=== PATIENT | male | born 1970 | race Caucasian/White ===

== ENCOUNTER 2020-09-13 11:01 | Outpatient (REF) | payer OTHER, SELFPAY ==
--- NOTE | 2020-09-13 11:10 | XR_ITS ---
EXAMINATION: XR CHEST CLINICAL INFORMATION: Cough COMPARISON: Previous chest and right rib x-ray December 2017 TECHNIQUE: 2 views of the chest were obtained. FINDINGS: The cardiac and mediastinal contours are stable. The lungs are clear. There is no pleural effusion or pneumothorax. There is an old right anterior seventh rib fracture. There are degenerative changes of the spine. XR/XR chest 2V IMPRESSION: No evidence for acute disease in the chest.
== END 2020-09-13 11:02 | disposition home or self-care (01) ==
LOC: HO.XRAY 11:01
PROVIDERS: PCP Internal Medicine Medical Oncology; Visit Provider Internal Medicine Medical Oncology
DX: R05 Cough (principal)
CPT/HCPCS: 71046

== ENCOUNTER 2021-08-25 09:23 | Day surgery (SDC) | payer OTHER, SELFPAY ==
[2021-08-19 12:15] VITALS: BMI 39.6
--- NOTE | 2021-08-22 09:27 | P.CONAN_ITS ---
Documented by User: Citlalli Stevens NP 08/22/21 09:28 HPI - Anesthesia Eval Consult details Narrative: 50yo M for Colonoscopy [facility] Past Medical History Medical History (Updated 08/25/21 @ 09:32 by Cheli Ledesma) ADHD (attention deficit hyperactivity disorder) History of meniscal tear Hypertension HAROLDO on CPAP Personal history of COVID-19 Surgical History Surgical History (Updated 08/19/21 @ 12:10 by Dolly Huddleston RN) Hx of umbilical hernia repair Social History Social History Patient Tobacco Use Status: Never used Tobacco Use of substances other than those prescribed or required for medical reasons: No Are you DNR?: No Advance Directives: No Advance Directives Information Provided: Yes Meds Allergies Allergy/AdvReac Type Severity Reaction Status Date / Time pollen Allergy Unknown hives, Uncoded 08/25/21 09:50 sneezing Home Medications Medication Instructions Recorded Confirmed Last Taken Type clonazepam 0.5 mg tablet 1 tab PO BEDTIME 08/19/21 08/19/21 Unknown History lisdexamfetamine 50 mg capsule 1 cap PO QAM 08/19/21 08/19/21 Unknown History (Vyvanse) metoprolol succinate 50 mg 1 tab PO DAILY 08/19/21 08/25/21 08/25/21 08:45 History tablet,extended release 24 hr naproxen 500 mg tablet 1 tab PO Q12H PRN 08/19/21 08/25/21 08/20/21 History sildenafil 100 mg tablet 1 tab PO DAILY PRN 08/19/21 08/19/21 Unknown History sodium hyaluronate (viscosup) mg INTRA-ARTICULAR 08/19/21 Unknown History (Euflexxa) Exam Exam Date and Time: August 22, 2021 0927 Height,Weight and Vital Signs: Height 5 ft 11 in Weight 128.82 kg Assessment and Plan Assessment Anesthesia Assessment: Chart Reviewed Documented by User: Pretty Benson MD 08/25/21 10:14 [facility] Past Medical History Medical History (Updated 08/25/21 @ 09:32 by Cheli Ledesma) ADHD (attention deficit hyperactivity disorder) History of meniscal tear Hypertension HAROLDO on CPAP Personal history of COVID-19 Functional capacity: independent ambulation Family History Family history of problems with anesthesia: No Surgical History Surgical History (Updated 08/19/21 @ 12:10 by Dolly Huddleston RN) Hx of umbilical hernia repair History of Problems with Anesthesia: No Social History Social History Patient Tobacco Use Status: Never used Tobacco Use of substances other than those prescribed or required for medical reasons: No Are you DNR?: No Advance Directives: No Advance Directives Information Provided: Yes Meds Allergies Allergy/AdvReac Type Severity Reaction Status Date / Time pollen Allergy Unknown hives, Uncoded 08/25/21 09:50 sneezing Home Medications Medication Instructions Recorded Confirmed Last Taken Type clonazepam 0.5 mg tablet 1 tab PO BEDTIME 08/19/21 08/19/21 Unknown History lisdexamfetamine 50 mg capsule 1 cap PO QAM 08/19/21 08/19/21 Unknown History (Vyvanse) metoprolol succinate 50 mg 1 tab PO DAILY 08/19/21 08/25/21 08/25/21 08:45 History tablet,extended release 24 hr naproxen 500 mg tablet 1 tab PO Q12H PRN 08/19/21 08/25/21 08/20/21 History sildenafil 100 mg tablet 1 tab PO DAILY PRN 08/19/21 08/19/21 Unknown History sodium hyaluronate (viscosup) mg INTRA-ARTICULAR 08/19/21 Unknown History (Euflexxa) Exam Airway Mallampati Class: IV TM Dist: >3cm Neck ROM: Full Heart: RRR Lungs: CTA Assessment and Plan Final Anesthetic Review Family History of Problems with Anesthesia: No History of Problems with Anesthesia: No Final Preanesthetic Review: No Changes in Pt Med Stat Patient Risk: Intermediate Procedure Risk: Low Anesthetic Plan Anesthetic Plan: MAC: Disposition: Standard PACU
[2021-08-25 09:58] VITALS: BMI 38.3
[2021-08-25 10:00] VITALS: BP 178/81; PULSE 59; RESP 16; TEMP 37.2; O2SAT 96
[2021-08-25] MEDS: Lactated Ringers 1,000 ML 100 ML IVCONT (10:20)
[2021-08-25 11:32] VITALS: BP 128/75; PULSE 62; RESP 16; TEMP 37.2; O2SAT 97
--- NOTE | 2021-08-25 11:34 | PM.OP ---
Brief Operative Note Date of Service: 08/25/21 Pre-op diagnosis: Screening Post-op diagnosis: other (Diverticulosis) Procedure: Colonoscopy to the cecum and TI Surgeon: Michele Brandon Anesthesia: MAC Was an Plasma Processing Centrifuge Operator used for this Procedure?: No Estimated blood loss (mL): 0 Pathology: none sent Condition: stable Disposition: PACU
[2021-08-25 11:47] VITALS: BP 130/79; PULSE 56; RESP 16; TEMP 37.2; O2SAT 97
--- NOTE | 2021-08-25 13:15 | HO.POSTANES ---
Post Anesthesia Evaluation Post Anesthesia Evaluation Vital Signs: Vital Signs Temp Pulse Resp BP Pulse Ox 08/25/21 11:47 99.0 F 56 16 130/79 97 08/25/21 11:32 99.0 F 62 16 128/75 97 08/25/21 10:00 98.9 F 59 16 178/81 H 96 Anesthesia: Monitored Mental Status: Awake Pain Control: Satisfactory Hydration: Adequate Anesthesia-Related Issues: No Anes. Related Issues
--- NOTE | 2021-08-25 13:20 | HO.POSTANES ---
Post Anesthesia Evaluation Post Anesthesia Evaluation Vital Signs: Vital Signs Temp Pulse Resp BP Pulse Ox 08/25/21 11:47 99.0 F 56 16 130/79 97 08/25/21 11:32 99.0 F 62 16 128/75 97 08/25/21 10:00 98.9 F 59 16 178/81 H 96 Anesthesia: Monitored Mental Status: Awake Pain Control: Satisfactory Nausea/Vomiting: None Hydration: Adequate
--- NOTE | 2021-08-25 14:49 | OP_ITS ---
SURGEON: Michele Brandon MD INDICATIONS: The patient presents for evaluation of colorectal cancer screening. Full consent has been obtained from him for this, including risks of bleeding and perforation. PREOPERATIVE DIAGNOSIS: Colorectal cancer screening. POSTOPERATIVE DIAGNOSIS: PROCEDURE PERFORMED: Colonoscopy to cecum and terminal ileum. ESTIMATED BLOOD LOSS: COMPLICATIONS: ANESTHESIA: Monitored anesthesia care. ASSISTANTS: SPECIMENS: POSTOPERATIVE DIAGNOSES: Colorectal cancer screening, sigmoid diverticulosis, and internal hemorrhoids. DESCRIPTION OF PROCEDURE: The patient was placed in the left lateral decubitus position. The digital rectal exam revealed no abnormalities. The Olympus video pediatric colonoscope was entered into the rectum and advanced easily to the cecum. Once in the cecum, I did identify normal-appearing cecal pouch with appendiceal orifice and a normal-appearing ileocecal valve. The terminal ileum was cannulated and appeared normal. The scope was withdrawn back in the colon. The entire cecum and ileocecal valve appeared normal. The scope was slowly withdrawn assessing all mucosal surfaces carefully. Preparation was excellent. I did not visualize any sign of polyps, colitis, nor angiodysplasia. There was a moderate amount of sigmoid diverticulosis. In the rectum, scope was retroflexed visualizing minimal internal hemorrhoids, but no other pathology. The rectal mucosa appeared normal. The scope was straightened out and withdrawn from the patient. He tolerated the procedure well and was returned to the recovery area in stable condition. IMPRESSION: 1. Diverticulosis. 2. Internal hemorrhoids. PLAN: Given today's negative colonoscopy and negative family history, I would recommend a followup colonoscopy in 10 years. He will otherwise see me on a p.r.n. basis. MD CANDELARIO Singh/SARIKA / [phone]
== END 2021-08-25 12:20 | disposition home or self-care (01) ==
PROVIDERS: PCP Internal Medicine Medical Oncology; Visit Provider Internal Medicine
PROC: 0DJD8ZZ Inspection of Lower Intestinal Tract, Via Natural or Artificial Opening Endoscopic (ICD-10-PCS; CPT 45378; principal; 2021-08-25 10:20)
DX: Z12.11 Encounter for screening for malignant neoplasm of colon (principal); K57.30 Diverticulosis of large intestine without perforation or abscess without bleeding; K64.8 Other hemorrhoids; G47.33 Obstructive sleep apnea (adult) (pediatric); I10 Essential (primary) hypertension; Z99.89 Dependence on other enabling machines and devices; Z79.899 Other long term (current) drug therapy; Z86.16 Personal history of COVID-19
CPT/HCPCS: 45378

== ENCOUNTER 2021-12-04 19:30 | Emergency (ER) | payer OTHER, SELFPAY ==
--- NOTE | ~2021-12-04 | XR_ITS ---
EXAMINATION: XR FOOT, LEFT CLINICAL INFORMATION: Puncture male COMPARISON: None TECHNIQUE: AP, lateral, and oblique views of the left foot. FINDINGS: No fracture or dislocation. No evidence for radiopaque foreign body. XR/XR foot LT 2V IMPRESSION: No fracture or dislocation is seen. No radiopaque foreign body is seen.
[2021-12-04 20:36] VITALS: BP 161/95; PULSE 60; RESP 18; TEMP 36.2; O2SAT 97; BMI 37.6
[2021-12-04] MEDS: Diphth,Pertus(ACell),Tet Adult 0.5 ML SYRINGE IM (22:54)
--- NOTE | 2021-12-04 23:17 | ED_ITS ---
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 Patient denies no other trauma. Patient unknown last tetanus shot. Patient denies any active bleeding. Patient states small puncture wound. Related Data Home Medications Medication Instructions Recorded Confirmed clonazepam 0.5 mg tablet 1 tab PO BEDTIME 08/19/21 08/19/21 lisdexamfetamine 50 mg capsule 1 cap PO QAM 08/19/21 08/19/21 (Vyvanse) metoprolol succinate 50 mg 1 tab PO DAILY 08/19/21 08/25/21 tablet,extended release 24 hr naproxen 500 mg tablet 1 tab PO Q12H PRN 08/19/21 08/25/21 sildenafil 100 mg tablet 1 tab PO DAILY PRN 08/19/21 08/19/21 sodium hyaluronate (viscosup) mg INTRA-ARTICULAR 08/19/21 (Euflexxa) Previous Rx's Medication Instructions Recorded ciprofloxacin HCl 500 mg tablet 500 mg PO Q12H 7 Days #14 tab 12/04/21 naproxen 500 mg tablet 500 mg PO BID PRN 10 Days #20 tab 12/04/21 Allergies Allergy/AdvReac Type Severity Reaction Status Date / Time pollen Allergy Unknown hives, Uncoded 08/25/21 09:50 sneezing Review of Systems Review of Systems: NEEDLE FOOT Yes all other systems are reviewed and are negative [facility] Past Medical History Medical History (Updated 12/05/21 @ 00:02 by Skyla Paniagua) ADHD (attention deficit hyperactivity disorder) History of meniscal tear Hypertension HAROLDO on CPAP Personal history of COVID-19 Surgical History Hx of umbilical hernia repair Social History Social History Patient Tobacco Use Status: Never used Tobacco Advance Directives: No Advance Directives Information Provided: Yes Physical Exam Vital Signs: Vital Signs: Last Vital Signs Temp 97.2 F 12/04/21 20:36 Pulse 60 12/04/21 20:36 Resp 18 12/04/21 20:36 BP 161/95 H 12/04/21 20:36 Pulse Ox 97 12/04/21 20:36 BMI result Body Mass Index 37.6 Const: General: cooperative, healthy appearing, comfortable, no acute distress, well developed, alert, awake and Physically active Orien tation/consciousness: patient oriented x3 HENMT: Head: Yes normal to inspection, Yes No palpable skull fracture present, Yes normocephalic, Yes atraumatic and No abrasion Eyes: General: appearance normal, both eyes and all related structures Neck: Neck: Yes normal visual inspection, Yes full ROM, Yes no lymphadenopathy, Yes no meningeal signs, Yes trachea midline, Yes supple, No anterior neck swelling and No tender Chest: Chest palpation & inspection: normal inspection of the chest and normal palpation of entire chest wall Resp: Effort & Inspection: normal respiratory effort and able to speak in complete sentences Auscultation: clear to auscultation bilaterally Cardio: Jugular venous distension: no JVD Heart sounds: S1 normal heart sound present and S2 normal heart sound present GI: Inspection: Yes normal to inspection and No abdominal wall ecchymosis Palpation (GI): Soft to palpation, not firm, nontender, no guarding and not rigid : General: No CVA tenderness and Yes no CVA tenderness Back/Spine/Pelvis: Back: no CVA tenderness, No CVA tenderness and No back tenderness Skin: General skin exam: no rashes or lesions noted and elasticity normal Neuro: General: patient oriented x3, gait normal, no meningeal signs and CN's II-XI intact bilaterally Cranial nerves: Yes CN's II-XII intact bilaterally Extrem: General: Yes normal to inspection and Yes full ROM Ankle/foot/toe images: 1. VERY SMALL SUPERFICIAL PUNCTURE WOUND. NO ACTIVE BLEEDING. NO OBVIOUS FOREIGN BODY. NEURO/MOTOR/VASCULAR EXAM INTACT Psych: Appearance: grossly normal, well kempt and not disheveled Course Course Course Narrative: FOOT X-RAY ORDERED. Reevaluation(s) Reevaluation #1: X-RAY OF FOOT NEGATIVE FOR ANY FOREIGN BODY. TDAP ORDERED. PATIENT WILL BE DISCHARGED WITH CIPRO DUE TO NEEDLE GOING THROUGH BOOT GOING TO FOOT. Time: 23:21 MDM - Extremity Injury (Lower) MDM Narrative Medical decision making narrative: NAIL THROUGH FOOT Discharge Plan Discharge Clinical Impression: Puncture wound of foot Patient Disposition: Home, Self-Care Instructions: Puncture Wound (DC), Puncture Wound in the Foot (ED) Additional Instructions: YOU WILL BE DISCHARGED WITH ANTIBIOTICS TO PREVENT INFECTION. RETURN TO THE ED IMMEDIATELY FOR ANY SWELLING, REDNESS, PUS DISCHARGE, FOUL ODOR, FEVER, CHILLS, OR ANY OTHER CONCERNING SYMPTOMS. Prescriptions: New ciprofloxacin HCl 500 mg tablet 500 mg PO Q12H 7 Days Qty: 14 0RF naproxen 500 mg tablet 500 mg PO BID PRN (Reason: pain) 10 Days Qty: 20 0RF No Action metoprolol succinate 50 mg tablet extended release 24 hr 1 tab PO DAILY 0RF clonazepam 0.5 mg tablet 1 tab PO BEDTIME 0RF sildenafil 100 mg tablet 1 tab PO DAILY PRN (Reason: Erectile Dysfunction) 0RF naproxen 500 mg tablet 1 tab PO Q12H PRN (Reason: Pain) 0RF Vyvanse 50 mg capsule 1 cap PO QAM 0RF Euflexxa 10 mg/mL(mw 2.4 -3.6 million) syringe INTRA-ARTICULAR 0RF Referrals: [facility] [Outside] - 2 days (NAIL IN FOOT AT WORK) Stand Alone Forms: Work/School Release Interventions: ED Discharge Assessment Last Done: 12/04/21 23:29 Discharge Date/Time: 12/04/21 23:29 Print Language: Sami
== END 2021-12-04 23:29 | disposition home or self-care (01) ==
PROVIDERS: Emergency Provider Emergency Medicine Emergency Medical Services; PCP Internal Medicine Medical Oncology
DX: S91.332A Puncture wound without foreign body, left foot, initial encounter (principal); W45.0XXA Nail entering through skin, initial encounter; Y93.89 Activity, other specified; Y92.89 Other specified places as the place of occurrence of the external cause; Y99.0 Civilian activity done for income or pay
CPT/HCPCS: 73620; 90471; 90715; 99283; 99284

== ENCOUNTER → 2021-12-05 09:37 | Outpatient (BNVA) | payer OTHER, SELFPAY | PROVIDERS: PCP Internal Medicine Medical Oncology; Visit Provider Internal Medicine | DX: S91.132A Puncture wound without foreign body of left great toe without damage to nail, initial encounter (principal); W45.0XXA Nail entering through skin, initial encounter | CPT/HCPCS: 99203 ==

== ENCOUNTER 2022-07-29 14:00 | Outpatient (RCR) | payer OTHER, SELFPAY | END 2022-07-29 16:29 | disposition home or self-care (01) | LOC: HO.PTCHIC 14:00 | PROVIDERS: PCP Internal Medicine Medical Oncology; Visit Provider Orthopaedic Surgery | DX: Z96.651 Presence of right artificial knee joint (principal) | CPT/HCPCS: 97014; 97110; 97140; 97161; 97530 ==

== ENCOUNTER 2022-10-02 14:00 | Outpatient (RCR) | payer OTHER, SELFPAY | END 2022-10-02 15:19 | disposition home or self-care (01) | LOC: HO.PTCHIC 14:00 | PROVIDERS: PCP Internal Medicine Medical Oncology; Visit Provider Orthopaedic Surgery | DX: M17.9 Osteoarthritis of knee, unspecified (principal) | CPT/HCPCS: 97110; 97140; 97161; 97530 ==

== ENCOUNTER 2023-05-01 07:45 | Outpatient (REF) | payer OTHER, SELFPAY ==
[2023-05-01 08:25] LABS: MANUAL DIFF FLAG NO
[2023-05-01 08:51] LABS: Basophils Percent Auto 0.1 % (0-2); Eosinophils Absolute Auto 0.2 X10*3/uL (0.0-0.4); Eosinophils Percent Auto 3.4 % (0-4); Hematocrit 44.9 % (42.0-52.0); Hemoglobin 15.2 g/dl (14.0-18.0); Imm Gran Abs Auto 0.02 X10*3/uL (0.00-0.03); Imm Gran Pct Auto 0.3 % (0.0-0.4); Lymphocytes Absolute Auto 1.9 X10*3/uL (1.2-4.9); Lymphocytes Percent Auto 27.1 % (20-40); Mean Corpuscular HGB Conc 33.9 g/dl (31.0-36.0); Mean Corpuscular Volume 85.5 fL (80.0-98.0); Mean Platelet Volume 9.7 fL (9.4-12.4); Monocytes Absolute Auto 0.6 X10*3/uL (0.1-1.2); Monocytes Percent Auto 8.7 % (2-11); Neutrophils Absolute Auto 4.1 x10*3/uL (2.0-8.3); Neutrophils Percent Auto 60.4 % (45-73); Platelet Count 201 X10*3/uL (160-400); Red Blood Count 5.25 X10*6/uL (4.60-5.80); White Blood Count 6.8 X10*3/uL (4.8-10.8)
[2023-05-01 09:19] LABS: Alanine Aminotransferase 26 U/L (0-40); Albumin Level 3.8 g/dL (3.5-5.0); Alkaline Phosphatase 61 U/L (39-117); Anion Gap 14 (12-20); Aspartate Amino Transferase 20 U/L (5-37); Bilirubin Total 1.6 mg/dL (0.0-1.0); Blood Urea Nitrogen 16 mg/dL (9-16); Calcium 8.7 mg/dL (8.4-10.2); Carbon Dioxide 21 mmol/L (22-29); Chloride 109 mmol/L (96-108); Cholesterol 163 mg/dL; Estimated Glomerular Filt Rate > 60; Glucose Random 107 mg/dL (60-115); HDL Cholesterol 43 mg/dL; LDL Cholesterol Calculated 101 mg/dl; Potassium 3.8 mmol/L (3.3-5.1); Sodium 140 mmol/L (135-145); Total Protein 6.7 g/dL (6.5-8.0); Triglycerides 99 mg/dL
[2023-05-01 09:45] LABS: Prostate Specific Antigen 1.29 ng/mL (<0.05-4.0)
== END 2023-05-01 07:46 | disposition home or self-care (01) ==
LOC: HO.LAB 07:45
PROVIDERS: PCP Internal Medicine Medical Oncology; Visit Provider Internal Medicine Medical Oncology
DX: Z12.5 Encounter for screening for malignant neoplasm of prostate (principal); I10 Essential (primary) hypertension; E66.01 Morbid (severe) obesity due to excess calories
CPT/HCPCS: 36415; 80053; 80061; 84153; 85025

== ENCOUNTER 2024-12-14 06:39 | Outpatient (REF) | payer BC, SELFPAY ==
--- OUTSIDE RECORDS SUMMARY | 2024-12-14 06:42 | XMS_ITS ---
Author Organization Michele Alexander III, MD Address [address] [place] [address] Care Team Providers Care Glass Designer Name Role Phone Michele Alexander Primary Care Provider Allergies Allergen (clinical drug ingredient) Drug/Non Drug Allergy documented on EMR Reaction Allergy Type Onset Date Status Pollen Pollen Unknown Allergy Active REASON FOR VISIT Morbid obesity, Pruritic dermatitis chest wall, Benign prostatic plasia, Sleep apnea, Hearing loss,Hypertension Medications Medication SIG (Take, Route, Frequency, Duration) Notes Start Date End Date Status Triamcinolone Acetonide 0.1 % 1 application Externally twice a day for 30 days 09/18/2024 Active Zepbound 7.5 MG/0.5ML 0.5 mL Subcutaneou s weekly dispense 4 pens 07/03/2024 Active Viagra 100 MG 1 tablet as needed Orally Once a day 01/31/2019 Active Lisinopril 40 MG 1 tablet Orally Once a day 09/13/2023 Active Vyvanse 50 MG 1 capsule in the morning Orally Once a day Active Metoprolol Succinate ER 100 MG TAKE 1 TABLET BY MOUTH EVERY DAY Active Naproxen 500 MG TAKE 1 TABLET BY MOUTH EVERY 12 HOURS WITH FOOD OR MILK NEEDED Active Social History Tobacco Use: Social History Observation Description Date Details (start date - stop date) Never Smoker NA - NA Sex Assigned At : Social History Observation Description Sex Assigned At Male Tobacco Use/Smoking Question Answer Notes Patient is a nonsmoker Additional Findings: Tobacco Non-User Aggressive non-smoker Alcohol Screen Question Answer Notes Did you have a drink contain ing alcohol in the past year? Yes How often did you have a dri nk containing alcohol in the past year? 2 to 4 times a month (2 points) How many drinks did you have on a typical day when you were drinking in the past year? 1 or 2 drinks (0 point) How often did you have 6 or more drinks on one occasion in the past year? Never (0 point) Points 2 Interpretation Negative Problems Problem Type SNOMED Code ICD Code Onset Dates Problem Status W/U Status Risk Notes Problem [id number] Other obesity due to excess calories (E66.09) Active confirmed He has lost 12 pounds since his last visit. He was continued on current medication without change. Follow-up was arranged. Vital Signs Temperature 97.9 degrees Fahrenheit 09/18/20 24 Blood pressure systolic 140 mm Hg 09/18/20 24 Blood pressure diastolic 82 mm Hg 024 Heart Rate 60 /min 09/18/2024 Height 70 in 09/18/2024 Weight 269 lbs 09/18/2024 BMI 38.59 kg/m2 09/18/2024 Encounters Encounter Location Date Provider Diagnosis Michele Alexander III, MD [address] [place] [address] [place] [address] 09/18/2024 Michele Alexander Sleep apnea G47.30 ; Other obesity due to excess calories E66.09 ; ADHD (attention deficit hyperactivity disorder) F90.9 ; Sensorineural hearing loss (SNHL) of right ear with unrestricted hearing of left ear H90.41 ; BPH (benign prostatic hyperplasia) N40.0 ; Right knee pain M25.561 ; Essential hypertension I10 and Dermatitis, unspecified L30.9 Assessments Encounter Date Diagnosis (ICD Code) Assessment Notes Treat ment Notes Treatment Clinical Notes 09/18/2024 Sleep apnea (ICD-10 - G47.30) He says he is using his CPAP machine and likes it very much. He has one for home and one for travel. 09/18/2024 Other obesity due to excess calories (ICD-10 - E66.09) He has lost 15 pounds since his last visit in June 2024. He was continued on current medication without change. Follow-up was arranged. 09/18/2024 ADHD (attention deficit hyperactivity disorder) (ICD-10 - F90.9) His deficit is stable and requires no treatment at this time. 09/18/2024 Sensorineural hearing loss (SNHL) of right ear with unrestricted hearing of left ear (ICD-10 - H90.41) There is nothing in his history other than his employment in the [employer] that would cause hearing loss. 09/18/2024 BPH (benign prostatic hyperplasia) (ICD-10 - N40.0) We have discussed lifestyle modifications which are reduced nocturnal urinating. He rises on the average of once a night. No change in his regimen was needed. 09/18/2024 Right knee pain (ICD-10 - M25.561) His knee pain is mild to moderate and does not interfere with work. He uses ibuprofen and Tylenol and rest. 09/18/2024 Essential hypertension (ICD-10 - I10) His blood pressure is coming under control. He is continuing his efforts is sodium restriction weight loss and physical activity. He finds the arthritis in his right knee eliminating his activity. We discussed her weight reduction diet at length. 09/18/2024 Dermatitis, unspecified (ICD-10 - L30.9) He was givenn a supply of triamcinolone to use. Plan Of Treatment Medication Medication Name Sig Start Date Stop Date Notes Triamcinolone Acetonide 0.1 % 1 application Externally twice a day for 30 days 09/18/2024 Zepbound 7.5 MG/0.5ML 0.5 mL Subcutaneou s weekly 07/03/2024 dispense 4 pens Viagra 100 MG 1 tablet as needed Orally Once a day 01/31/2019 Lisinopril 40 MG 1 tablet Orally Once a day 09/13/2023 Vyvanse 50 MG 1 capsule in the morning Orally Once a day Metoprolol Succinate ER 100 MG TAKE 1 TABLET BY MOUTH EVERY DAY Naproxen 500 MG TAKE 1 TABLET BY AVEL TH EVERY 12 HOURS WITH FOOD OR MILK NEEDED Pending Test Test Name Order Date PROFILE, FASTING (COMPREHENSIVE METABOLI C) 09/18/2024 MAGNESIUM 09/18/2024 CBC w DIFF 09/18/2024 Uric Acid 09/18/2024 Lipid Panel 09/18/2024 Next Appt Details Follow Up: 8 weeks, In eight weeks, Reason: ov review labs, Routine follow-up and review of blood work results Provider Name:Michele Alexander, 12/15/2024 03:15:00 PM, [address] [facility] [address], [place], [id number], Provider Name:Michele Alexander, 05/15/2025 04:00:00 PM, [address] [facility] [address], [place], [address], Progress Notes * ALIYAHEdgar RUCKER RDOB:1970 (53 yo M)Acc No.[id number]:09/18/2024 Progress Notes Patient:?Edgar HANKINS Provider:?Michele Alexander MD :1970???Age:53 Y???Sex:Male Michael e:09/18/2024 Address:[address] [place], [place] [id number] Subjective: * Chief Complaints: * ???Morbid obesityPruritic de rmatitis chest wallBenign prostatic plasiaSleep apneaHearing lossHypertension * HPI: ???COVID-19 Screening:?Questions?Have you had any new onset fever, chills, cough, congestion, sore throat, shortness of breath, muscle aches??No ???:?The patient, a 53-year-old male, presented with a complaint of itchiness on his chest. The symptom has been persistent, with no specific triggers or relieving factors identified. The patient also reported a significant weight loss of 15 lbs from June to September, which was intentional and associated with medication. The patient also reported a cough and high blood pressure readings at home. The patient's blood pressure was measured in the clinic and found to be 140/84. The patient is currently on zepbound the dose of which is 7.5, and has not reported any side effects. * ROS:?General/Constitutional:?pain?Right knee with weightbearing.?Chills?denies.?Fatigue?admits.?Fever?denies.?Admits?Weight loss.?Allergy/Immunology:?Admits?Cough.?ENT:?Decreased hearing?denies.?Respiratory:?Cough?denies.?Cardiovascular:?Chest pain with exertion?denies.?Dyspnea on exertion?denies.?Shortness of breath?denies.?Gastrointestinal:?Constipation?occasional.?Decreased appetite?denies.?Diarrhea?denies.?Heartburn?denies.?Nausea?denies.?Rectal bleeding?denies.?Vomiting?denies.?Hematology:?bruising?denies.?petechiae?denies.?Swollen glands?none have been noted.?Genitourinary:?Frequent urination?once a night.?Musculoskeletal:?Muscle aches?denies.?Painful joints?Knees.?Sciatica?denies.?Weakness?denies.?Skin:?Itching?Area unsterile folliculitis over her sternum.?Rash?denies.?Skin lesion(s)?denies.?Neurologic:?Difficulty speaking?denies.?Dizziness?denies.?Headache?denies.?Low back pain?denies.?Psychiatric:?Depressed mood?denies.? * Medical History:? * Surgical History:?colonoscop y 1right knee replacement surgery, [facility] 05/2022left knee replacement surgery, [facility] 07/2022No history * Hospitalization/Major Diagno stic Procedure:?No history * Family History:?Father: ladan e 64 yrs, tachycardic,smoker.?Mother: alive 64 yrs, type II diabetes, obesity, hyperthyroidism, hypertension, breast cancer.?Spouse: alive 38 yrs.?1 brother(s) , 1 sister(s) - healthy. 2 son(s) - healthy. .? He has a history of maternal breast cancer. There is no history of ovarian, uterine, pancreatic or prostate cancer. He is not aware of any family history of mental illness or substance use disorder. * Social History:?Tobacco Use:?Tobacco Use/Smoking?Patient is a?nonsmoker ?Additional Findings: Tobacco Non-User?Aggressive non-smoker ???Drugs/Alcohol:?Drugs?Have you used drugs other than those for medical reasons in the past 12 months??No ?Alcohol Screen?Did you have a drink containing alcohol in the past year??Yes ?How often did you have a drink containing alcohol in the past year??2 to 4 times a month (2 points) ?How many drinks did you have on a typical day when you were drinking in the past year??1 or 2 drinks (0 point) ?How often did you have 6 or more drinks on one occasion in the past year??Never (0 point) ?Points?2 ?Interpretation?Negative ???He was born in [place], [place]. 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 He is with children. He has no temple objection to blood transfusion. 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 * Medications:?TakingVyvanse 5 0 MG Capsule 1 capsule in the morning Orally Once a day Naproxen 500 MG Tablet TAKE 1 TABLET BY MOUTH EVERY 12 HOURS WITH FOOD OR MILK NEEDED Viagra 100 MG Tablet 1 tablet as needed Orally Once a day Lisinopril 40 MG Tablet 1 tablet Orally Once a day Zepbound 7.5 MG/0.5ML Solution Auto-injector 0.5 mL Subcutaneous weekly , stop date 06/28/2025, Notes to Pharmacist: dispense 4 pensMetoprolol Succinate ER 100 MG Tablet Extended Release 24 Hour TAKE 1 TABLET BY MOUTH EVERY DAY Taking Vyvanse 50 MG Capsule 1 capsule in the morning Orally Once a day Taking Naproxen 500 MG Tablet TAKE 1 TABLET BY MOUTH EVERY 12 HOURS WITH FOOD OR MILK NEEDED Taking Viagra 100 MG Tablet 1 tablet as needed Orally Once a day Taking Lisinopril 40 MG Tablet 1 tablet Orally Once a day Taking Zepbound 7.5 MG/0.5ML Solution Auto-injector 0.5 mL Subcutaneous weekly , stop date 06/28/2025, Notes to Pharmacist: dispense 4 pensTaking Metoprolol Succinate ER 100 MG Tablet Extended Release 24 Hour TAKE 1 TABLET BY MOUTH EVERY DAY DiscontinuedZepbound 5 MG/0.5ML Solution Auto-injector 0.5 mL Subcutaneous weekly Medication List reviewed and reconciled with the patientDiscontinued Zepbound 5 MG/0.5ML Solution Auto-injector 0.5 mL Subcutaneous weekly Medication List reviewed and reconciled with the patient * Allergies:?Pollenno[Allergie s Verified] Objective: * Vitals:?Ht: 70, Wt: 269, BMI :38.59, BP: 140/82, HR: 60, Temp: 97.9, Ht-cm: 177.8, Wt-k.02. * Examination: ???General Examination: ?GENERAL APPEARANCE:?pleasant, well nourished, well developed, in no acute distress, calm and relaxed, obese, man.?HEAD:?atraumatic, normocephalic.?EYES:?eomi, perrla, anicteric, conjugate.?EARS:?normal.?NOSE:?septum intact.?ORAL CAVITY:?normal, unremarkable.?NECK/THYROID:?no jugular venous distention, no carotid bruit, thyroid normal.?LYMPH NODES:?no enlarged lymph nodes,spleen normal.?SKIN:?no suspicious lesions, anicteric, Area of folliculitis over his sternum about 5 cm in diameter.?HEART:?no clicks, gallops, murmurs, or rubs, regular rhythm, S1, S2 normal, no s3, or vascular bruits.?LUNGS:?clear to auscultation .?BREASTS:??no masses palpable bilaterally.?ABDOMEN:?bowel sounds normal, no ascites, no organomegaly, no mass, centripital obesity.?RECTAL EXAM:?not examined.?MUSCULOSKELETAL:?extremities unremarkable, no clubbing, cyanosis or edema.?PERIPHERAL PULSES:?normal.?NEUROLOGIC:?alert and oriented, cranial nerves 2-12 grossly intact, deep tendon reflexes 2+ symmetrical, motor strength normal upper and lower extremities, sensory exam intact.?PSYCH:?alert, oriented.? : ???{'Chest Examination':'Itchiness observed, no signs of infection', 'Blood Pressure Measurement': '140/84'}. ??? Assessment: * Assessment: 1.?Other obesity due to exce ss calories - E66.09 (Primary)???Notes :He has lost 15 pounds since his last visit in June 2024.? He was continued on current medication without change.? Follow-up was arranged.???2.?Sleep apnea - G47.30???Notes :He says he is using his CPAP machine and likes it very much. He has one for home and one for travel.???3.?ADHD (attention deficit hyperactivity disorder) - F90.9???Notes :His deficit is stable and requires no treatment at this time.???4.?Sensorineural hearing loss (SNHL) of right ear with unrestricted hearing of left ear - H90.41???Notes :There is nothing in his history other than his employment in the [employer] that would cause hearing loss.???5.?BPH (benign prostatic hyperplasia) - N40.0???Notes :We have discussed lifestyle modifications which are reduced nocturnal urinating. He rises on the average of once a night. No change in his regimen was needed.???6.?Right knee pain - M25.561???Notes :His knee pain is mild to moderate and does not interfere with work. He uses ibuprofen and Tylenol and rest.???7.?Essential hypertension - I10???Notes :His blood pressure is coming under control. He is continuing his efforts is sodium restriction weight loss and physical activity. He finds the arthritis in his right knee eliminating his activity. We discussed her weight reduction diet at length.???8.?Dermatitis, unspecified - L30.9???Notes :He was givenn a supply of triamcinolone to use.??? Plan: * Treatment: 2.?Right knee pain?LAB: PROFILE, FASTING (COMPREHENSIVE METABOLIC) ?LAB: MAGNESIUM ?LAB: CBC w DIFF ?LAB: Uric Acid ?LAB: Lipid Panel 3.?Essential hypertension?LAB: PROFILE, FASTING (COMPREHENSIVE METABOLIC) ?LAB: MAGNESIUM ?LAB: CBC w DIFF ?LAB: Uric Acid ?LAB: Lipid Panel 4.?Others? Continue Naproxen Tablet, 500 MG, TAKE 1 TABLET BY MOUTH EVERY 12 HOURS WITH FOOD OR MILK NEEDED.?? * Procedure Codes:? * Preventive Medicine:? ??Counseling:?Care goal follow-up plan:?Counseling for abnormal BMI given?Yes ?Above Normal BMI Follow-up?Dietary management education, guidance, and counseling, Dietary needs education, Exercise promotion: strength training, Exercise promotion: stretching, Feeding regime, Giving encouragement to exercise, Lifestyle education regarding diet, Nutrition / feeding management, Nutrition therapy, Prescribed activity/exercise education, Prescribed diet education, Prescribed dietary intake, Special diet education, Weight monitoring , Intervention, Order not done: Medical or Other reason not done * Follow Up:?8 weeks, In eight weeks (Reason: ov review labs, Routine follow-up and review of blood work results) * Images: * Sign off status: Completed true * Provider:?Michele Alexander MD Date:?09/03 Generated for Ramya montez/El/Trinoitting on:?12/14/2024 06:42 AM EDT History and Physical Notes * HPI (History of Present Illness) Category Sub-Category Detail Notes COVID-19 Screening Questions Have you had any new onset fever, chills, cough, congestion, sore throat, shortness of breath, muscle aches?: No Examination Category Sub-Category Detail Notes General Examination GENERAL APPEARANCE: pleasant , well nourished, well developed, in no acute distress, calm and relaxed, obese, man HEAD: atraumatic, normocep halic EYES: eomi, perrla, anicte hailey, conjugate EARS: normal NOSE: septum intact NECK/THYROID: no jugular venous di stention, no carotid bruit, thyroid normal HEART: no clicks, gallops, murmurs, or rubs, regular rhythm, S1, S2 normal, no s3, or vascular bruits LUNGS: clear to auscultatio n ABDOMEN: bowel sounds normal, no ascites, no organomegaly, no mass, centripital obesity NEUROLOGIC: alert and oriented, cranial nerves 2-12 grossly intact, deep tendon reflexes 2+ symmetrical, motor strength normal upper and lower extremities, sensory exam intact SKIN: no suspicious lesion s, anicteric, Area of folliculitis over his sternum about 5 cm in diameter PERIPHERAL PULSES: normal BREASTS: no masses palpable b ilaterally MUSCULOSKELETAL: extremities unremark able, no clubbing, cyanosis or edema LYMPH NODES: no enlarged lymph no tess,spleen normal RECTAL EXAM: not examined PSYCH: alert, oriented ORAL CAVITY: normal, unremarkable
--- OUTSIDE RECORDS SUMMARY | 2024-12-14 06:42 | XMS_ITS ---
Author Organization Michele Alexander III, MD Address [address] [place] [address] [place] [id number] Care Team Providers Care Script Artist Name Role Phone Michele Alexander Primary Care Provider [phone] Allergies Allergen (clinical drug ingredient) Drug/Non Drug Allergy documented on EMR Reaction Allergy Type Onset Date Status Pollen Pollen Unknown Allergy Active REASON FOR VISIT follow up Medications Medication SIG (Take, Route, Frequency, Duration) Notes Start Date End Date Status Metoprolol Succinate ER 100 MG TAKE 1 TABLET BY MOUTH EVERY DAY Active Naproxen 500 MG TAKE 1 TABLET BY MOUTH EVERY 12 HOURS Orally every 12 hrs Active Viagra 100 MG 1 tablet as needed Orally Once a day 01/31/2019 Active Vyvanse 50 MG 1 capsule in the morning Orally Once a day Active Lisinopril 40 MG 1 tablet Orally Once a day 09/13/2023 Active Triamcinolone Acetonide 0.1 % 1 application Externally twice a day 09/18/2024 Active Zepbound 7.5 MG/0.5ML 0.5 mL Subcutaneou s weekly dispense 4 pens 07/03/2024 Active Social History Tobacco Use: Social History Observation Description Date Details (start date - stop date) Never Smoker NA - NA Sex Assigned At : Social History Observation Description Sex Assigned At Male Tobacco Use/Smoking Question Answer Notes Patient is a nonsmoker Additional Findings: Tobacco Non-User Aggressive non-smoker Encounters Encounter Location Date Provider Diagnosis Michele Alexander III, MD [address] [place] [address] [place] [id number] 12/11/2024 Michele Alexander BPH (benign prostatic hyperplasia) N40.0 Assessments Encounter Date Diagnosis (ICD Code) Assessment Notes Treatment Notes Treatment Clinical Notes 12/11/2024 BPH (benign prostatic hyperplasia) (ICD-10 - N40.0) We have discussed lifestyle modifications which are reduced nocturnal urinating. He rises on the average of once a night. No change in his regimen was needed. Plan Of Treatment Medication Medication Name Sig Start Date Stop Date Notes Metoprolol Succinate ER 100 MG TAKE 1 TABLET BY MOUTH EVERY DAY Naproxen 500 MG TAKE 1 TABLET BY AVEL TH EVERY 12 HOURS Orally every 12 hrs Viagra 100 MG 1 tablet as needed Orally Once a day 01/31/2019 Vyvanse 50 MG 1 capsule in the morning Orally Once a day Lisinopril 40 MG 1 tablet Orally Once a day 09/13/2023 Triamcinolone Acetonide 0.1 % 1 application Externally twice a day 09/18/2024 Zepbound 7.5 MG/0.5ML 0.5 mL Subcutaneou s weekly 07/03/2024 dispense 4 pens Next Appt Details Provider Name:Michele Alexander, 12/15/2024 03:15:00 PM, [address] [place] [address] [address], [place], [id number], Provider Name:Michele Alexander, 05/15/2025 04:00:00 PM, [address] [place] [address] [address], [place], [id number], Progress Notes * Edgar HANKINS RDOB:1970 (54 yo M)Acc No.[id number]:12/11/2024 Progress Notes Patient:?ALIYAHEdgar RUCKER Provider:?Michele Alexander MD :1970???Age:54 Y???Sex:Male Michael e:12/11/2024 Address:[address] [place], [place] [id number] Subjective: * Chief Complaints: * ???1. Follow up. * HPI: ???COVID-19 Screening:?Questions?Have you had any new onset fever, chills, cough, congestion, sore throat, shortness of breath, muscle aches??No * ROS:?General/Constitutional:?pain?only normal aches and pains.?Chills?denies.?Fatigue?admits.?Fever?denies.?ENT:?Decreased hearing?denies.?Respiratory:?Cough?denies.?Cardiovascular:?Chest pain with exertion?denies.?Dyspnea on exertion?denies.?Shortness of breath?denies.?Gastrointestinal:?Constipation?denies.?Decreased appetite?denies.?Diarrhea?denies.?Heartburn?denies.?Nausea?denies.?Rectal bleeding?denies.?Vomiting?denies.?Hematology:?bruising?denies.?petechiae?denies.?Swollen glands?none have been noted.?Genitourinary:?Frequent urination?denies.?Musculoskeletal:?Muscle aches?denies.?Painful joints?denies.?Sciatica?denies.?Weakness?denies.?Skin:?Itching?denies.?Rash?denies.?Skin lesion(s)?denies.?Neurologic:?Difficulty speaking?denies.?Dizziness?denies.?Headache?denies.?Low back pain?denies.?Psychiatric:?Depressed mood?denies.? * Medical History:?Sleep apnea , Severe osteoarthritis, right knee, Attention deficit disorder, February 2015 fracture mandible in hockey, Umbilical hernia, Essential hypertension, Morbid obesity, {'High Blood Pressure': 'Patient reported high readings at home'}. * Surgical History:?colonoscop y 08/2021, right knee replacement surgery, [facility] 05/2022, left knee replacement surgery, [facility] 07/2022, No history . * Hospitalization/Major Diagno stic Procedure:?No history . * Family History:?Father: ladan sanders 64 yrs, tachycardic,smoker.?Mother: alive 64 yrs, type [...] is a?nonsmoker ?Additional Findings: Tobacco Non-User?Aggressive non-smoker ???He was born in [place], [place]. 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 He is with children. He has no jewish objection to blood transfusion. 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 * Medications:?Taking Naproxen 500 MG Tablet TAKE 1 TABLET BY MOUTH EVERY 12 HOURS Orally every 12 hrs , Taking Metoprolol Succinate ER 100 MG Tablet Extended Release 24 Hour TAKE 1 TABLET BY MOUTH EVERY DAY , Taking Vyvanse 50 MG Capsule 1 capsule in the morning Orally Once a day , Taking Viagra 100 MG Tablet 1 tablet as needed Orally Once a day , Taking Lisinopril 40 MG Tablet 1 tablet Orally Once a day , Taking Zepbound 7.5 MG/0.5ML Solution Auto-injector 0.5 mL Subcutaneous weekly , Notes to Pharmacist: dispense 4 pens, Taking Triamcinolone Acetonide 0.1 % Cream 1 application Externally twice a day , Medication List reviewed and reconciled with the patient * Allergies:?Pollen. Objective: * Vitals:? * Examination: ???General Examination: ?GENERAL APPEARANCE:?pleasant, well nourished, well developed, in no acute distress, calm and relaxed.?HEAD:?atraumatic, normocephalic.?EYES:?eomi, perrla, anicteric, conjugate.?EARS:?normal.?NOSE:?septum intact.?ORAL CAVITY:?normal, unremarkable.?NECK/THYROID:?no jugular venous distention, no carotid bruit, thyroid normal.?LYMPH NODES:?no enlarged lymph nodes,spleen normal.?SKIN:?no suspicious lesions, anicteric.?HEART:?no clicks, gallops, murmurs, or rubs, regular rhythm, S1, S2 normal, no s3, or vascular bruits.?LUNGS:?clear to auscultation .?BREASTS:??no masses palpable bilaterally.?ABDOMEN:?bowel sounds normal, no ascites, no organomegaly, no mass.?RECTAL EXAM:?not examined.?MUSCULOSKELETAL:?extremities unremarkable, no clubbing, cyanosis or edema.?PERIPHERAL PULSES:?normal.?NEUROLOGIC:?alert and oriented, cranial nerves 2-12 grossly intact, deep tendon reflexes 2+ symmetrical, motor strength normal upper and lower extremities, sensory exam intact.?PSYCH:?alert, oriented.? Assessment: * Assessment: 1.?BPH (benign prostatic hyp erplasia) - N40.0???Notes :We have discussed lifestyle modifications which are reduced nocturnal urinating. He rises on the average of once a night. No change in his regimen was needed.??? Plan: * Treatment: 2.?Others? Continue Naproxen Tablet, 500 MG, TAKE 1 TABLET BY MOUTH EVERY 12 HOURS, Orally, every 12 hrs.?? * Images: * The named appointment provid er may or may not be the originator of this progress note, and it is not deemed complete until electronically signed by the appointment provider. Sign off status: Pending * Provider:?Michele Alexander MD Date:?12/02 Generated for Ramya montez/El/Trinoitting on:?12/14/2024 06:42 AM [...] developed, in no acute distress, calm and relaxed HEAD: atraumatic, normocep halic EYES: eomi, perrla, anicte hailey, conjugate EARS: normal NOSE: septum intact NECK/THYROID: no jugular venous di stention, no carotid bruit, thyroid normal HEART: no clicks, gallops, murmurs, or rubs, regular rhythm, S1, S2 normal, no s3, or vascular bruits LUNGS: clear to auscultatio n ABDOMEN: bowel sounds normal, no ascites, no organomegaly, no mass NEUROLOGIC: alert and oriented, cranial nerves 2-12 grossly intact, deep tendon reflexes 2+ symmetrical, motor strength normal upper and lower extremities, sensory exam intact SKIN: no suspicious lesion s, anicteric PERIPHERAL PULSES: normal BREASTS: no masses palpable b ilaterally MUSCULOSKELETAL: extremities unremark able, no clubbing, cyanosis or edema LYMPH NODES: no enlarged lymph no tess,spleen normal RECTAL EXAM: not examined PSYCH: alert, oriented ORAL CAVITY: normal, unremarkable
--- OUTSIDE RECORDS SUMMARY | 2024-12-14 06:42 | XMS_ITS | Encounter Summary ---
Author Name [facility] [place] Organization [facility] [place] Address [address] [place] [address] Care Team Providers Care Bark Scaler Name Role Phone IMELDA LAWRENCE Primary Care Provider Unavailabl e Insurance Providers: All historical and current Section Date Range: From patient's date of to the date document was created. This section includes the names of all active insurance providers for the patient. Insurance Provider Type of Coverage Plan Name Start of Policy Coverage End of Policy Coverage Group Number Member ID Insurance Provider's Telephone Number Policy Archibald's Name Patient's Relationship to Policy Archibald BCBS FORMERLY [facility]GAN[facility] FIRE DEPT Apr 03, 2024 [id number] Nathalie LY PATIENT [employer] ([id number]) PRESCRIPT [facility] Apr 03, 2018 [id number] Elza LY SPOUSE Selected Encounter This section includes the information on record at [place] for the Encounter. Date/Time Encounter Type Encounter Description Reason Provider Source Dec 24, 2023 01:00 PM PSYTX W PT 60 MINUTES [facility] - [facility] ICD-10-CM F43.10 Post-traumatic stress disorder, unspecified JUDY HUNTER Encounter Template Text not used by [facility] Assessments - Encounter Diagnoses This section includes the primary and secondary diagnoses documented for the Encounter. Date/Time Primary/Secondary Diagnosis Diagnosis Name Provider Source Dec 24, 2023 03:30 PM PRIMARY Post-traumatic stress disorder, unspecified JUDY HUNTER [facility] Plan of Treatment: Future Appointments (+ 6 months) and Future Tests (+/- 45 days) The Plan of Treatment section includes future care [facility] the [facility] This section includes future appointments and future orders which are active, pending or scheduled. Future Appointments This section includes appointments that were scheduled to occur 6 months from the date of the Encounter, up to a maximum of 20 appointments. The data comes from all [place] treatment facilities. Appointment Date/Time Appointment Type Appointme nt Facility Name Jan 28, 2024 09:30 AM AMBULATORY - PSYCHIATRY [facility] Jun 13, 2024 02:30 PM [facility] Jun 19, 2024 02:00 PM [facility] Active, Pending, and Scheduled Orders This section includes a listing of several types of active, pending, and scheduled orders, including clinic medications orders, diagnostic test orders, procedure orders and consult orders; where the start date of the order is 45 days before the date of the Encounter or 45 days after the date of theEncounter. The data comes from all [facility]. Test Date/Time Test Type Test Details Facility Name Dec 08, 2023 12:00 AM Laboratory - Chemi stry Order ALCOHOL, ETHYL URINE PANEL URINE (DRUG) [facility] Dec 08, 2023 12:00 AM Laboratory - Chemi stry Order AMPHETAMINES SCREEN PANEL URINE (DRUG) [facility] Dec 08, 2023 12:00 AM Laboratory - Chemi stry Order FENTANYL SCREEN PANEL URINE (DRUG) [facility] Dec 08, 2023 12:00 AM Laboratory - Chemi stry Order BENZODIAZEPINES SCREEN PANEL URINE (DRUG) [facility] Dec 08, 2023 12:00 AM Laboratory - Chemi stry Order BUPRENORPHINE SCREEN PANEL URINE (DRUG) [facility] Dec 08, 2023 12:00 AM Laboratory - Chemi stry Order CANNABINOIDS SCREEN PANEL URINE (DRUG) [facility] Dec 08, 2023 12:00 AM Laboratory - Chemi stry Order COCAINE SCREEN PANEL URINE (DRUG) [facility] Dec 08, 2023 12:00 AM Laboratory - Chemi stry Order ETG SCREEN (wx) URINE (DRUG) [facility] Dec 08, 2023 12:00 AM Laboratory - Chemi stry Order METHADONE SCREEN URINE [facility] Dec 08, 2023 12:00 AM Laboratory - Chemi stry Order OXYCODONE SCREEN PANEL URINE (DRUG) [facility] Dec 08, 2023 12:00 AM Laboratory - Chemi stry Order OPIATES SCREEN PANEL URINE (DRUG) [facility] Dec 08, 2023 12:00 AM Laboratory - Chemi stry Order BARBITURATES SCREEN PANEL URINE (DRUG) [facility] Social History: Smoking Status (Most current) and Tobacco Use (All prior to encounter date) This section includes the most current, and the historical, smoking and tobacco- related health factors from the [place] facility where the Encounter took place. Current Smoking Status This section includes the most current smoking, or tobacco-related health factor, from the [place] facility where the Encounter took place. Date/Time Current Smoking Status Comment Facil ity Mar 30, 2023 08:30 AM [place]-TOBACCO NEVER USED [facility] Tobacco Use History This section includes a history of the smoking, or tobacco-related health factors, that were collected on or before the date of the Encounter. The data comes from the [facility] where the Encounter took place. Date/Time Smoking Status/Tobacco Use Comment F acility Apr 14, 2022 08:30 AM [facility]-TOBACCO NEVER USED [facility] Encounter Notes: All associated encounter notes This section contains the clinical notes associated to the Encounter. Date/Time Encounter Note(s) Provider Source Dec 24, 2023 12:53 PM SOCIAL WORK NOTE: LOCAL TITLE: SOCIAL WORK NOTE STANDARD TITLE: SOCIAL WORK NOTE DATE OF NOTE: DEC 24, 2023@12:53 ENTRY DATE: DEC 24, 2023@12:53:56 AUTHOR: JUDY HUNTER EXP COSIGNER: MARTA BLAS URGENCY: STATUS: COMPLETED INFORMED CONSENT REVIEWED: At beginning of session reviewed rights and limits of confidentiality, mandatory reporting situations, duty to warn and protect, Wheat Warning, (if treatment team finds patient to be an acute danger to himself or others, that this information could be relayed to a court of law and presented to a venue attendant), and DOD access for active duty service members. Provided Suicide Prevention Hotline number, and other contact numbers as necessary. 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 I also have a lot of issues about my family, especially my mother, that I'd like to get some help on. SESSION FOCUS: Masood reported that his aging mother has been diagnosed with onset of dimentia and her need for care will be increasing. Masood has been disengaged from his mother for several months because of ongoing relationship struggles and the difficult childhood that Jefferson experienced. Masood stated that he intends to reengage with her so that he can support his sister who has been doing all of the caregiving up until now. Jefferson and Railroad Shop Inspector discussed this issue and his plans to renew contact with both mother and father. There is some concern that father will react with hostility. It is also possible that Masood's mother reacts toward him with similar hostility even if she doesn't understand what she's saying or who she's saying it to. Jefferson and Railroad Shop Inspector will work to prepare him for various reactions and outcomes when he reengages his parents. Jefferson asked if he could bring his sister along at the next session. Railroad Shop Inspector informed Masood that she would be welcomed. INTERVENTIONS: Psychotherapeutic Interventions: Active listening, validating, reflecting Psychoeducation reviewed: AWA ASSESSMENT: BRIEF ASSESSMENT OF MENTAL STATUS: 1. Appearance (grooming, attire, apparent age) within normal limits: Yes 2. Thought content was organized and goal directed: Yes 3. Speech was coherent and unimpaired: Yes 4. Affect was appropriate and unremarkable: Yes 5. Demeanor was calm, with no signs of agitation or restlessness: Yes 6. Sleep was largely unimpaired and restful: Yes 7. No evidence of psychosis (hallucinations or delusions): Yes 8. Mood was normal: Yes Other Observations: RISK ASSESSMENT: Denies current suicidal/homicidal ideation PLAN FOR FOLLOW-UP: Bi-weekly sessions This case is supervised by MAX Galicia. Diagnosis, treatment plan, and response to care are reviewed in standard 1-hour, or more, weekly individual supervision meeting. Suicide Screen: C-SSRS Screening Collin-Suicide Severity Rating Scale (C-SSRS Screener) 1. Over the past month, have you wished you were or wished you could go to sleep and not wake up? No 2. Over the past month, have you had any actual thoughts of killing yourself? No 3. Over the past month, have you been thinking about how you might do this? Response not required due to responses to other questions. 4. Over the past month, have you had these thoughts and had some intention of acting on them? Response not required due to responses to other questions. 5. Over the past month, have you started to work out or worked out the details of how to kill yourself? Response not required due to responses to other questions. 6. If yes, at any time in the past month did you intend to carry out this plan? Response not required due to responses to other questions. 7. In your lifetime, have you ever done anything, started to do anything, or prepared to do anything to end your life (for example, collected pills, obtained a gun, gave away valuables, went to the roof but didn't jump)? No 8. If YES, was this within the past 3 months? Response not required due to responses to other questions. Depression Screening: Perform PHQ-2 A PHQ-2 screen was performed. The score was 0 which is a negative screen for depression. Over the past two weeks, how often have you been bothered by the following problems? 1. Little interest or pleasure in doing things Not at all 2. Feeling down, depressed, or hopeless Not at all /carolynn/ JUDY HUNTER TICKET CLERK Signed: 12/24/2023 15:30 /carolynn/ MAX GALICIA Permit Review Assistant Mental Health Cosigned: 12/24/2023 15:48 JUDY HUNTER
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
--- OUTSIDE RECORDS SUMMARY | 2024-12-14 06:42 | XMS_ITS | Encounter Summary ---
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 ORGANIZAT ION [facility] FIRE DEPT Apr 03, 2024 [id number] Nathalie LY PATIENT [employer] ([id number]) PRESCRIPT ION [facility] Apr 03, 2018 [id number] Elza LY SPOUSE Selected Encounter This section includes the information on record at [place] for the Encounter. Date/Time Encounter Type Encounter Description Reason Provider Source Jun 13, 2024 02:30 PM OFFICE O/P EST MOD 30 MIN PRIMARY CARE/MEDICINE ICD-10-CM I10 Essential (primary) hypertension IMELDA LAWRENCE Encounter Template Text not used by [facility] Assessments - Encounter Diagnoses This section includes the primary and secondary diagnoses documented for the Encounter. Date/Time Primary/Secondary Diagnosis Diagnosis Name Provider Source Jun 13, 2024 03:37 PM PRIMARY Essential (primary) hypertension IMELDA LAWRENCE MARIAM KATIE Jun 13, 2024 03:37 PM SECONDARY Obesity, unspecified IMELDA LAWRENCE MARIAM WILSON Plan of Treatment: Future Appointments (+ 6 months) and Future Tests (+/- 45 days) The Plan of Treatment section includes future care activities for the patient from all [place] treatmentfacilities. This section includes future appointments and future orders which are active, pending or scheduled. Future Appointments This section includes appointments that were scheduled to occur 6 months from the date of the Encounter, up to a maximum of 20 appointments. The data comes from all [place] treatment facilities. Appointment Date/Time Appointment Type Appointme nt Facility Name Jun 19, 2024 02:00 PM AMBULATORY - [facility]IATRY [facility] [place] [facility] Jul 18, 2024 07:00 PM AMBULATORY PSYCHIATRY [facility] [place] [facility] Aug 17, 2024 07:30 PM AMBULATORY - PS[facility]CHIATRY [facility] [place] [facility] Aug 25, 2024 10:00 AM AMBULATORY - PS[facility]CHIATRY [facility] [place] [facility] Sep 22, 2024 10:00 AM AMBULATORY - PS[facility]CHIATRY [facility] [place] [facility] Oct 25, 2024 03:00 PM AMBULATORY - PS[facility]CHIATRY [facility] [place] [facility] Nov 01, 2024 03:00 PM AMBULATORY - PS[facility]CHIATRY [facility] [place] [facility] Nov 08, 2024 03:00 PM AMBULATORY - PS[facility]CHIATRY [facility] [place] [facility] Nov 16, 2024 07:00 PM AMBULATORY - PS[facility]CHIATRY [facility] [place] [facility] Social History: Smoking Status (Most current) and Tobacco Use (All prior to encounter date) This section includes the most current, and the historical, smoking and tobacco- related health factors from the [facility] facility where the Encounter took place. Current Smoking Status This section includes the most current smoking, or tobacco-related health factor, from the [place] facility where the Encounter took place. Date/Time Current Smoking Status Parminder burton Jun 13, 2024 02:30 PM [place]-TOBACCO NEVER USED [place] Tobacco Use History This section includes a history of the smoking, or tobacco-related health factors, that were collected on or before the date of the Encounter. The data comes from the [place] facility where the Encounter took place. Date/Time Smoking Status/Tobacco Use Comment F acility Mar 30, 2023 08:30 AM AL-TOBACCO NEVER USED [place] Apr 14, 2022 08:30 AM AL-TOBACCO NEVER USED [place] Encounter Notes: All associated encounter notes This section contains the clinical notes associated to the Encounter. Date/Time Encounter Note(s) Provider Source Jun 13, 2024 02:42 PM PREVENTIVE MEDICIN E NURSING NOTE: LOCAL TITLE: CLINICAL REMINDERS/NURSING STANDARD TITLE: PREVENTIVE MEDICINE NURSING NOTE DATE OF NOTE: JUN 13, 2024@14:42 ENTRY DATE: JUN 13, 2024@14:42:57 AUTHOR: MARYCHUY MCCALLUM EXP COSIGNER: URGENCY: STATUS: COMPLETED Advance Directive Screen MH AD: The patient has an Advance Directive on file at another [facility] that may require updating with the assistance of Social Work Service. A consult to Social Work Service has been entered. (See Orders) The patient received education about Advance Directives and written notification of his/her rights. Patient does not have a completed advance directive on file at any facility, [place] or outside. S/he is not interested in completing one at this time. The patient received education about Advance Directives and written notification of his/her rights. BMI>30/>24.99 High Risk: Patient declines to discuss weight management. Patient declined weight discussion. Discussed revisiting at a future visit. Hepatitis B Serology/Immunization: The patient declines to receive the recommended dose of Hepatitis B vaccine. Immunization: HEP B, UNSPECIFIED FORMULATION Refusal Reason: PATIENT DECISION Patient refuses all immunization(s) in the HepB group Date Documented: 06/13/24 14:43 Tobacco Use Screening: The patient has never used tobacco. Influenza Immunization: Deferral / Refusal The patient declines to receive the recommended dose of seasonal influenza vaccine. Immunization: INFLUENZA, UNSPECIFIED FORMULATION Refusal Reason: PATIENT DECISION Patient refuses all immunization(s) in the FLU group Date Documented: 06/13/24 14:44 Alcohol Use Screen (AUDIT-C): Alcohol Screen: SCREEN FOR ALCOHOL (AUDIT-C) An alcohol screening test (AUDIT-C) was negative (score=1). 1. How often did you have a drink containing alcohol in the past year? Consider a drink to be a 12 ounce can or bottle of regular beer, 8 ounces of malt liquor, a 5 ounce glass of table wine, or a 1.5 ounce shot of liquor (like scotch, gin, or vodka). Monthly or less 2. How many drinks containing alcohol did you have on a typical day when you were drinking in the past year? One or two drinks 3. How often did you have six or more drinks on one occasion in the past year? Never COVID-19 Immunization: Referred to another clinic for immunization (desired vaccine unavailable at this location) Tdap Immunization: The patient declines to receive the recommended dose of Tdap vaccine. Immunization: TDAP Refusal Reason: PATIENT DECISION Patient refuses all immunization(s) in the TDAP group Date Documented: 06/13/24 14:44 Herpes Zoster (Shingles) Vaccine: The patient declines to receive the recommended dose of zoster (shingles) vaccine. Immunization: ZOSTER RECOMBINANT Refusal Reason: PATIENT DECISION Patient refuses all immunization(s) in the ZOSTER group Date Documented: 06/13/24 14:45 Sexual Orientation: The patient thinks of their sexual orientation as: Straight or Heterosexual RHS Screen: RHS Screen Session Format: Face to Face Environmental Check Upon inquiry, the individual reports that the environment is safe to proceed. Informed Consent to Screen and Document The individual consents to proceed with screening. The individual consents to documentation of responses. PRIMARY SCREEN: In the past 12 months, how often did a current or former intimate partner (e.g., boyfriend, girlfriend, , , sexual partner): 1. Scream or curse at you Never 2. Insult or talk down to you Never 3. Threaten you with harm Never 4. Physically hurt you Never 5. Force or pressure you to have sexual contact against your will, or when you were unable to say no Never ?? The HITS tool (items 1-4 above) is [place] copyright protected by Cleveland Dixon MD, and the user has full rights to use it throughout the [place] system. PRIMARY SCREEN RESULT: The Primary Screen is NEGATIVE. The individual answered never to all forms of IPV above (i.e., answered never to all 5 items) The individual accepts education and/or resources: No EDUCATION: The individual indicated readiness to learn. Education offered during this session as noted above. The individual indicated understanding by asking relevant questions and making appropriate comments. No barriers to learning were observed or identified. /carolynn/ MARYCHUY MCCALLUM LPN PACT 10 Signed: 06/13/2024 14:46 MARYCHUY MCCALLUMFIELD Jun 13, 2024 06:25 AM PHYSICIAN NOTE: LOCAL TITLE: MD NOTE STANDARD TITLE: PHYSICIAN NOTE DATE OF NOTE: JUN 13, 2024@06:25 ENTRY DATE: JUN 13, 2024@06:25:39 AUTHOR: MIELDA LAWRENCE EXP COSIGNER: URGENCY: STATUS: COMPLETED HISTORY OF PRESENT ILLNESS: RUBIA LY, is a 53 yo MALE patient, who presents at the [facility] for his annual visit. He maintains a nonVA PCP: Dr Michele Alexander. 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 Active problems - Computerized Problem List is the source for the followin. Posttraumatic stress disorder 2. Erectile dysfunction 3. OA - Osteoarthritis of knee 4. Hypertension 5. Benign prostatic hyperplasia 6. Sleep apnea 7. Attention deficit hyperactivity disorder Active and Recently Outpatient Medications (including Supplies): Active Outpatient Medications Status ======= 1) LISDEXAMFETAMINE DIMESYLATE 50MG CAP TAKE ONE CAPSULE ACTIVE BY MOUTH ONCE DAILY FOR ADHD NEXT FILL 06/20/24 Active Non-VA Medications Status ======= 1) Non-VA LISINOPRIL 40MG TAB 40MG BY MOUTH ONCE DAILY ACTIVE 2) Non-VA METOPROLOL SUCCINATE 100MG SA TAB 100MG BY ACTIVE MOUTH ONCE DAILY 3) Non-VA NAPROXEN 500MG TAB 500MG BY MOUTH ONCE DAILY ACTIVE NEEDED 4) Non-VA SILDENAFIL CITRATE 100MG TAB 100MG BY MOUTH ACTIVE NEEDED 5) Non-VA TIRZEPATIDE WL 15MG/0.5ML SOLN INJ PEN 15MG ACTIVE SUBCUTANEOUSLY WEEKLY 6 Total Medications ALLERGIES: ========= Patient has answered NKA HISTORY: PERIOD OF SERVICE - [facility] FROM Mar TO Apr COMBAT SERVICE INDICATED: Yes VITAL SIGNS: Blood Pressure 148/92 (06/13/2024 14:42) Pulse 57 (06/13/2024 14:42) Respiration 18 (06/13/2024 14:42) Pulse Oximetry 98% (06/13/2024 14:42) Temperature 98.1 F [36.7 C] (06/13/2024 14:42) Pain 0 (06/13/2024 14:42) Height 70 in [177.8 cm] (06/13/2024 14:42) Weight 285.6 lb [129.55 kg] (06/13/2024 14:42) BMI BMI: 41.1 REVIEW OF SYSTEMS: CARDIOVASCULAR: No chest pain RESPIRATORY: No SOB, no wheezing GASTROINTESTINAL: No abd pain, no N/V/D MUSCULOSKELETAL: No joint pain, no joint swelling PSYCHIATRIC: No anxiety, no trouble sleeping, no depression NEUROLOGIC: No H/A, no numbness, no weakness, no tingling EXAMINATION: GENERAL: WD/WN , pleasant & in NAD HEENT: Moist mucosa NECK: Supple HEART: RRR, S1-S2 LUNGS: CTA B/L ABDOMEN: Soft, NT/ND, obese EXTREMITIES: FROM x 4, gait normal NEUROLOGIC: AAO x3, no focal findings PSYCHIATRIC: Good eye contact, affect normal ASSESSMENT/PLAN: 1. Hypertension: on metoprolol succinate 100mg/day and lisinopril 40mg/day 2. ADHD: on vyvanse 50mg/day, med can cause grinding of teeth so he is prescribed clonazepam 0.5mg at night prn 3. OA B/L Knees: on naproxen 500mg/day prn, had knee replacements by Dr Beltran in [place], right knee on 05/22/22 and left knee on 07/30/22 4. Erectile Dysfunction: on viagra 100mg/day 5. Colonoscopy Screenin08/25/21 - normal - repeat 10 yrs 6. 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 Obesity: BMI ~41, started Zepbound 2 mths ago, has lost 23 lbs, goal is to get to 200lb total weight (currently at 286 lbs) FOLLOW UP: 1 year - Annual - bring PCP labs ========= UPCOMING APPOINTMENTS: 06/19/2024 14:00 CWM/SO/VVC/MHC/PSYTR 1 No barriers; Patient understands and agrees to current treatment plan. If pt has any questions, concerns, or changes in current health status he/she will call or come in to the VA. Avg Risk Colorectal Cancer Screen: AVERAGE RISK colorectal cancer screening is due based on information available to this clinical reminder Patient has arranged or is choosing to arrange this care independent of and without assistance from this VA. Home Telehealth (CCHT) Referral: Patient declines participation in CCHT Program at this time. Hepatitis C Testing: Patient declines HCV lab test. Medication Reconciliation: Outpatient: Has the patient been taking medications as documented in the EMLR? YES: The patient has been taking medications as documented in the EMLR. Essential Medication List for Review used to complete this medication reconciliation. INCLUDED IN THIS LIST: Alphabetical list of active outpatient prescriptions dispensed from this VA (local) and dispensed from another VA or DoD facility (remote) as well as inpatient orders (local, pending and active), local clinic medications, locally documented non-VA medications, and local prescriptions that have or been discontinued in the past 90 days. - All changes in medications, including all non-VA/Herbal/OTC medications were entered into CPRS. - If there were any medications the patient should no longer take, they were discontinued. - The patient/caregiver was instructed to update this list, discard old lists, and take this list to the next appointment, whether with a VA or non-VA provider. JLV Link Data on this list may not be complete. Please check JLV. Allergies/ADRs (Tool #5) FACILITY ALLERGY/ADR -------- No Remote Allergy/ADR Data available for this patient [facility] [place] [facility] No Known Allergies Med Recon NoGlossary (Tool #1) INCLUDED IN THIS LIST: Alphabetical list of active outpatient prescriptions dispensed from this [place] (local) and dispensed from another VA or DoD facility (remote) as well as inpatient orders (local pending and active), local clinic medications, locally documented non-VA medications, and local prescriptions that have or been discontinued in the past 90 days. Non-VA Meds Last Documented On: Jun 13, 2024 NOTE The display of VA prescriptions dispensed from another VA or DoD facility (remote) is limited to active outpatient prescription entries matched to National Drug File at the originating site and may not include some items such as investigational drugs, compounds, etc. NOT INCLUDED IN THIS LIST: Medications self-entered by the patient into personal health records (i.e. [place] book) are NOT included in this list. Non-VA medications documented outside this [place], remote inpatient orders (regardless of status) and remote clinic medications are NOT included in this list. The patient and provider must always discuss medications the patient is taking, regardless of where the medication was dispensed or obtained. ------ OUTPT LISDEXAMFETAMINE DIMESYLATE 50MG CAP (Status = Discontinued) TAKE ONE CAPSULE BY MOUTH ONCE DAILY FOR ADHD NEXT FILL 04/10/24 Rx# [id number] Last Released: 03/13/24 Qty/Days Supply: Rx Expiration Date: 04/12/24 Refills Remainin Indication: FOR ADHD OUTPT LISDEXAMFETAMINE DIMESYLATE 50MG CAP (Status = Discontinued) TAKE ONE CAPSULE BY MOUTH ONCE DAILY FOR ADHD NEXT FILL 06/09/24 Rx# [id number] Last Released: 04/13/24 Qty/Days Supply: Rx Expiration Date: 05/12/24 Refills Remainin Indication: FOR ADHD OUTPT LISDEXAMFETAMINE DIMESYLATE 50MG CAP (Status = ) TAKE ONE CAPSULE BY MOUTH ONCE DAILY FOR ADHD NEXT FILL 06/09/24 Rx# [id number] Last Released: 05/12/24 Qty/Days Supply: Rx Expiration Date: 06/09/24 Refills Remainin Indication: FOR ADHD OUTPT LISDEXAMFETAMINE DIMESYLATE 50MG CAP (Status = Active) TAKE ONE CAPSULE BY MOUTH ONCE DAILY FOR ADHD NEXT FILL 06/20/24 Rx# [id number] Last Released: 06/12/24 Qty/Days Supply: 04/09 Rx Expiration Date: 07/12/24 Refills Remainin Indication: FOR ADHD Non-VA LISINOPRIL 40MG TAB TAKE ONE TABLET BY MOUTH ONCE DAILY Medication prescribed by Non-VA provider. Indication: FOR HIGH BLOOD PRESSURE Non-VA METOPROLOL SUCCINATE 100MG SA TAB TAKE ONE TABLET BY MOUTH ONCE DAILY Patient wants to buy from Non-VA pharmacy. Medication prescribed by Non-VA provider. Non-VA NAPROXEN 500MG TAB TAKE ONE TABLET BY MOUTH ONCE DAILY NEEDED Medication prescribed by Non-VA provider. Non-VA SILDENAFIL CITRATE 100MG TAB TAKE ONE TABLET BY MOUTH NEEDED Patient wants to buy from Non-VA pharmacy. Medication prescribed by Non-VA provider. Non-VA TIRZEPATIDE WL 15MG/0.5ML SOLN INJ PEN INJECT 15MG SUBCUTANEOUSLY WEEKLY Patient wants to buy from Non-VA pharmacy. Medication prescribed by Non-VA provider. ------ SUPPLIES ------ HTN Assess for Elevated BP>=140/90: The patient's blood pressure is usually adequately controlled. No medication changes are indicated at this time. /carolynn/ IMELDA LAWRENCE MD Primary Care Physician Signed: 06/13/2024 15:38 IMELDA LAWRENCE [place]
--- OUTSIDE RECORDS SUMMARY | 2024-12-14 06:42 | XMS_ITS | Encounter Summary ---
Author Name [facility] of [facility] ([place]) Organization [facility] Address [address] [place] [address] Care Team Providers Care Dehorner Name Role Phone IMELDA LAWRENCE Primary Care [...] Archibald's Name Patient's Relationship to Policy Archibald [facility] CE ORGANIZAT ION [facility] DEPT Apr 03, 2024 [id number] [phone] Nathalie LY PATIENT [facility] SCRIPTS ([id number]) PRESCRIPT [facility] Apr 03, 2018 [id number] Elza LY SPOUSE Selected Encounter This section includes the information on record at [place] for the Encounter. Date/Time Encounter Type Encounter Description Reason Pro vider Source Nov 08, 2024 03:00 PM Outpatient Encounter [facility] Encounter Template Text not used by [place] Plan of Treatment: Future Appointments (+ 6 months) and Future Tests (+/- 45 days) The Plan of Treatment section includes future care activities for the patient from all VA treatmentfacilities. This section includes future appointments and future orders which are active, pending or scheduled. Future Appointments This section includes appointments that were scheduled to occur 6 months from the date of the Encounter, up to a maximum of 20 appointments. The data comes from all [facility] facilities. Appointment Date/Time Appointment Type Appointme nt Facility Name Nov 16, 2024 07:00 PM AMBULATORY PSYCHIATRY [facility] Dec 13, 2024 03:00 PM [facility] Dec 20, 2024 03:00 PM [facility] Dec 27, 2024 03:00 PM [facility] Jan 03, 2025 03:00 PM AMBULATORY PSYCHIATRY [facility] Social History: Smoking Status (Most current) and Tobacco Use (All prior to encounter date) This section includes the most current, and the historical, smoking and tobacco- related health factors from the [place] facility where the Encounter took place. Current Smoking Status This section includes the most current smoking, or tobacco-related health factor, from the [place] facility where the Encounter took place. Date/Time Current Smoking Status Comment Facil ity Jun 13[facility] 2024 02[facility] Tobacco Use History This section includes a history of the smoking, or tobacco-related health factors, that were collected on or before the date of the Encounter. The data comes from the [place] facility where the Encounter took place. Date/Time Smoking Status/Tobacco Use Comment F acility Mar 30, 2023 08:30 AM [place]-TOBACCO NEVER USED [facility] Apr 14, 2022 08:30 [facility] Encounter Notes: All associated encounter notes This section contains the clinical notes associated to the Encounter. Date/Time Encounter Note(s) Provider Source Nov 08, 2024 03:27 PM CLERICAL NOTE: LOCAL TITLE: APPOINTMENT NO SHOW STANDARD TITLE: CLERICAL NOTE DATE OF NOTE: NOV 08, 2024@15:27 ENTRY DATE: NOV 08, 2024@15:27:34 AUTHOR: JUDY HUNTER COSIGNER: MARTA BLAS URGENCY: STATUS: COMPLETED Patient Name: RUBIA LY Patient SSN: [id number] Date and time of Appointment No show : 11/08/24 15:00 PATIENT PHONE - PHONE NUMBER [CELLULAR] - Patient's medical record was reviewed. Follow-up actions were determined and initiated: Please check/complete as applies: [X]Telephoned Directly [ ]Re-scheduled for next available appt [X]Sent a N0-show letter ( must call for appointment) [ ]Other (Emergent/Overbook, etc.): Additional Comments: None Future Clinic Visits 11/16/2024 19:00 CWM/SO/VVC/MHC/PSYTR 1 PM 12/13/2024 15:00 [facility]/SO/MHC/[facility] 12/20/2024 15:00 [facility]/SO/MHC/[facility] 12/27/2024 15:00 [facility]/SO/MHC/[facility] 01/03/2025 15:00 CWM/SO/MHC/[facility] 06/12/2025 15:30 CWM/SO/PACT 10 /es/ JUDY HUNTER [employer] SURVEYOR Signed: 11/08/2024 15:27 /es/ MAX GALICIA [facility] Cosigned: 11/08/2024 15:56 JUDY HUNTER
--- OUTSIDE RECORDS SUMMARY | 2024-12-14 06:43 | XMS_ITS | Encounter Summary ---
Author Name Department of Vetera Affairs ([place]) Organization [facility] [place] Address [address] [place] [address] Care Team Providers Care Armament Mechanic Name Role Phone IMELDA LAWRENCE Primary [...] Name Patient's Relationship to Policy Archibald [facility] ORGANIZAT ION [facility] FIRE DEPT Apr 03, 2024 [id number] [phone] Nathalie LY PATIENT EXPRESS SCRIPTS ([id number]) PRESCRIPT [facility] Apr 03, 2018 [id number] [id number] Elza LY SPOUSE Selected Encounter This section includes the information on record at [place] for the Encounter. Date/Time Encounter Type Encounter Description Reason Provider Source Jul 18, 2024 07:00 PM OFFICE O/P EST MOD 30 MIN [facility] - IND ICD-10-CM F90.9 Attention-deficit hyperactivity disorder, unspecified type KAREN LADD Encounter Template Text not used by VA Assessments - Encounter Diagnoses This section includes the primary and secondary diagnoses documented for the Encounter. Date/Time Primary/Secondary Diagnosis Diagnosis Name Provider Source Jul 18, 2024 07:07 PM PRIMARY Attention-deficit hyperactivity disorder, unspecified type JOAO LADD Jul 18, 2024 07:07 PM SECONDARY Post-traumatic stress disorder, unspecified JOAO LADD Plan of Treatment: Future Appointments (+ 6 months) and Future Tests (+/- 45 days) The Plan of Treatment section includes future care activities for the patient from all [place] treatmentfacilities. This section includes future appointments and future orders which are active, pending or scheduled. Future Appointments This section includes appointments that were scheduled to occur 6 months from the date of the Encounter, up to a maximum of 20 appointments. The data comes from all [place] treatment facilities. Appointment Date/Time Appointment Type Appointme nt Facility Name Aug 17, 2024 07:30 PM AMBULATORY - [facility] Aug 25, 2024 10:00 AM AMBULATORY - PS[facility]IATRY [facility] Sep 22, 2024 10:00 AM AMBULATORY - PS[facility]RY [facility] Oct 25, 2024 03:00 PM AMBULATORY - PS[facility]IATRY [facility] Nov 01, 2024 03:00 PM AMBULATORY - PS[facility]RY [facility] Nov 08, 2024 03:00 PM AMBULATORY - PS[facility]IATRY [facility] Nov 16, 2024 07:00 PM AMBULATORY - PS[facility]RY [facility] Dec 13, 2024 03:00 PM AMBULATORY - [facility]RY [facility] Dec 20, 2024 03:00 PM AMBULATORY - [facility] Dec 27, 2024 03:00 PM AMBULATORY - [facility]RY [facility] Jan 03, 2025 03:00 PM AMBULATORY - PS[facility]IATRY [facility] Social History: Smoking Status (Most current) and Tobacco Use (All prior to encounter date) This section includes the most current, and the historical, smoking and tobacco- related health factors from the VA facility where the Encounter took place. Current Smoking Status This section includes the most current smoking, or tobacco-related health factor, from the [place] facility where the Encounter took place. Date/Time Current Smoking Status Comment Cayla burton Jun 13, 2024 02:30 PM [facility]-TOBACCO NEVER USED [place] Tobacco Use History This section includes a history of the smoking, or tobacco-related health factors, that were collected on or before the date of the Encounter. The data comes from the [place] facility where the Encounter took place. Date/Time Smoking Status/Tobacco Use Comment F acility Mar 30, 2023 08:30 AM VA-TOBACCO NEVER USED [place] Apr 14, 2022 08:30 AM VA-TOBACCO NEVER USED [facility] Encounter Notes: All associated encounter notes This section contains the clinical notes associated to the Encounter. Date/Time Encounter Note(s) Provider Source Jul 18, 2024 07:00 PM TELEHEALTH NOTE: LOCAL TITLE: ID VIDEO CONNECT PSYCHIATRIST NOTE STANDARD TITLE: TELEHEALTH NOTE DATE OF NOTE: JUL 18, 2024@19:00 ENTRY DATE: JUL 18, 2024@19:00:26 AUTHOR: JOAO LADD EXP COSIGNER: URGENCY: STATUS: COMPLETED ID Video Connect (VVC) Standard Documentation VVC Clinician Resources Only: E911 (Emergency Call Relay Center): [phone] National Veterans Crisis Line - 988 then press #1. [facility] Suicide Coordinator [phone], Ext. [phone]; Back-up Ext. [phone] [place] Police, Chao RAMIREZ [phone] Introduction: Visit is being conducted by ID [employer]. identified with 2 identifiers: [X] Full Name [X] Date of [ ] VA ID Card Emergency Plan: [place] confirmed and/or provided the following information in case of emergency or technology failure. PATIENT PHONE - PHONE NUMBER [CELLULAR] - Is patient phone number correct, if not, enter below: 's phone number: RUBIA LY [address], [place], [address] 's present location and address for appointment: same as above 's emergency contact name and phone number: unchanged reported that location is private and safe: Yes Informed Consent: [place] informed of the risks and benefits of Telehealth video care. has the right to refuse video services. If refuses video visit, a [id number] visit will be scheduled. verbalized consent for this video visit: Yes provided consent for any other persons present for visit: N/A If yes, who and relationship to patient: Secure visit: Visit was locked for security and privacy:Yes CHART REVIEW: [place] was previously treated by Cassandra Alston APRN, first seen by her Sep 2022, noting then: DIAGNOSIS Attention deficit hyperactivity disorder - Childhood onset but never diagnosed Bereavement Sleep Apnea PRESENTING PROBLEM - Currently prescribed Vyvanse 50mg . Provider retired. C/o distractibility. Difficultly staying on task , completing assignments Delayed or complicated bereavement brother's OD. [place] diagnosed with adhd in 2013 after failing Lt exam 2 times. He had 4 hour psychological testing . Diagnosed with ADHD with hyperactivity's intake for additional details. Meets > 6 of criteria. Meet criteria for hyperactivity Hyper focused on one thing but will not accomplish other more important. Jumps from tasks to task. Difficulty reading and concentrating, hyperactivity. Always restless, difficult to sit through meetings . Has put energy into managing symptoms w/o medications last 2 months. is on light duty. has organizational difficulties, difficulty with sustained concentration when ready. On Vyvanse is effective for his adhd 2019 Brother of an OD . Mood most days ever days . denies significant depression , anxiety . Sleep - No longer having NM . Sleep -irregular due to rotating shifts. Uses CPAC Appetite - 2 meals a day. 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 difficulties in school . He failed on some of his [employer] school . Which negatively affected his job and rank. Completed HS but did not do well. Recently failed Captains exam last 2 months off the Vyvanse. SOCIAL HISTORY Substance use - occasional alcohol once a month 2 to 3 beers. See intake for additional details 2021 currently lives in his own home and am . I have a 20 you in college and 26 yo who lives on his own. Studying for [employer] . Failed in the past . Has exam . Wants to get back on Vyvanse. Is still home with marital conflict. He is the oldest brother. His younger brother several years ago heroin overdose. He has 1 younger sister. Difficult relationship with mother emotional abuse noted denies physical sexual abuse. 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 [place] is the oldest , his younger brother February 05, 2020.Oldest is on his home. Youngest in college MEDICATION MANAGEMENT [place] currently prescribed Vyvanse 50mg. Last provider retired. Wants to continue with current medications . [place] has been MEDICATION TRIALS - Concerti ,Vyvanse. tried one other stimulant he can not recall the name . Unable to tolerate . Reports Vyvanse effective since 2013. Denies adverse effects . 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 FORMULATION 51-year-old male. Crystal . Currently employed full-time [employer]. 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 He has a diagnosis of ADHD from 2013 which was confirmed with psychological testing. He failed the [employer] exam twice which precipitated his seeking psychological testing. He failed the captain's test once. He can retake it December 2022. stable on Vyvanse 50 mg daily. Also takes clonazepam 0.5 mg 1 tablet at bedtime. Originally ordered for teeth grinding. [place] takes the clonazepam infrequently. Now takes for panic attacks. No substance abuse or safety concerns. 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 See intake for details. Further testing for posttraumatic stress disorder indicated in the near future. Will need to wait for Vyvanse to be approved. Will call when ready for pickup. No safety concerns. No previous hospitalizations, suicide attempts no substance abuse concerns. ------ Last seen by Ms Alston January 2024, when she noted: DIAGNOSIS + Posttraumatic stress disorder Attention deficit hyperactivity disorder - Childhood onset but never diagnosed Bereavement Sleep Apnea Record reviewed Mood - Energy and motivation Sleep - Uses CPAP Appetite - He denies any suicidal homicidal ideation plan or intent. No previous attempts He denies any auditory visual hallucinations. Cognition intact. 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 Copeland. endorses symptoms consistent with attention deficit disorder. Distractibility. Difficultly staying on task , completing assignments Vyvanse 50mg daily STIMULANT EDUCATION Stimulant agreement reviewed. No duplicate prescriptions in [place]. Posttraumatic stress disorder May benefit from SSRI medications. SSRI recommended in the past to reduce reliance on Clonazepam. [place] was give clonazepam in past from previous provider for teeth grinding as a possible side effect of Vyvanse. ?? did not experience Teeth grinding. He stopped the clonazepam w/o difficultly Attention deficit hyperactivity disorder Lisdexamfetamine 50mg daily. with benefit. Denies s/e's. Plan - continue Vyvanse 50 mg take 1 capsule daily. Continue clonazepam 0.5 mg take 1 capsule daily. Obtain UDS . MEDICAL PROBLEMS, per PCP Jun 2024: ASSESSMENT/PLAN: 1. Hypertension: on metoprolol succinate 100mg/day and lisinopril 40mg/day 2. ADHD: on vyvanse 50mg/day, med can cause grinding of teeth so he is prescribed clonazepam 0.5mg at night prn 3. OA B/L Knees: on naproxen 500mg/day prn, had knee replacements by Dr Beltran in [place], right knee on 05/22/22 and left knee on 07/30/22 4. Erectile Dysfunction: on viagra 100mg/day 5. Colonoscopy Screenin08/25/21 - normal - repeat 10 yrs 6. 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 Obesity: BMI ~41, started Zepbound 2 mths ago, has lost 23 lbs, goal is to get to 200lb total weight (currently at 286 lbs) PRESENTATION AT TIME OF INITIAL VISIT WITH MYSELF: [place] reports he previously saw Dr. Zelaya he just disappeared from [employer] from 2013 to Fall 2021. He states I probably had ADHD since I was in [employer], 7th or 8th grade, all the sudden I had a hard time, mainly in math, I didn't get it, it didn't make sense to me. I struggled learning another language, science a little bit. I was smart enough to get through school, then I enlisted in the [employer]. I didn't have a great grades. I passed exams, although I had to study harder. Then I started failing exams. Part was staying focused, not being able to recall the information, I couldn't recall it. It was attention when I was studying for promotion without med I get bored, I get distracted by something else, it could be anything. I can't stay focused on it. I used to love to read as a little kid . After starting Vyvanse, passed next exam and got promoted, and on Captain's exam passed again (now #1 on Captain's list) a complete 360 . tells him he doesn't get hyperfocused on things like he used to (doing unplanned tasks), not just going from task to task but able to complete tasks he plans. Able to focus on the classroom now. INITIAL ASSESSMENT/ DIAGNOSIS AND RECOMMENDATIONS: [place] presents with past dx and successful treatment for ADHD combined type; his goal is eventually to come off meds. Given current BP, I suggested we try decreasing dose to 40mg Vyvanse daily, which he agrees to, and will try to check BP before next visit. PRESENTING SYMPTOMS AND CONDITION ON TODAY'S VISIT: reports its fine, doesn't feel any different. Works just as well . Saw PCP recently as was on weight loss meds. States BP was good . CURRENT PSYCH meds: Vyvanse 40mg daily ADVERSE EFFECTS: none reported REVIEW OF SYSTEMS MENTAL HEALTH: SLEEP: fine at home (interrupted at work), on CPAP MOOD: denies history of depression PTSD symptoms: previously saw Lambert Romano, denies symptoms I did for a little bit after my brother (OD) every person I saw in 20 years I saw his face on them. It was short-lived ANXIETY: denied ANGER/IRRITABILITY/AGGRESSION: Denies SUBSTANCE USE: Alcohol: 2-3 beers a couple of times per month; rarely more than 6 Illegal/non-prescribed drugs: occasional cannabis TOBACCO: denies/ never BREANNE/HYPOMANIA: None evident PSYCHOTIC FEATURES: None evident Suicidal Thoughts/Intent/plan: denied, no history of attempts Social Status/ Stressors: no stressors VS: 06/13/2024 T 98.1 P 57 BP 150/85 then 148/92 Ht 70 WT 285.6 BMI 41 (typically 140/90) MED REC: now on Zepbound for weight loss, down 32 lbs, now 277 (from 309 in April) MENTAL STATUS EXAMINATION - Appearance and behavior: Appears stated age, appropriately groomed and dressed, pleasant and cooperative - Speech and language: without impairment of rate, rhythm, inflection, volume, or fluency, without latency - Mood: as noted above - Affect: pleasant and calm without lability or agitation, full range - Thought Process: Linear, logical; no loosening of associations or FOI - Thought Content: without delusions (paranoia, thought broadcasting, thought withdrawal, thought insertion, ideas of reference) - Perceptions: Denies auditory and visual hallucinations - IMPULSES/HARM: - Wishes to be ? no - Thoughts/plan/intention of killing self? no - Homicidal ideation, plan, intent, actions: denied - Cognition: Time: grossly intact - Insight: limited - Judgment: no impairment evident NARRATIVE SUMMARY OF CURRENT CONDITION AND OVERALL PROGRESS TOWARD TREATMENT GOALS: is doing well despite dose decrease in Vyvanse. He reports recent BP was good but unable to recall numbers. Will continue current dose, but asked to get me updated BPs at next visit. i. Severity of Illness: ()none (x )mild ( )moderately ill ()severely ill ()very severely ill ii. Global Improvement: ()very much (x)much ( )min ( )none ()min worse ()much worse ()very much worse iii. : RISK ASSESSEMENT: currently (x) no evidence of acute risk, no increase in risk factors () elevated based on: () acute risk noted but agrees to Safety Plan: () acute risk noted, emergency plan implemented INTERVENTION: -THERAPY: at least 16 minutes spend in individual counseling discussing psychological issues, coping strategies, current stressors -SOMATIC: reviewed and discussed medication options: risks, side effects alternatives understood and accepted; answered patient questions PLAN OF CARE/ RECOMMENDATIONS: 1. Recommended and discussed the following medications changes: as noted above 2. Tests or specialist referrals recommended, or old records desired, if any: none 3. Medical Necessity/ Psychiatric treatment goals for future visits: ( x) Sustain improvement ( x) Gain improvement toward remission ( x) Prevent decline in functioning ( x) Prevent hospitalization 4. Considered referral to psychotherapy program for any counseling needs: n/a 5. Considered referral to inpatient/IOP care: n/a 6. Considered referral nutrition program for any lifestyle/dietary needs: n/a 7. Follow-up plans; patient is scheduled for a follow-up appointment with myself in: 4 weeks, sooner if needed Additional Follow-Up instructions: 1. Reinforced: If urgent treatment is needed, call [phone] or go to the nearest Emergency Room 2. To schedule or change an appointment, inquire about medication refills, etc: call office number during normal office hours Diagnoses: Attention deficit hyperactivity disorder (SCT [id number]) - Attention-deficit hyperactivity disorder, unspecified type (ICD-10-CM F90.9) (Primary) Posttraumatic stress disorder (SCT [id number]) - Post-traumatic stress disorder, unspecified (ICD-10-CM F43.10) /carolynn/ JOAO LADD M.D. Signed: 07/18/2024 19:09 JOAO LADD
--- OUTSIDE RECORDS SUMMARY | 2024-12-14 06:43 | XMS_ITS | Encounter Summary ---
Author Name [facility] [place] Address [address] [place] [address] Care Team Providers Care Fleet Assistant Name Role Phone IMELDA LAWRENCE Primary Care [...] Name Patient's Relationship to Policy Archibald BCBS [facility] ORGANIZAT ION [facility] FIRE DEPT Apr 03, 2024 [id number] [phone] Nathalie LY PATIENT [employer] ([id number]) PRESCRIPT ION [facility] Apr 03, 2018 [id number] Elza LY SPOUSE Selected Encounter This section includes the information on record at [place] for the Encounter. Date/Time Encounter Type Encounter Description Reason Provider Source Jan 28, 2024 09:30 AM OFFICE O/P EST MOD 30 MIN [facility] - IND ICD-10-CM F90.9 Attention-deficit hyperactivity disorder, unspecified type MIGUEL CORTÉS Encounter Template Text not used by [facility] Assessments - Encounter Diagnoses This section includes the primary and secondary diagnoses documented for the Encounter. Date/Time Primary/Secondary Diagnosis Diagnosis Name Provider Source Jan 28, 2024 09:44 AM PRIMARY Attention-deficit hyperactivity disorder, unspecified type ROOTMIGUEL Jan 28, 2024 09:44 AM SECONDARY Post-traumatic stress disorder, unspecified ROOTMIGUEL Jan 28, 2024 09:44 AM SECONDARY Sleep apnea, unspecified ROOT,MIGUEL WILSON Plan of Treatment: Future Appointments (+ 6 months) and Future Tests (+/- 45 days) The Plan of Treatment section includes future care activities for the patient from all [place] [facility]. This section includes future appointments and future orders which are active, pending or scheduled. Future Appointments This section includes appointments that were scheduled to occur 6 months from the date of the Encounter, up to a maximum of 20 appointments. The data comes from all [place] treatment facilities. Appointment Date/Time Appointment Type Appointme nt Facility Name Jun 13, 2024 02:30 PM AMBULATORY - [facility]ICINE [facility] Jun 19, 2024 02:00 PM AMBULATORY - PSYCHIATRY [facility] Jul 18, 2024 07:00 PM AMBULATORY PSYCHIATRY [facility] Social History: Smoking Status (Most current) and Tobacco Use (All prior to encounter date) This section includes the most current, and the historical, smoking and tobacco- related health factors from the [place] facility where the Encounter took place. Current Smoking Status This section includes the most current smoking, or tobacco-related health factor, from the [place] facility where the Encounter took place. Date/Time Current Smoking Status Comment Cayla burton Mar 30, 2023 08:30 AM [place]-TOBACCO NEVER USED [place] Tobacco Use History This section includes a history of the smoking, or tobacco-related health factors, that were collected on or before the date of the Encounter. The data comes from the [place] facility where the Encounter took place. Date/Time Smoking Status/Tobacco Use Comment Ra faria Apr 14, 2022 08:30 AM [place]-TOBACCO NEVER USED [place] Encounter Notes: All associated encounter notes This section contains the clinical notes associated to the Encounter. Date/Time Encounter Note(s) Provider Source Mar 13, 2024 08:13 AM ACCOUNTING OF DISC LOSURES NOTE: LOCAL TITLE: STATE PRESCRIPTION DRUG MONITORING PROGRAM STANDARD TITLE: ACCOUNTING OF DISCLOSURES NOTE DATE OF NOTE: MAR 13, 2024@08:13:24 ENTRY DATE: MAR 13, 2024@08:13:24 AUTHOR: WERNER JASMINE EXP COSIGNER: URGENCY: STATUS: COMPLETED STATE PRESCRIPTION DRUG MONITORING PROGRAM Has ADDENDA This PDMP query was submitted by Werner Jasmine MD. The clinical justification for this PDMP query is to review controlled substances prescribed outside of the VA, and any additional information that may become available, as an important component of standard clinical care, and in accordance with [facility] policy. Patient information was shared with the PDMP Appriss [place]. No prescription(s) for controlled substances outside the VA were found in the last 90 days. /lydia JASMINE DO Psychiatrist Signed: 03/13/2024 08:13 03/13/2024 ADDENDUM STATUS: COMPLETED I am providing coverage, as Miguel is retired and most recently saw the in January,. I reviewed her note. It is reasonable to offer a refill of the requested stimulant. /lydia JASMINE DO Psychiatrist Signed: 03/13/2024 08:16 WERNER JASMINE Jan 28, 2024 07:43 AM ACCOUNTING OF DISC LOSURES NOTE: LOCAL TITLE: STATE PRESCRIPTION DRUG MONITORING PROGRAM STANDARD TITLE: ACCOUNTING OF DISCLOSURES NOTE DATE OF NOTE: JAN 28, 2024@07:43 ENTRY DATE: JAN 28, 2024@07:43 AUTHOR: MIGUEL CORTÉS COSIGNER: URGENCY: STATUS: COMPLETED This PDMP query was submitted by Miguel Cortés. The clinical justification for this PDMP query is to review controlled substances prescribed outside of the VA, and any additional information that may become available, as an important component of standard clinical care, and in accordance with [facility] policy. Patient information was shared with the PDMP Appriss [place]. No prescription(s) for controlled substances outside the VA were found in the last 90 days. /lydia Cortés APRN STAFF CLINICAL NURSE SPECIALIST Signed: 01/28/2024 07:44 MIGUEL CORTÉS Jan 11, 2024 09:57 AM ACCOUNTING OF DISC LOSURES NOTE: LOCAL TITLE: STATE PRESCRIPTION DRUG MONITORING PROGRAM STANDARD TITLE: ACCOUNTING OF DISCLOSURES NOTE DATE OF NOTE: JAN 11, 2024@09:57:33 ENTRY DATE: JAN 11, 2024@09:57:33 AUTHOR: JIAN PANCHAL EXP COSIGNER: URGENCY: STATUS: COMPLETED This PDMP query was submitted by Jian Panchal. The clinical justification for this PDMP query is to review controlled substances prescribed outside of the VA, and any additional information that may become available, as an important component of standard clinical care, and in accordance with [facility] policy. Patient information was shared with the PDMP Appriss [place]. No prescription(s) for controlled substances outside the VA were found in the last 90 days. /carolynn/ JIAN PANCHAL M.D. Signed: 01/11/2024 09:57 JIAN PANCHAL [place]
--- OUTSIDE RECORDS SUMMARY | 2024-12-14 06:43 | XMS_ITS | Encounter Summary ---
Author Name [facility] [place] Address [address] [place] [address] Care Team Providers Care Siderographist Name Role Phone IMELDA LAWRENCE Primary Care [...] Member ID Insurance Provider's Telephone Number Policy Arcihbald's Name Patient's Relationship to Policy Archibald BCBS [facility] ORGANIZAT ION [facility] FIRE DEPT Apr 03, 2024 [id number] Nathalie LY PATIENT Selected Encounter This section includes the information on record at [place] for the Encounter. Date/Time Encounter Type Encounter Description Reason Provider Source Dec 13, 2024 03:00 PM PSYTX W PT 60 MINUTES [facility]ENT[facility] CLINIC - IND ICD-10-CM F43.10 Post-traumatic stress disorder, unspecified JUDY HUNTER Shai Encounter Template Text not used by [place] Assessments - Encounter Diagnoses This section includes the primary and secondary diagnoses documented for the Encounter. Date/Time Primary/Secondary Diagnosis Diagnosis Name Provider Source Dec 13, 2024 03:34 PM PRIMARY Post-traumatic stress disorder, unspecified JUDY HUNTER KATIE Plan of Treatment: Future Appointments (+ 6 months) and Future Tests (+/- 45 days) The Plan of Treatment section includes future care activities for the patient from all [place] [facility]. This section includes future appointments and future orders which are active, pending or scheduled. Future Appointments This section includes appointments that were scheduled to occur 6 months from the date of the Encounter, up to a maximum of 20 appointments. The data comes from all [place] treatment facilities. Appointment Date/Time Appointment Type Appointme nt Facility Name February 15, 2025 07:00 PM AMBULATORY - PSYCHIATRY [facility] Apr 13, 2025 03:00 PM [facility] Jun 12, 2025 03:30 PM AMBULATORY - MEDICINE [facility] Social History: Smoking Status (Most current) and Tobacco Use (All prior to encounter date) This section includes the most current, and the historical, smoking and tobacco- related health factors from the [place] facility where the Encounter took place. Current Smoking Status This section includes the most current smoking, or tobacco-related health factor, from the [place] facility where the Encounter took place. Date/Time Current Smoking Status Comment Cayla burton Jun 13, 2024 02:30 PM [place]-TOBACCO NEVER USED [place] Tobacco Use History This section includes a history of the smoking, or tobacco-related health factors, that were collected on or before the date of the Encounter. The data comes from the [place] facility where the Encounter took place. Date/Time Smoking Status/Tobacco Use Comment F acsteph Mar 30, 2023 08:30 AM [place]-TOBACCO NEVER USED [place] Apr 14, 2022 08:30 AM [place]-TOBACCO NEVER USED [place]
--- OUTSIDE RECORDS SUMMARY | 2024-12-14 06:43 | XMS_ITS | Encounter Summary ---
Author Name [facility] [place] [facility] [place] Address [address] [place] [address] Care Team Providers Care Client Support Analyst Name Role Phone IMELDA LAWRENCE Primary Care [...] Archibald's Name Patient's Relationship to Policy [facility]ib[facility] FIRE DEPT Apr 03, 2024 [id number] Nathalie LY PATIENT Selected Encounter This section includes the information on record at [place] for the Encounter. Date/Time Encounter Type Encounter Description Reason Provider Source Nov 16, 2024 07:00 PM OFFICE O/P EST LOW 20 MIN [facility] - IND ICD-10-CM F90.9 Attention-deficit hyperactivity disorder, unspecified type KAREN LADD Encounter Template Text not used by [place] Assessments - Encounter Diagnoses This section includes the primary and secondary diagnoses documented for the Encounter. Date/Time Primary/Secondary Diagnosis Diagnosis Name Provider Source Nov 16, 2024 07:10 PM PRIMARY Attention-deficit hyperactivity disorder, unspecified type JOAO LADD Nov 16, 2024 07:10 PM SECONDARY Post-traumatic stress disorder, unspecified JOAO LADD Plan of Treatment: Future Appointments (+ 6 months) and Future Tests (+/- 45 days) The Plan of Treatment section includes future care activities for the patient from all [place] [facility]. This section includes future appointments and future orders which are active, pending or scheduled. Future Appointments This section includes appointments that were scheduled to occur 6 months from the date of the Encounter, up to a maximum of 20 appointments. The data comes from all [place] treatment facilities. Appointment Date/Time Appointment Type Appointme nt Facility Name Dec 13, 2024 03:00 PM AMBULATORY PS[facility]CHIATRY [facility] Dec 20, 2024 03:00 PM [facility] Dec 27, 2024 03:00 PM [facility] Jan 03, 2025 03:00 PM [facility] February 15, 2025 07:00 PM [facility] Social History: Smoking Status (Most current) and Tobacco Use (All prior to encounter date) This section includes the most current, and the historical, smoking and tobacco- related health factors from the [place] facility where the Encounter took place. Current Smoking Status This section includes the most current smoking, or tobacco-related health factor, from the [place] facility where the Encounter took place. Date/Time Current Smoking Status Comment Cayla burton Jun 13, 2024 02:30 PM [place]-TOBACCO NEVER USED [place] Tobacco Use History This section includes a history of the smoking, or tobacco-related health factors, that were collected on or before the date of the Encounter. The data comes from the [place] facility where the Encounter took place. Date/Time Smoking Status/Tobacco Use Comment F acsteph Mar 30, 2023 08:30 AM [place]-TOBACCO NEVER USED [place] Apr 14, 2022 08:30 AM [place]-TOBACCO [place] USED [place] Encounter Notes: All associated encounter notes This section contains the clinical notes associated to the Encounter. Date/Time Encounter Note(s) Provider Source Nov 16, 2024 07:00 PM TELEHEALTH NOTE: LOCAL TITLE: [place] VIDEO CONNECT PSYCHIATRIST NOTE STANDARD TITLE: TELEHEALTH NOTE DATE OF NOTE: NOV 16, 2024@19:00 ENTRY DATE: NOV 16, 2024@19:00:51 AUTHOR: JOAO LADD COSIGNER: URGENCY: STATUS: COMPLETED [facility] Video Connect (VVC) Standard Documentation VVC Clinician Resources Only: E911 (Emergency Call Relay Center): [phone] National Veterans Crisis Line - 988 then press #1. [place] Suicide Coordinator [phone], Ext. [phone]; Back-up Ext. [phone] [place] Police, [place], [place] [phone] Introduction: Visit is being conducted by [place] [facility]. [place] identified with 2 identifiers: [X] Full Name [X] Date of [ ] VA ID Card Emergency Plan: [place] confirmed and/or provided the following information in case of emergency or technology failure. PATIENT PHONE - PHONE NUMBER [CELLULAR] - Is patient phone number correct, if not, enter below: 's phone number: RUBIA LY [address], [place], [address] [place]'s present location and address for appointment: same as above 's emergency contact name and phone number: unchanged reported that location is private and safe: Yes Informed Consent: informed of the risks and benefits of Telehealth video care. [place] has the right to refuse video services. If refuses video visit, a [id number] visit will be scheduled. verbalized consent for this video visit: Yes provided consent for any other persons present for visit: N/A If yes, who and relationship to patient: Secure visit: Visit was locked for security and privacy:Yes CHART REVIEW: was previously treated by Cassandra Alston APRN, first seen by her Sep 2022, noting then: DIAGNOSIS Attention deficit hyperactivity disorder - Childhood onset but never diagnosed Bereavement Sleep Apnea PRESENTING PROBLEM - Currently prescribed Vyvanse 50mg . Provider retired. C/o distractibility. Difficultly staying on task , completing assignments Delayed or complicated bereavement brother's OD. 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 difficulties in school . He failed on some of his [employer] school . Which negatively affected his job and rank. Completed HS but did not do well. Recently failed [employer] exam last 2 months off the Vyvanse. SOCIAL HISTORY Substance use - occasional alcohol once a month 2 to 3 beers. See intake for additional details 2021 currently lives in his own home and am . I have a 20 you in college and 26 yo who lives on his own. Studying for [employer] . Failed in the past . Has exam ib12/2022 . Wants to get back on Vyvanse. Is still home with marital conflict. He is the oldest brother. His younger brother several years ago heroin overdose. He has 1 younger sister. Difficult relationship with mother emotional abuse noted denies physical sexual abuse. 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 [place] is the oldest , his younger brother February 05, 2020.Oldest is on his home. Youngest in college MEDICATION MANAGEMENT [place] currently prescribed Vyvanse 50mg. Last provider retired. Wants to continue with current medications . has been MEDICATION TRIALS - Concerti ,Vyvanse. tried one other stimulant he can not recall the name . Unable to tolerate . Reports Vyvanse effective since 2013. Denies adverse effects . 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 FORMULATION 51-year-old male. [employer]. Currently employed full-time [employer]. 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 He has a diagnosis of ADHD from 2013 which was confirmed with psychological testing. He failed the [employer] exam twice which precipitated his seeking psychological testing. He failed the captain's test once. He can retake it December 2022. [place] stable on Vyvanse 50 mg daily. Also takes clonazepam 0.5 mg 1 tablet at bedtime. Originally ordered for teeth grinding. [place] takes the clonazepam infrequently. Now takes for panic attacks. No substance abuse or safety concerns. 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 See intake for details. 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 Copeland. [place] endorses symptoms consistent with attention deficit disorder. Distractibility. Difficultly staying on task , completing assignments Vyvanse 50mg daily STIMULANT EDUCATION Stimulant agreement reviewed. No duplicate prescriptions in [place]. Posttraumatic stress disorder May benefit from SSRI medications. SSRI recommended in the past to reduce reliance on Clonazepam. [place] was give clonazepam in past from previous [...] had knee replacements by Dr Beltran in [place], right knee on 05/22/22 and left knee on 07/30/22 4. Erectile Dysfunction: on viagra 100mg/day 5. Colonoscopy Screenin08/25/21 - normal - repeat 10 yrs 6. 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 Obesity: BMI ~41, started Zepbound 2 mths ago, has lost 23 lbs, goal is to get to 200lb total weight (currently at 286 lbs) PRESENTATION AT TIME OF INITIAL VISIT WITH MYSELF 06/19/24: reports he previously saw Dr. Zelaya he just disappeared from [employer] from 2013 to Fall 2021. He states [...] through school, then I enlisted in the [employer]. I didn't have a great grades. I [...] next exam and got promoted, and on 's exam passed again (now #1 on Captain's list) a complete 360 . tells him he doesn't get hyperfocused on things like he used to (doing unplanned tasks), not just going from task to task but able to complete tasks he plans. Able to focus on the classroom now. INITIAL ASSESSMENT/ DIAGNOSIS AND RECOMMENDATIONS: Masood presents with past dx and successful treatment for ADHD combined type; his goal is eventually to come off meds. Given current BP, I suggested we try decreasing dose to 40mg Vyvanse daily, which he agrees to, and will try to check BP before next visit. NOTED AT LAST OP VISIT: reports it seems to be working fine, no difference from the 50mg . BP today 141/83. Weight down by 40lbs since April, now 269.4lbs. No changes made. PRESENTING SYMPTOMS AND CONDITION ON TODAY'S VISIT: reports I've been doing well. I was promoted to [employer] of the [employer]. Feeling fine. Losing weight on zepbound. 55lbs. Mother has vascular dementia. Still feels current dose working well. BP 140/86 CURRENT PSYCH meds: Vyvanse 40mg daily ADVERSE EFFECTS: none reported REVIEW OF SYSTEMS MENTAL HEALTH: SLEEP: fine at home (interrupted at work), on CPAP MOOD: denies history of depression PTSD symptoms: back in therapy, going well ANXIETY: denied ANGER/IRRITABILITY/AGGRESSION: Denies SUBSTANCE USE: Alcohol: [...] MED REC: now on Zepbound for weight loss MENTAL STATUS EXAMINATION - Appearance and behavior: [...] doing well despite dose decrease in Vyvanse. No changes indicated or desired. We discussed possibly trying to reduce dose again at next visit in context of current BP readings. i. Severity of Illness: ()none (x )mild [...] for a follow-up appointment with myself in: 12 weeks, sooner if needed Additional Follow-Up instructions: 1. Reinforced: If urgent treatment is needed, call [phone] or go to the nearest Emergency Room 2. To schedule or change an appointment, inquire about medication refills, etc: call office number during normal office hours Diagnoses: Attention deficit hyperactivity disorder ([facility] [id number]) - Attention-deficit hyperactivity disorder, unspecified type (ICD-10-CM F90.9) (Primary) Posttraumatic stress disorder ([facility] [id number]) - Post-traumatic stress disorder, unspecified (ICD-10-CM F43.10) /carolynn/ JOAO LADD M.D. Signed: 11/16/2024 19:10 JOAO LADD
--- OUTSIDE RECORDS SUMMARY | 2024-12-14 06:43 | XMS_ITS | Encounter Summary ---
Author Name [facility] Address [address] [place] [address] Care Team Providers Care Copy Machine Operator Name Role Phone IMELDA LAWRENCE Primary Care [...] Name Patient's Relationship to Policy Archibald BCBS [facility] DEPT Apr 03, 2024 [id number] Nathalie LY PATIENT [employer] ([id number]) PRESCRIPT [facility] Apr 03, 2018 [id number] [phone] Elza LY SPOUSE Selected Encounter This section includes the information on record at [place] for the Encounter. Date/Time Encounter Type Encounter Description Reason Provider Source Sep 22, 2024 10:00 AM PSYTX W PT 60 MINUTES [facility] - [facility] ICD-10-CM F43.10 Post-traumatic stress disorder, unspecified JUDY HUNTER Encounter Template Text not used by [facility] Assessments - Encounter Diagnoses This section includes the primary and secondary diagnoses documented for the Encounter. Date/Time Primary/Secondary Diagnosis Diagnosis Name Provider Source Oct 07, 2024 04:05 PM PRIMARY Post-traumatic stress disorder, unspecified JUDY HUNTER Plan of Treatment: Future Appointments (+ 6 months) and Future Tests (+/- 45 days) The Plan of Treatment section includes [facility] care [facility] the [facility] [place] [facility] This section includes future appointments and future orders which are active, pending or scheduled. Future Appointments This section includes appointments that were scheduled to occur 6 months from the date of the Encounter, up to a maximum of 20 appointments. The data comes from all [place] treatment facilities. Appointment Date/Time Appointment Type Appointme nt Facility Name Oct 25, 2024 03:00 PM AM[facility]ULATORY - [place] [facility] [place] [facility] Nov 01, 2024 03:00 PM AMBULATORY PSYCHIATRY [facility] [place] [facility] Nov 08, 2024 03:00 PM AMBULATORY PS[facility]CHIATRY [facility] [place] [facility] Nov 16, 2024 07:00 PM AMBULATORY PSYCHIATRY [facility] [place] [facility] Dec 13, 2024 03:00 PM AMBULATORY - [facility]ATRY [facility] [place] [facility] Dec 20, 2024 03:00 PM AMBULATORY PSYCHIATRY [facility] [place] [facility] Dec 27, 2024 03:00 PM AMBULATORY - [facility]ATRY [facility] [place] [facility] Jan 03, 2025 03:00 PM AMBULATORY - [place]RY [place] [facility] [place] [facility] Social History: Smoking Status (Most current) and Tobacco Use (All prior to encounter date) This section includes the most current, and the historical, smoking and tobacco- related health factors from the [place] facility where the Encounter took place. Current Smoking Status This section includes the most current smoking, or tobacco-related health factor, from the [place] facility where the Encounter took place. Date/Time Current Smoking Status Comment Cayla burton Jun 13, 2024 02:30 PM [place]-TOBACCO NEVER USED [facility] Tobacco Use History This section includes a history of the smoking, or tobacco-related health factors, that were collected on or before the date of the Encounter. The data comes from the [place] facility where the Encounter took place. Date/Time Smoking Status/Tobacco Use Comment F acility Mar 30, 2023 08:30 AM [facility]-TOBACCO NEVER USED [facility] Apr 14, 2022 08:30 AM [facility]-TOBACCO NEVER USED [facility] Encounter Notes: All associated encounter notes This section contains the clinical notes associated to the Encounter. Date/Time Encounter Note(s) Provider Source Sep 22, 2024 01:53 PM MENTAL HEALTH NOTE : LOCAL TITLE: EMDR FOR PTSD NOTE STANDARD TITLE: MENTAL HEALTH NOTE DATE OF NOTE: SEP 22, 2024@13:53 ENTRY DATE: SEP 22, 2024@13:53:31 AUTHOR: JUDY HUNTER EXP COSIGNER: MARTA BLAS URGENCY: STATUS: COMPLETED INFORMED CONSENT REVIEWED: At beginning of session reviewed rights and limits of confidentiality, mandatory reporting situations, duty to warn and protect, Wheat Warning, (if treatment team finds patient to be an acute danger to himself or others, that this information could be relayed to a court of law and presented to a shingle weaver), and DOD access for active duty service members. Provided Suicide Prevention Hotline number, and other contact numbers as necessary. 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 I also have a lot of issues about my family, especially my mother, that I'd like to get some help on. SESSION FOCUS: Medical Records Supervisor provided EMDR psychoeducation and orientation to process. and vp revenue cycle will develop target list (worst/best) next session and proceed with reprocessing sessions starting Oct 2024. reported some feelings of anger/anxiety related to a work assignment that he did not want and is trying to figure out the best way to manage his disappointment and also continue the negotiations with his supervisor [employer]. INTERVENTIONS: Psychotherapeutic Interventions: Active listening, validating, reflecting Psychoeducation reviewed: NA ASSESSMENT: BRIEF ASSESSMENT OF MENTAL STATUS: 1. [...] Desensitization and Reprocessing (EMDR) /carolynn/ JUDY HUNTER MANAGER PLAY Signed: 10/07/2024 16:06 /carolynn/ MAX GALICIA Exhaust Worker Mental Health Cosigned: 10/09/2024 07:34 JUDY HUNTER
--- OUTSIDE RECORDS SUMMARY | 2024-12-14 06:43 | XMS_ITS | Patient Health Record ---
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2 - 1.3 BLD Negative Negative - Reason For Referral No Information Medications Medication SIG (Take, Route, Frequency, Duration) Notes Start Date End Date Status Metoprolol Succinate ER 100 MG TAKE 1 TABLET BY MOUTH EVERY DAY Active Naproxen 500 MG TAKE 1 TABLET BY MOUTH EVERY 12 HOURS Orally every 12 hrs Active Triamcinolone Acetonide 0.1 % 1 application Externally twice a day 09/18/2024 Active Viagra 100 MG 1 tablet as needed Orally Once a day 01/31/2019 Active Vyvanse 50 MG 1 capsule in the morning Orally Once a day Active Zepbound 7.5 MG/0.5ML 0.5 mL Subcutaneou s weekly dispense 4 pens 07/03/2024 Active Lisinopril 40 MG 1 tablet Orally Once a day 09/13/2023 Active Immunizations Vaccine Route Administration Date Status Comme nts Influenza, quad Unknown 07/12/2021 Administered COVID 19 Moderna Unknown 10/17/2020 Administered Tdap Unknown 2021 Administered SHINGRIX Unknown 02/13/2021 Administered COVID 19 Moderna Unknown 11/14/2020 Administered COVID 19 Moderna Unknown 09/10/2021 Administered Influenza no Preserv 3 and > Unknown 06/26/2020 Adminis tered Social History Tobacco Use: Social History Observation [...] Problem Status W/U Status Risk Notes Problem 425693583 Other obesity due to excess calories (E66.09) Active confirmed He has lost 12 pounds since his last visit. He was continued on current medication without change. Follow-up was arranged. Problem 723446236 BPH (benign prostatic hyperplasia) (N40.0) Active confirmed We have discussed lifestyle modifications which are reduced nocturnal urinating. He rises on the average of once a night. No change in his regimen was needed. Problem 32442416 Essential hypertension (I10) Active confirmed His blood pressure is coming under control. He is continuing his efforts is sodium restriction weight loss and physical activity. He finds the arthritis in his right knee eliminating his activity. We discussed her weight reduction diet at length. Problem 14307073 Right knee pain (M25.561) Active confirmed His knee pain is mild to moderate and does not interfere with work. He uses ibuprofen and Tylenol and rest. Problem 17082964 Sleep apnea (G47.30) Active confirmed He says he is using his CPAP machine and likes it very much. He has one for home and one for travel. Problem 393118945 ADHD (attention deficit hyperactivity disorder) (F90.9) Active confirmed His deficit is stable and requires no treatment at this time. Problem [id number] Sensorineural hearing loss (SNHL) of right ear with unrestricted hearing of left ear (H90.41) Active confirmed There is nothing in his history other than his employment in the [employer] that would cause hearing loss. Vital Signs Heart Rate 63 /min 11/13/2024 Temperature 98.8 degrees Fahrenheit 11/13/2024 Blood pressure diastolic 78 mm Hg 11/13/2024 Height 70 in 11/13/2024 Blood pressure systolic 140 mm Hg 11/13/2024 Weight 257 lbs 11/13/2024 BMI 36.87 kg/m2 11/13/2024 Encounters Encounter Location Date Provider Diagnosis Michele Alexander III, MD [address] [place] [address] [place] [address] 02/22/2024 Michele Alexander BPH (benign prostati c hyperplasia) N40.0 ; Sleep apnea G47.30 ; ADHD (attention deficit hyperactivity disorder) F90.9 ; Sensorineural hearing loss (SNHL) of right ear with unrestricted hearing of left ear H90.41 ; Essential hypertension I10 and Morbid obesity E66.01 Michele Alexander III, MD [address] [place] [address] [place] [address] 02/29/2024 Michele Alexander BPH (benign prostati c hyperplasia) N40.0 ; Sleep apnea G47.30 ; ADHD (attention deficit hyperactivity disorder) F90.9 ; Right knee pain M25.561 ; Sensorineural hearing loss (SNHL) of right ear with unrestricted hearing of left ear H90.41 ; Morbid obesity E66.01 and Essential hypertension I10 Michele Alexander III, MD [address] [place] [address] [place] [address] 04/20/2024 Michele Alexander BPH (benign prostati c hyperplasia) N40.0 ; Sleep apnea G47.30 ; Right knee pain M25.561 ; Sensorineural hearing loss (SNHL) of right ear with unrestricted hearing of left ear H90.41 ; Essential hypertension I10 and Morbid obesity E66.01 Michele Alexander III, MD [address] [place] [address] [place] [address] 05/08/2024 Michele Alexander BPH (benign prostati c hyperplasia) N40.0 ; Sleep apnea G47.30 ; Right knee pain M25.561 ; ADHD (attention deficit hyperactivity disorder) F90.9 and Morbid obesity E66.01 Michele Alexander III, MD [address] [place] [address] [place] [address] 07/03/2024 Michele Alexander BPH (benign prostati c hyperplasia) N40.0 ; Morbid obesity E66.01 ; Sleep apnea G47.30 ; Right knee pain M25.561 ; ADHD (attention deficit hyperactivity disorder) F90.9 ; Sensorineural hearing loss (SNHL) of right ear with unrestricted hearing of left ear H90.41 and Essential hypertension I10 Michele Alexander III, MD [address] [place] [address] [place] [address] 09/18/2024 Michele Alexander Sleep apnea G47.30 ; Other obesity due to excess calories E66.09 ; ADHD (attention deficit hyperactivity disorder) F90.9 ; Sensorineural hearing loss (SNHL) of right ear with unrestricted hearing of left ear H90.41 ; BPH (benign prostatic hyperplasia) N40.0 ; Right knee pain M25.561 ; Essential hypertension I10 and Dermatitis, unspecified L30.9 Michele Alexander III, MD [address] [place] [address] [place] [address] 11/13/2024 Michele Alexander BPH (benign prostati c hyperplasia) N40.0 ; Other obesity due to excess calories E66.09 ; Sensorineural hearing loss (SNHL) of right ear with unrestricted hearing of left ear H90.41 ; Right knee pain M25.561 ; Sleep apnea G47.30 and Essential hypertension I10 Michele Alexander III, MD [address] [place] [address] [place] [address] 02/23/2024 Michele Alexander BPH (benign prostati c hyperplasia) N40.0 Michele Alexander III, MD [address] [place] [address] [place] [phone] 04/03/2024 Michele Alexander BPH (benign prostati c hyperplasia) N40.0 Michele Alexander III, MD [address] [place] [address] [address] [place] [address] 05/18/2024 Michele Bradyne BPH (benign prostati c hyperplasia) N40.0 Michele Alexander III, MD [address] [place] [address] [address] [place] [address] 05/15/2024 Michele Bradyne BPH (benign prostati c hyperplasia) N40.0 Assessments Encounter Date Diagnosis (ICD Code) Assessment Notes Treat ment Notes Treatment Clinical Notes 02/22/2024 BPH (benign prostatic hyperplasia) (ICD-10 - N40.0) We have discussed lifestyle modifications which are reduced nocturnal urinating. He rises on the average of once a night. No change in his regimen was needed. 02/22/2024 Sleep apnea (ICD-10 - G47.30) He says he is using his CPAP machine and likes it very much. He has one for home and one for travel. 02/29/2024 BPH (benign prostatic hyperplasia) (ICD-10 - N40.0) We have discussed lifestyle modifications which are reduced nocturnal urinating. He rises on the average of once a night. No change in his regimen was needed. 02/29/2024 Sleep apnea (ICD-10 - G47.30) He says he is using his CPAP machine and likes it very much. He has one for home and one for travel. 04/20/2024 BPH (benign prostatic hyperplasia) (ICD-10 - N40.0) We have discussed lifestyle modifications which are reduced nocturnal urinating. He rises on the average of once a night. No change in his regimen was needed. 04/20/2024 Sleep apnea (ICD-10 - G47.30) He says he is using his CPAP machine and likes it very much. He has one for home and one for travel. 05/08/2024 BPH (benign prostatic hyperplasia) (ICD-10 - N40.0) We have discussed lifestyle modifications which are reduced nocturnal urinating. He rises on the average of once a night. No change in his regimen was needed. 05/08/2024 Sleep apnea (ICD-10 - G47.30) He says he is using his CPAP machine and likes it very much. He has one for home and one for travel. 07/03/2024 BPH (benign prostatic hyperplasia) (ICD-10 - N40.0) We have discussed lifestyle modifications which are reduced nocturnal urinating. He rises on the average of once a night. No change in his regimen was needed. 07/03/2024 Morbid obesity (ICD-10 - E66.01) He has lost 24 pounds with his new medication. His craving for foot is diminished. He'll be seen frequently and followed carefully during his weight loss program. 09/18/2024 Other obesity due to excess calories (ICD-10 - E66.09) He has lost 15 pounds since his last visit in June 2024. He was continued on current medication without change. Follow-up was arranged. 09/18/2024 Sleep apnea (ICD-10 - G47.30) He says he is using his CPAP machine and likes it very much. He has one for home and one for travel. 11/13/2024 Other obesity due to excess calories (ICD-10 - E66.09) He has lost 12 pounds since his last visit. He was continued on current medication without change. Follow-up was arranged. 11/13/2024 BPH (benign prostatic hyperplasia) (ICD-10 - N40.0) We have discussed lifestyle modifications which are reduced nocturnal urinating. He rises on the average of once a night. No change in his regimen was needed. 02/23/2024 BPH (benign prostatic hyperplasia) (ICD-10 - N40.0) We have discussed lifestyle modifications which are reduced nocturnal urinating. He rises on the average of once a night. No change in his regimen was needed. 04/03/2024 BPH (benign prostatic hyperplasia) (ICD-10 - N40.0) We have discussed lifestyle modifications which are reduced nocturnal urinating. He rises on the average of once a night. No change in his regimen was needed. 05/18/2024 BPH (benign prostatic hyperplasia) (ICD-10 - N40.0) We have discussed lifestyle modifications which are reduced nocturnal urinating. He rises on the average of once a night. No change in his regimen was needed. 05/15/2024 BPH (benign prostatic hyperplasia) (ICD-10 - N40.0) We have discussed lifestyle modifications which are reduced nocturnal urinating. He rises on the average of once a night. No change in his regimen was needed. 02/22/2024 ADHD (attention deficit hyperactivity disorder) (ICD-10 - F90.9) His deficit is stable and requires no treatment at this time. 02/29/2024 ADHD (attention deficit hyperactivity disorder) (ICD-10 - F90.9) His deficit is stable and requires no treatment at this time. 04/20/2024 Right knee pain (ICD-10 - M25.561) His knee pain is mild to moderate and does not interfere with work. He uses ibuprofen and Tylenol and rest. 05/08/2024 Right knee pain (ICD-10 - M25.561) His knee pain is mild to moderate and does not interfere with work. He uses ibuprofen and Tylenol and rest. 07/03/2024 Sleep apnea (ICD-10 - G47.30) He says he is using his CPAP machine and likes it very much. He has one for home and one for travel. 09/18/2024 ADHD (attention deficit hyperactivity disorder) (ICD-10 - F90.9) His deficit is stable and requires no treatment at this time. 11/13/2024 Sensorineural hearing loss (SNHL) of right ear with unrestricted hearing of left ear (ICD-10 - H90.41) There is nothing in his history other than his employment in the [employer] that would cause hearing loss. 02/22/2024 Sensorineural hearing loss (SNHL) of right ear with unrestricted hearing of left ear (ICD-10 - H90.41) There is nothing in his history other than his employment in the [employer] that would cause hearing loss. 02/29/2024 Right knee pain (ICD-10 - M25.561) His knee pain is mild to moderate and does not interfere with work. He uses ibuprofen and Tylenol and rest. 04/20/2024 Sensorineural hearing loss (SNHL) of right ear with unrestricted hearing of left ear (ICD-10 - H90.41) There is nothing in his history other than his employment in the [employer] that would cause hearing loss. 05/08/2024 ADHD (attention deficit hyperactivity disorder) (ICD-10 - F90.9) His deficit is stable and requires no treatment at this time. 07/03/2024 Right knee pain (ICD-10 - M25.561) His knee pain is mild to moderate and does not interfere with work. He uses ibuprofen and Tylenol and rest. 09/18/2024 Sensorineural hearing loss (SNHL) of right ear with unrestricted hearing of left ear (ICD-10 - H90.41) There is nothing in his history other than his employment in the [employer] that would cause hearing loss. 11/13/2024 Right knee pain (ICD-10 - M25.561) His knee pain is mild to moderate and does not interfere with work. He uses ibuprofen and Tylenol and rest. 02/22/2024 Essential hypertension (ICD-10 - I10) His blood pressure is currently stable. He is continuing his efforts is sodium restriction weight loss and physical activity. He finds the arthritis in his right knee eliminating his activity. We discussed her weight reduction diet at length. 02/29/2024 Sensorineural hearing loss (SNHL) of right ear with unrestricted hearing of left ear (ICD-10 - H90.41) There is nothing in his history other than his employment in the [employer] that would cause hearing loss. 04/20/2024 Essential hypertension (ICD-10 - I10) His blood pressure is coming under control. He is continuing his efforts is sodium restriction weight loss and physical activity. He finds the arthritis in his right knee eliminating his activity. We discussed her weight reduction diet at length. 05/08/2024 Morbid obesity (ICD-10 - E66.01) He has lost 12 pounds with his new medication. His craving for foot is diminished. He'll be seen frequently and followed carefully during his weight loss program. 07/03/2024 ADHD (attention deficit hyperactivity disorder) (ICD-10 - F90.9) His deficit is stable and requires no treatment at this time. 09/18/2024 BPH (benign prostatic hyperplasia) (ICD-10 - N40.0) We have discussed lifestyle modifications which are reduced nocturnal urinating. He rises on the average of once a night. No change in his regimen was needed. 11/13/2024 Sleep apnea (ICD-10 - G47.30) He says he is using his CPAP machine and likes it very much. He has one for home and one for travel. 02/22/2024 Morbid obesity (ICD-10 - E66.01) His weight is stable at 308 pounds. His body mass index is 44. He has not gained weight since his last visit. We reinforced his weight loss strategy and will followw closely. 02/29/2024 Morbid obesity (ICD-10 - E66.01) His weight is stable at 307Right knee right knee pounds. His body mass index is 44. He has not gained weight since his last visit. We reinforced his weight loss strategy and will followw closely. 04/20/2024 Morbid obesity (ICD-10 - E66.01) His weight is stable at 307Right knee right knee pounds. His body mass index is 44. He has not gained weight since his last visit. We reinforced his weight loss strategy and will followw closely. 07/03/2024 Sensorineural hearing loss (SNHL) of right ear with unrestricted hearing of left ear (ICD-10 - H90.41) There is nothing in his history other than his employment in the [employer] that would cause hearing loss. 09/18/2024 Right knee pain (ICD-10 - M25.561) His knee pain is mild to moderate and does not interfere with work. He uses ibuprofen and Tylenol and rest. 11/13/2024 Essential hypertension (ICD-10 - I10) His blood pressure is coming under control. He is continuing his efforts is sodium restriction weight loss and physical activity. He finds the arthritis in his right knee eliminating his activity. We discussed her weight reduction diet at length. 02/29/2024 Essential hypertension (ICD-10 - I10) His blood pressure is currently stable. He is continuing his efforts is sodium restriction weight loss and physical activity. He finds the arthritis in his right knee eliminating his activity. We discussed her weight reduction diet at length. 07/03/2024 Essential hypertension (ICD-10 - I10) His blood pressure is coming under control. He is continuing his efforts is sodium restriction weight loss and physical activity. He finds the arthritis in his right knee eliminating his activity. We discussed her weight reduction diet at length. 09/18/2024 Essential hypertension (ICD-10 - I10) His blood pressure is coming under control. He is continuing his efforts is sodium restriction weight loss and physical activity. He finds the arthritis in his right knee eliminating his activity. We discussed her weight reduction diet at length. 09/18/2024 Dermatitis, unspecified (ICD-10 - L30.9) He was givenn a supply of triamcinolone to use. Plan Of Treatment Pending Test Test Name Order Date URINE DIP STICK 02/18/2021 PROFILE, FASTING (COMPREHENSIVE METABOLI C) 12/08/2017 PROFILE, FASTING (COMPREHENSIVE METABOLI C) 09/18/2024 PROFILE, FASTING (COMPREHENSIVE METABOLI C) 04/30/2023 PROFILE, FASTING (COMPREHENSIVE METABOLI C) 05/15/2015 PROFILE, FASTING (COMPREHENSIVE METABOLI C) 04/28/2022 PROFILE, FASTING (COMPREHENSIVE METABOLI C) 12/28/2018 PROFILE, FASTING (COMPREHENSIVE METABOLI C) 03/11/2022 PROFILE, FASTING (COMPREHENSIVE METABOLI C) 03/08/2020 PROFILE, RANDOM (COMPREHENSIVE METABOLIC ) 11/17/2019 MAGNESIUM 09/18/2024 LIPID PANEL 03/08/2020 LIPID PANEL 12/08/2017 LIPID PANEL 04/30/2023 LIPID PANEL 05/15/2015 LIPID PANEL 11/17/2019 LIPID PANEL 04/28/2022 LIPID PANEL 12/28/2018 FREE T4 (FT4) 12/08/2017 TSH (THYROID STIMULATING HORMONE) 2017 PSA, TOTAL 04/30/2023 PSA, TOTAL 05/15/2015 PSA, TOTAL 04/28/2022 PSA, TOTAL 03/11/2022 PSA, TOTAL 12/08/2017 PSA, TOTAL 12/28/2018 CBC w DIFF 12/28/2018 CBC w DIFF 03/08/2020 CBC w DIFF 09/18/2024 CBC w DIFF 11/17/2019 CBC w DIFF 04/30/2023 CBC w DIFF 05/15/2015 CBC w DIFF 04/28/2022 CBC w DIFF 03/11/2022 CBC w DIFF 12/08/2017 XR CHEST 2 VIEW PA & LAT 09/13/2020 XR CHEST 2 VIEW PA & LAT 12/08/2017 XR RIBS RT 12/08/2017 Uric Acid 09/18/2024 Lipid Panel 03/11/2022 Lipid Panel 09/18/2024 Next Appt Details Provider Name:Michele Alexander, 12/15/2024 03:15:00 PM, [address] [place] [address] [address] [facility] [place], [place], [phone], Provider Name:Michele Alexander, 05/15/2025 04:00:00 PM, [address] [place] [address] ZAFAR LANDA, [place], [address], Insurance Providers Payer Name Payer Address Payer Phone Subscriber Number Group Number Insured Name Patient Relationship to Insured Coverage Start Date Coverage End Date [facility] [address] [place], [place] [id number] Edgar Hankins Self - patient is the insured 4 Medical (General) History Medical History History ICD Code sleep apnea Severe osteoarthritis, right knee attention deficit disorder February 2015 fracture mandible in hockey umbilical hernia Essential hypertension Morbid obesity {'High Blood Pressure': 'Patient reporte d high readings at home'} Surgical History Surgery Date(Month/Year) No history left knee replacement surgery, [facility] 07/2022 right knee replacement surgery, [facility] 05/2022 colonoscopy 08/2021 Hospitalization History Reason Date(Month/Year) No history
--- OUTSIDE RECORDS SUMMARY | 2024-12-14 06:43 | XMS_ITS | Encounter Summary ---
Author Name [facility] [place] [facility] [place] [facility] [place] Address [address] [place] [address] Care Team Providers Care Gin Operator Name Role Phone IMELDA LAWRENCE Primary [...] BCBS [facility] ORGANIZAT [facility] FIRE DEPT Apr 03, 2024 [id number] Nathalie HANKINS PATIENT [employer] ([id number]) PRESCRIPT ION [facility] Apr 03, 2018 [id number] Elza HANKINS SPOUSE Selected Encounter This section includes the information on record at [place] for the Encounter. Date/Time Encounter Type Encounter Description Reason Provider Source Jun 19, 2024 02:00 PM OFF/OP CNSLTJ NEW/EST MOD 40 [facility] - IND ICD-10-CM F90.9 Attention-deficit hyperactivity disorder, unspecified type KAREN PANCHAL Encounter Template Text not used by [facility] Assessments - Encounter Diagnoses This section includes the primary and secondary diagnoses documented for the Encounter. Date/Time Primary/Secondary Diagnosis Diagnosis Name Provider Source Jun 19, 2024 02:28 PM PRIMARY Attention-deficit hyperactivity disorder, unspecified type JIAN PANCHAL Plan of Treatment: Future Appointments (+ 6 months) and Future Tests (+/- 45 days) The Plan of Treatment section includes future care activities for the patient from [facility] [place] [facility]. This section includes future appointments and future orders which are active, pending or scheduled. Future Appointments This section includes appointments that were scheduled to occur 6 months from the date of the Encounter, up to a maximum of 20 appointments. The data comes from all [place] treatment facilities. Appointment Date/Time Appointment Type Appointme nt Facility Name Jul 18, 2024 07:00 PM [place] [facility] [place] [facility] Aug 17, 2024 07:30 PM [place] [facility] [place] [facility] Aug 25, 2024 10:00 AM [place] [facility] [place] [facility] Sep 22, 2024 10:00 AM [place] [facility] [place] [facility] Oct 25, 2024 03:00 PM [place] [facility] [place] [facility] Nov 01, 2024 03:00 PM [place] [facility] [place] [facility] Nov 08, 2024 03:00 PM [place] [facility] [place] [facility] Nov 16, 2024 07:00 PM [place] [facility] [place] [facility] Dec 13, 2024 03:00 PM [place] [facility] [place] [facility] Social History: Smoking Status (Most current) and Tobacco Use (All prior to encounter date) This section includes the most current, and the historical, smoking and tobacco- related health factors from the [facility] facility where the Encounter took place. Current Smoking Status This section includes the most current smoking, or tobacco-related health factor, from the [place] facility where the Encounter took place. Date/Time Current Smoking Status Comment Cayla burton Jun 13, 2024 02:30 PM VA-TOBACCO NEVER USED [facility] Tobacco Use History This section includes a history of the smoking, or tobacco-related health factors, that were collected on or before the date of the Encounter. The data comes from the [place] facility where the Encounter took place. Date/Time Smoking Status/Tobacco Use Comment F acility Mar 30, 2023 08:30 AM VA-TOBACCO NEVER USED [facility] Apr 14, 2022 08:30 AM VA-TOBACCO NEVER USED [facility] Encounter Notes: All associated encounter notes This section contains the clinical notes associated to the Encounter. Date/Time Encounter Note(s) Provider Source Jun 19, 2024 01:58 PM TELEHEALTH CONSULT : LOCAL TITLE: CONSULT REPORT/VA VIDEO CONNECT PSYCHIATRIST NOTE STANDARD TITLE: TELEHEALTH CONSULT DATE OF NOTE: JUN 19, 2024@13:58 ENTRY DATE: JUN 19, 2024@14:00:16 AUTHOR: JIAN PANCHAL EXP COSIGNER: URGENCY: STATUS: COMPLETED VA Video Connect (VVC) Standard Documentation VVC Clinician Resources Only: E911 (Emergency Call Relay Center): [phone] [facility] Crisis Line - 988 then press #1. [facility] Suicide Coordinator [phone], Ext. [phone]; Back-up Ext. [phone] [place] Police, Chao RAMIREZ [phone] Introduction: Visit is being conducted by [employer] identified with 2 identifiers: [X] Full Name [X] Date of [ ] VA ID Card Emergency Plan: Manlius confirmed and/or provided the following information in case of emergency or technology failure. PATIENT PHONE - PHONE NUMBER [CELLULAR] - Is patient phone number correct, if not, enter below: 's phone number: RUBIA HANKINS [address], [place], [address] Manlius's present location and address for appointment: [address] [place] [address] 's emergency contact name and phone number: Sim Hankins [phone] reported that location is private and safe: Yes Informed Consent: Manlius informed of the risks and benefits of Telehealth video care. has the right to refuse video services. If refuses video visit, a [id number]-[id number] visit will be scheduled. Manlius verbalized consent for this video visit: Yes Manlius provided consent for any other persons present for visit: N/A If yes, who and relationship to patient: Secure visit: Visit was locked for security and privacy:Yes CHART REVIEW: Manlius was previously treated by Cassandra Alston APRN, first seen by her Sep 2022, noting then: DIAGNOSIS Attention deficit hyperactivity disorder - Childhood onset but never diagnosed Bereavement Sleep Apnea PRESENTING PROBLEM - Currently prescribed Vyvanse 50mg . Provider retired. C/o distractibility. Difficultly staying on task , completing assignments Delayed or complicated bereavement brother's OD. Manlius diagnosed with adhd in 2013 after failing [...] managing symptoms w/o medications last 2 months. Manlius is on light duty. 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 difficulties in school . He failed on some of his [employer] school . Which negatively affected his job [...] who lives on his own. Studying for captain . Failed in the past . Has exam . Wants to get back on eefoof.come. Is still home with marital conflict. He is the oldest brother. His younger brother several years ago heroin overdose. He has 1 younger sister. Difficult relationship with mother emotional abuse noted denies physical sexual abuse. 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 is the oldest , his younger brother February 05, 2020.Oldest is on his home. Youngest in college MEDICATION MANAGEMENT currently prescribed Vyvanse 50mg. Last provider retired. 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 FORMULATION 51-year-old male. [employer] . Currently employed full-time [employer]. 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 He has a diagnosis of ADHD from 2013 which was confirmed with psychological testing. He failed the [employer] exam twice which precipitated his seeking psychological testing. He failed the captain's test once. He can retake it December 2022. Manlius stable on Vyvanse 50 mg daily. Also takes clonazepam 0.5 mg 1 tablet at bedtime. Originally ordered for teeth grinding. takes the clonazepam infrequently. Now takes for panic attacks. No substance abuse or safety concerns. 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 See intake for details. 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 Copeland. endorses symptoms consistent with attention deficit disorder. Distractibility. Difficultly staying on task , completing assignments Vyvanse 50mg daily STIMULANT EDUCATION Stimulant agreement reviewed. No duplicate prescriptions in [place]. Posttraumatic stress disorder May benefit from SSRI medications. SSRI recommended in the past to reduce reliance on Clonazepam. was give clonazepam in past from previous provider for teeth grinding as a possible side effect of Vyvanse. ?? did not experience Teeth grinding. He stopped the clonazepam w/o difficultly Attention deficit hyperactivity disorder Lisdexamfetamine 50mg daily. with benefit. Denies s/e's. Plan - continue Vyvanse 50 mg take 1 capsule daily. Continue clonazepam 0.5 mg take 1 capsule daily. Obtain UDS . --------- MEDICAL PROBLEMS, per PCP Jun 2024: ASSESSMENT/PLAN: 1. Hypertension: on metoprolol succinate 100mg/day and lisinopril 40mg/day 2. ADHD: on vyvanse 50mg/day, med can cause grinding of teeth so he is prescribed clonazepam 0.5mg at night prn 3. OA B/L Knees: on naproxen 500mg/day prn, had knee replacements by Dr Beltran in [place], right knee on 05/22/22 and left knee on 07/30/22 4. Erectile Dysfunction: on viagra 100mg/day 5. Colonoscopy Screenin08/25/21 - normal - repeat 10 yrs 6. 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 Obesity: BMI ~41, started Zepbound 2 mths ago, has lost 23 lbs, goal is to get to 200lb total weight (currently at 286 lbs) PRESENTATION AT TIME OF INITIAL VISIT WITH MYSELF: Manlius reports he previously saw Dr. Zelaya he just disappeared from [employer] from 2013 to Fall 2021. He [...] through school, then I enlisted in the [employer]. I didn't have a great grades. I [...] Able to focus on the classroom now. CURRENT PSYCH meds: Vyvanse 50mg daily ADVERSE EFFECTS: none reported REVIEW OF [...] Suicidal Thoughts/Intent/plan: denied, no history of attempts never thought about it ; no weapons at home Social Status/ Stressors: no stressors VS: 06/13/2024 T 98.1 P 57 BP 150/85 then 148/92 Ht 70 WT 285.6 BMI 41 (typically 140/90) MED REC: no changes reported MENTAL STATUS EXAMINATION - Appearance and behavior: Appears stated age, appropriately groomed and dressed, pleasant and cooperative - Speech and language: without impairment of rate, rhythm, inflection, volume, or fluency, without latency - Mood: as noted above - Affect: pleasant and calm without lability or agitation - Thought Process: Linear, logical; no loosening [...] CONDITION AND OVERALL PROGRESS TOWARD TREATMENT GOALS: presents with past dx and successful treatment for ADHD combined type; his goal is eventually to come off meds. Given current BP, I suggested we try decreasing dose to 40mg Vyvanse daily, which he agrees to, and will try to check BP before next visit. i. Severity of Illness: ()none [...] discussed medication options: risks, side effects alternatives ? understood and accepted; answered patient questions PLAN [...] Reinforced: If urgent treatment is needed, call [phone] or go to the nearest Emergency Room 2. To schedule or change an appointment, inquire about medication refills, etc: call office number during normal office hours /lydia PANCHAL M.D. Signed: 06/19/2024 14:29 JIAN PANCHAL Jun 19, 2024 01:50 PM ACCOUNTING OF DISC LOSURES NOTE: LOCAL TITLE: STATE PRESCRIPTION DRUG MONITORING PROGRAM STANDARD TITLE: ACCOUNTING OF DISCLOSURES NOTE DATE OF NOTE: JUN 19, 2024@13:50:41 ENTRY DATE: JUN 19, 2024@13:50:41 AUTHOR: JIAN PANCHAL EXP COSIGNER: URGENCY: STATUS: COMPLETED This PDMP query was submitted by Jian Panchal The clinical justification for this PDMP query is to review controlled substances prescribed outside of the [facility], and any additional information that may become available, as an important component of standard clinical care, and in accordance with [facility] policy. Patient information was shared with the PDMP Appriss [place]. No prescription(s) for controlled substances outside the [facility] were found in the last 90 days. /lydia PANCHAL M.D. Signed: 06/19/2024 14:29 JIAN PANCHAL
--- OUTSIDE RECORDS SUMMARY | 2024-12-14 06:43 | XMS_ITS ---
Author Name [facility] [place] [facility] [place] [facility] [place] Address [address] [place] [address] Care Team Providers Care Pmo Consultant Name Role Phone IMELDA LAWRENCE Primary Care [...] Name Patient's Relationship to Policy [facility]ibald [facility] ION [facility] FIRE DEPT Apr 03, 2024 [id number] Nathalie LY PATIENT Selected Encounter This section includes the information on record at [place] for the Encounter. Date/Time Encounter Type Encounter Description Reason Pro vider Source Nov 23, 2024 09:17 AM Outpatient En[facility] En[facility] Template Text not used by [place] Plan of Treatment: Future Appointments (+ 6 [...] 20 appointments. The data comes from all [place] treatment facilities. Appointment Date/Time Appointment Type Appointme nt Facility Name Dec 13, 2024 03:00 PM [place] [facility] [place] [facility] Dec 20, 2024 03:00 PM [place] [facility] [place] [facility] Dec 27, 2024 03:00 PM [place] [facility] [place] [facility] Jan 03, 2025 03:00 PM [place] [facility] [place] [facility] February 15, 2025 07:00 PM [place] [facility] [place] [facility] Encounter Notes: All associated encounter notes This section contains the clinical notes associated to the Encounter. 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 would like to be called when medication has been ordered thank you. lisdexamphetamine. /carolynn/ KAIDEN SEGAL ADVANCED CHART CLERK Signed: 11/23/2024 09:19 Receipt Acknowledged By: 11/23/2024 09:28 /lydia TOURE Registered Nurse 11/23/2024 11:52 /carolynn/ JOAO LADD M.D. 11/23/2024 ADDENDUM STATUS: COMPLETED I left a HIPPA compliant message that med has been ordered. /lydia TOURE Registered Nurse Signed: 11/23/2024 09:29 KAIDEN SEGAL
--- OUTSIDE RECORDS SUMMARY | 2024-12-14 06:43 | XMS_ITS ---
Author Organization Michele Alexander III, MD Address [address] [place] [address] Care Team Providers Care Loom Technician Name Role Phone Michele Alexander Primary Care Provider Allergies Allergen (clinical drug ingredient) Drug/Non Drug Allergy documented on EMR Reaction Allergy Type Onset Date Status Pollen Pollen Unknown Allergy Active REASON FOR VISIT Pubic folliculitis, obesity, Hearing loss, Hypertension, Benign prostatic hypertrophy Medications Medication SIG (Take, Route, Frequency, Duration) Notes Start Date End Date Status Naproxen 500 MG TAKE 1 TABLET BY MOUTH EVERY 12 HOURS Orally every 12 hrs Active Vyvanse 50 MG 1 capsule in the morning Orally Once a day Active Metoprolol Succinate ER 100 MG TAKE 1 TABLET BY MOUTH EVERY DAY Active Lisinopril 40 MG 1 tablet Orally Once a day 09/13/2023 Active Viagra 100 MG 1 tablet as needed Orally Once a day 01/31/2019 Active Triamcinolone Acetonide 0.1 % 1 application Externally twice a day for 14 days 09/18/2024 Active Zepbound 7.5 MG/0.5ML 0.5 mL Subcutaneou s weekly dispense 4 pens 07/03/2024 Active Social History Tobacco Use: Social History Observation Description Date Details (start date - stop date) Never Smoker NA - NA Sex Assigned At : Social History Observation Description Sex Assigned At Male Tobacco Use/Smoking Question Answer Notes Patient is a nonsmoker Additional Findings: Tobacco Non-User Aggressive non-smoker Vital Signs Temperature 98.8 degrees Fahrenheit 11/13/19 25 Blood pressure systolic 140 mm Hg 11/13/19 25 Blood pressure diastolic 78 mm Hg 025 Heart Rate 63 /min 11/13/2024 Height 70 in 11/13/2024 Weight 257 lbs 11/13/2024 BMI 36.87 kg/m2 11/13/2024 Encounters Encounter Location Date Provider Diagnosis Michele Alexander III, MD [address] [place] [address] [place], [place] [id number] 11/13/2024 Michele Alexander BPH (benign prostati c hyperplasia) N40.0 ; Other obesity due to excess calories E66.09 ; Sensorineural hearing loss (SNHL) of right ear with unrestricted hearing of left ear H90.41 ; Right knee pain M25.561 ; Sleep apnea G47.30 and Essential hypertension I10 Assessments Encounter Date Diagnosis (ICD Code) Assessment Notes Treat ment Notes Treatment Clinical Notes 11/13/2024 BPH (benign prostatic hyperplasia) (ICD-10 - N40.0) We have discussed lifestyle modifications which are reduced nocturnal urinating. He rises on the average of once a night. No change in his regimen was needed. 11/13/2024 Other obesity due to excess calories (ICD-10 - E66.09) He has lost 12 pounds since his last visit. He was continued on current medication without change. Follow-up was arranged. 11/13/2024 Sensorineural hearing loss (SNHL) of right ear with unrestricted hearing of left ear (ICD-10 - H90.41) There is nothing in his history other than his employment in the [employer] that would cause hearing loss. 11/13/2024 Right knee pain (ICD-10 - M25.561) His knee pain is mild to moderate and does not interfere with work. He uses ibuprofen and Tylenol and rest. 11/13/2024 Sleep apnea (ICD-10 - G47.30) He says he is using his CPAP machine and likes it very much. He has one for home and one for travel. 11/13/2024 Essential hypertension (ICD-10 - I10) His blood pressure is coming under control. He is continuing his efforts is sodium restriction weight loss and physical activity. He finds the arthritis in his right knee eliminating his activity. We discussed her weight reduction diet at length. Plan Of Treatment Medication Medication Name Sig Start Date Stop Date Notes Naproxen 500 MG TAKE 1 TABLET BY AVEL TH EVERY 12 HOURS Orally every 12 hrs Vyvanse 50 MG 1 capsule in the morning Orally Once a day Metoprolol Succinate ER 100 MG TAKE 1 TABLET BY MOUTH EVERY DAY Lisinopril 40 MG 1 tablet Orally Once a day 09/13/2023 Viagra 100 MG 1 tablet as needed Orally Once a day 01/31/2019 Triamcinolone Acetonide 0.1 % 1 application Externally twice a day for 14 days 09/18/2024 Zepbound 7.5 MG/0.5ML 0.5 mL Subcutaneou s weekly 07/03/2024 dispense 4 pens Next Appt Details Follow Up: 4 Weeks, Reason: ov Provider Name:Michele Alexander, 12/15/2024 03:15:00 PM, [address] [place] [address] [address], [place], [id number], Provider Name:Michele Alexander, 05/15/2025 04:00:00 PM, [address] [place] [address] [address], [place], [id number], Progress Notes * Edgar HANKINS RDOB:1970 (53 yo M)Acc No.[id number]:11/13/2024 Progress Notes Patient:?ALIYAH Edgar Del Cid Provider:?Michele Alexander MD :1970???Age:53 Y???Sex:Male Michael e:11/13/2024 Address:[address] [place] [address] [id number] Subjective: * Chief Complaints: * ???Pubic folliculitisObesity Hearing lossHypertensionBenign prostatic hypertrophy * HPI: ???COVID-19 Screening:?Questions?Have you had any new onset fever, chills, cough, congestion, sore throat, shortness of breath, muscle aches??No ???:? The patient, a 53-year-old male, has been experiencing intermittent itchiness in various parts of his body, including his groin area and the tip of his breast bone. The itchiness seems to occur randomly and is particularly noticeable at night. The patient has also noticed a mass near his breast bone, which he describes as a 'gigantic mass'. He has been losing weight, which has been stagnant for a week or two before dropping a pound or half a pound. The patient has been injecting a certain medicine every week, the dosage of which is 7.57 point 5 MGS. The patient has also been experiencing dry skin, which he attributes to the winter season. The patient has been shaving his groin area and has noticed some folliculitis. The patient has not had any sexual contacts recently. * ROS:?General/Constitutional:?pain?only normal aches and pains.?Chills?denies.?Fatigue?admits.?Fever?denies.?ENT:?Decreased hearing?in the right ear.?Respiratory:?Cough?denies.?Cardiovascular:?Chest pain with exertion?denies.?Dyspnea on exertion?denies.?Shortness of breath?denies.?Gastrointestinal:?Constipation?denies.?Decreased appetite?denies.?Diarrhea?denies.?Heartburn?occasional.?Nausea?denies.?Rectal bleeding?denies.?Vomiting?denies.?Hematology:?bruising?denies.?petechiae?denies.?Swollen glands?none have been noted.?Genitourinary:?Frequent urination?once a night.?Musculoskeletal:?Muscle aches?denies.?Painful joints?denies.?Sciatica?denies.?Weakness?denies.?Skin:?Itching?denies.?Rash?denies.?Skin lesion(s)?denies.?Neurologic:?Difficulty speaking?denies.?Dizziness?denies.?Headache?denies.?Low back pain?denies.?Psychiatric:?Depressed mood?denies.? * Medical History:? * Surgical History:?colonoscop y ight knee replacement surgery, [facility] 05/2022left knee replacement surgery, [facility] 07/2022No history * Hospitalization/Major Diagno stic Procedure:?No history * Family History:?Father: ladan sanders 64 yrs, [...] Tobacco Non-User?Aggressive non-smoker ???He was born in [place], [place]. 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 He is with children. He has no worship objection to blood transfusion. 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 * Medications:?TakingMetoprolo l Succinate ER 100 MG Tablet Extended Release 24 Hour TAKE 1 TABLET BY MOUTH EVERY DAY Vyvanse 50 MG Capsule 1 capsule in the morning Orally Once a day Viagra 100 MG Tablet 1 tablet as needed Orally Once a day Lisinopril 40 MG Tablet 1 tablet Orally Once a day Zepbound 7.5 MG/0.5ML Solution Auto-injector 0.5 mL Subcutaneous weekly , Notes to Pharmacist: dispense 4 pensTriamcinolone Acetonide 0.1 % Cream 1 application Externally twice a day Naproxen 500 MG Tablet TAKE 1 TABLET BY MOUTH EVERY 12 HOURS Orally every 12 hrs Medication List reviewed and reconciled with the patientTaking Metoprolol Succinate ER 100 MG Tablet Extended Release 24 Hour TAKE 1 TABLET BY MOUTH EVERY DAY Taking Vyvanse 50 MG Capsule 1 capsule in the morning Orally Once a day Taking Viagra 100 MG Tablet 1 tablet as needed Orally Once a day Taking Lisinopril 40 MG Tablet 1 tablet Orally Once a day Taking Zepbound 7.5 MG/0.5ML Solution Auto-injector 0.5 mL Subcutaneous weekly , Notes to Pharmacist: dispense 4 pensTaking Triamcinolone Acetonide 0.1 % Cream 1 application Externally twice a day Taking Naproxen 500 MG Tablet TAKE 1 TABLET BY MOUTH EVERY 12 HOURS Orally every 12 hrs Medication List reviewed and reconciled with the patient * Allergies:?Pollenno[Allergie s Verified] Objective: * Vitals:?Ht: 70, Wt: 257, BMI :36.87, BP: 140/78, HR: 63, Temp: 98.8, Ht-cm: 177.8, Wt-k.57. * Examination: ???General Examination: ?GENERAL APPEARANCE:?pleasant, well [...] lower extremities, sensory exam intact.?PSYCH:?alert, oriented.? : ???undefined. ??? Assessment: * Assessment: 1.?Other obesity due to exce ss calories - E66.09 (Primary)???Notes :He has lost 12 pounds since his last visit. He was continued on current medication without change. Follow-up was arranged.???2.?BPH (benign prostatic hyperplasia) - N40.0???Notes :We have discussed lifestyle modifications which are reduced nocturnal urinating. He rises on the average of once a night. No change in his regimen was needed.???3.?Sensorineural hearing loss (SNHL) of right ear with unrestricted hearing of left ear - H90.41???Notes :There is nothing in his history other than his employment in the [employer] that would cause hearing loss.???4.?Right knee pain - M25.561???Notes :His knee pain is mild to moderate and does not interfere with work. He uses ibuprofen and Tylenol and rest.???5.?Sleep apnea - G47.30???Notes :He says he is using his CPAP machine and likes it very much. He has one for home and one for travel.???6.?Essential hypertension - I10???Notes :His blood pressure is coming under control. He is continuing his efforts is sodium restriction weight loss and physical activity. He finds the arthritis in his right knee eliminating his activity. We discussed her weight reduction diet at length.??? Plan: * Treatment: 2.?Others? Continue Naproxen Tablet, 500 MG, TAKE 1 TABLET BY MOUTH EVERY 12 HOURS, Orally, every 12 hrs.?? * Procedure Codes:? * Preventive Medicine:? ??Counseling:?Care [...] or Other reason not done * Follow Up:?4 Weeks (Reason: ov) * Images: * Sign off status: Completed true * Provider:?Michele Alexander MD Date:?11/04 Generated for Ramya montez/El/eTransmitting on:?12/14/2024 06:43 AM EDT History and Physical Notes * [...]
--- OUTSIDE RECORDS SUMMARY | 2024-12-14 06:43 | XMS_ITS | Data Portability ---
Author Organization [place] - [facility], [facility] Office Address [address] [place] [address] Care Team Providers Care Physician President Name Role Phone JASON ALMANZA Primary Care Provider [phone] Assessment Encounter Date Assessment Date Assessment LastModified by Organization Details LastModified Time 09/14/2022 09/14/2022 Imaging: Radiographs obtained in the office on 09/14/2022 including AP standing/PA flexion of the bilateral knees and 2 additional views of each knee were reviewed. These demonstrate well-seated bilateral total knee arthroplasties in appropriate alignment without evidence of fracture or lucency. Assessment: Status post right TKA 05/22/2022 and status post left TKA 07/30/2022. Plan: Findings were reviewed with the patient. Overall I am extremely pleased with his progress. Discussed that it is extremely reasonable for him to return to full duty beginning in October. He will continue with PT for additional work hardening. Dental prophylaxis was discussed and a prescription for amoxicillin was provided. He will follow up in three months for repeat evaluation. The patient is in agreement with this plan. All questions were answered. The patient was seen and examined with Patrice Martines M.D. Dictated by Annalise Agrawal PA-C for Patrice Martines M.D. [email or web address] Not available 09/14/2022 16:23:29 07/28/2023 07/28/2023 ASSESSMENT: Mr. Hankins, a 52-year-old male, presents with a history of bilateral knee surgery. He has been experiencing pain for approximately 4 months, which he has been managing with home exercises and additional physical therapy. The patient has a history of muscular issues and joint pain. He has been working on strengthening and increasing flexibility. The patient also mentions a history of suture-related allergic reactions. He has been advised to apply hydrocortisone cream to manage the itchiness. Radiographs of the patient's knees were taken, which demonstrate good healing with some bridging bone across the joint. There is approximately 70% or more coverage, indicating a three-dimensional image. There is fixation in most of the joint, which is a positive sign. There is a small space in the joint, but it has filled in significantly. The patient's previous radiographs show a line that has now filled in, indicating healing. Half of the joint surface is touching the bone in the back, and the other half is in the middle. There is a small visible line, but it is not a concern as the other areas are covering for it. PLAN: - Continue home exercises and physical therapy - Apply hydrocortisone cream to manage itchiness from suture-related allergic reactions - Follow-up appointment in 5 years - Obtain radiographs a few days or a week before the next appointment - Possible telehealth appointment for the next follow-up [email or web address] Not available 07/28/2023 09:28:26 Plan of Treatment Reminders Order Date Submit Date Provider Last Modified By Organization Details Last Modified Time Details Appointments None record ed. Lab None record ed. Referral None record ed. Procedures None record ed. Surgeries None record ed. Imaging None record ed. Medication Orders None record ed. Patient TargetsNo targets recorded. Patient InstructionsNo instructions recorded. Reason for Referral None Reported. Results Created Date Observation Date Name Description Value Unit Range Abnormal Flag Note LastModifiedBy Organization Detail LastModifiedTime 05/20/20 22 05/20/2022 KCOVI D19 covid-19 by PCR INTERP RETIVE INFORM ATION: 2019 Novel Chambers virus SARS-C oV-2 Not Available [facility] (Lab) [address], [place], [address], 05/20/2022 09:55:54 05/20/2005/20/2022 KCOVI D19 covid-19 by PCR by PCR. This test has been valida all but FDA's indepe ndent Not Available [facility] (Lab) [address], [place], [address], 05/20/2022 09:55:54 05/20/20 22 05/20/2022 KCOVI D19 covid-19 by PCR review of this valida tion is conrado quiroz Not Available [facility] (Lab) [address] [place], [address], 05/20/2022 09:55:54 05/20/20 22 05/20/2022 KCOVI D19 covid-19 by PCR Not Available [facility] (Lab) [address] [place], [address], 05/20/2022 09:55:54 05/20/20 22 05/20/2022 KCOVI D19 covid-19 by PCR For update d griffin ation, refer to the [facility] Not Available [facility] (Lab) [address] [place], [address], 05/20/2022 09:55:54 05/20/20 22 05/20/2022 KCOVI D19 covid-19 by PCR [place] e: www.cd c.gov/ chambers virus Not Available [facility] (Lab) [address], [place], [address], 05/20/2022 09:55:54 05/20/20 22 05/20/2022 KCOVI D19 covid-19 by PCR Not Available [facility] (Lab) [address] [place], [address], 05/20/2022 09:55:54 05/20/20 22 05/20/2022 KCOVI D19 covid-19 by PCR Test cris lazaro and nguyễn wu by PCR. Not Available [facility] (Lab) [address] [place], [address], 05/20/2022 09:55:54 05/20/20 22 05/20/2022 KCOVI D19 covid-19 by PCR COVID- 19 COVID- 19 NOT DETECT ED (NEGAT HEATHER) normal Not Available [facility] (Lab) [address] [facility] [address], [place], [address], 05/20/2022 09:55:54 05/22/2005/22/2022 SURG surgical specimens Case No :[id number] Parker nt: CIRA HOLLIS,CONSTANTINE Montgomery Physi susana: Hola butterfield MD,An [facility] Rec: [id number] : [birth year] Loc: L5 961 Age/S ex: 51/M Proc Date: 05/22 Recd Date: 05/25 CLINI ERIN HISTO RY:Os teoar thrit is right knee. Tissu e Sourc e: Right knee bone and soft tissu e ----- ----- ----- ----- ----- ----- ----- ----- ----- ----- ----- ----- ----- ----- ----- ----- ----- ----- -- FINAL DIAGN OSIS Lillie montgomery knee joint : Jarrod pradhan consi stent with osteo arthr itis (chet s descr iptio n only) . ----- ----- ----- ----- ----- ----- ----- ----- ----- ----- ----- ----- ----- ----- ----- ----- ----- ----- -- GROSS DESCR IPTIO N The speci men is recei brett fresh , label ed with the parker esqueda's name and righ t knee bone and tissu e . It consi sts of multi ple fragm ents of bone and soft tissu e measu ring in aggre gate 11.5 x 11 x 4 cm. Among the bony fragm ents, porti ons of tibia l plate au and femor al condy les are ident ified . The artic ular surfa kasey show areas of eburn ation , with the remai sabino westi donaldo being rough and velve ty. Osteo phyto sis is seen. Upon secti oning the soft tissu e, no nodul es are ident ified . Gross only. Sandra d ___(E lectr jerry alfreda schafer d)___ _ VIVIAN MARADIAGA M.D. 05/25 ----- ----- ----- ----- ----- ----- ----- ----- ----- ----- ----- ----- ----- ----- ----- ----- ----- ----- -- END OF REPOR T Not Available [facility] (Lab) [address] [place], [address], 05/25/2022 17:39:52 05/23/2005/23/2022 CBC white blood count 15.69 K/uL 4.0-11 .0 high Not Available [facility] (Lab) [address] [place], [address], 05/23/2022 07:33:50 05/23/20 22 05/23/2022 CBC red blood count 4.58 M/uL 4.20-5 .80 normal Not Available [facility] (Lab) [address] [place], [address], 05/23/2022 07:33:50 05/23/20 22 05/23/2022 CBC hemoglobin 13.3 g/dL 14.0-1 7.0 low Not Available [facility] (Lab) [address] [place], [address], 05/23/2022 07:33:50 05/23/20 22 05/23/2022 CBC hematocrit 39.8 % 42.0-5 1.0 low Not Available [facility] (Lab) [address] [place], [address], 05/23/2022 07:33:50 05/23/20 22 05/23/2022 CBC MCV 86.9 fL 80.0-9 8.0 normal Not Available [facility] (Lab) [address] [place], [address], 05/23/2022 07:33:50 05/23/20 22 05/23/2022 CBC MCH 29.0 pg 27.0-3 4.0 normal Not Available [facility] (Lab) [address] [place], [address], 05/23/2022 07:33:50 05/23/20 22 05/23/2022 CBC MCHC 33.4 g/dL 31.0-3 6.0 normal Not Available [facility] (Lab) [address] [place], [address], 05/23/2022 07:33:50 05/23/20 22 05/23/2022 CBC platelet 194 K/uL 150-40 0 normal Not Available [facility] (Lab) [address] [place], [address], 05/23/2022 07:33:50 05/23/20 22 05/23/2022 CBC RDW-CV 13.0 % 11.5-1 4.5 normal Not Available [facility] (Lab) [address] [place], [address], 05/23/2022 07:33:50 05/23/20 22 05/23/2022 CBC nucleated absolute value 0.00 K/uL normal Not Available [facility] (Lab) [address] [place], [address], 05/23/2022 07:33:50 05/23/20 22 05/23/2022 NA sodium 141 mmol/ L 135-14 5 normal Not Available [facility] (Lab) [address] [place], [address], 05/23/2022 09:34:58 05/23/20 22 05/23/2022 K potassium 4.1 mmol/ L 3.5-5. 3 normal Not Available [facility] (Lab) [address] [place], [address], 05/23/2022 09:34:59 05/23/20 22 05/23/2022 CR creatinine 0.8 mg/dL 0.0-1. 3 normal Not Available [facility] (Lab) [address] [place], [address], 05/23/2022 09:35:00 05/23/20 22 05/23/2022 MG magnesium 1.8 mg/dL 1.6-2. 6 normal Not Available [facility] (Lab) [address] [place], [address], 05/23/2022 09:35:00 05/23/20 22 05/23/2022 AOT add on test-lab Receiv ed Reques t normal Not Available [facility] (Lab) [address] [place], [address], 05/23/2022 09:15:44 07/28/20 22 07/28/2022 KCOVI D19 covid-19 by PCR INTERP RETIVE INFORM ATION: 2019 Novel Chambers virus SARS-C oV-2 Not Available [facility] (Lab) [address] [place], [address], 07/28/2022 11:52:38 07/28/20 22 07/28/2022 KCOVI D19 covid-19 by PCR by PCR. This test has been valida all but FDA's indepe ndent Not Available [facility] (Lab) [address] [place], [address], 07/28/2022 11:52:38 07/28/20 22 07/28/2022 KCOVI D19 covid-19 by PCR review of this valida tion is conrado quiroz Not Available [facility] (Lab) [address] [place], [address], 07/28/2022 11:52:38 07/28/20 22 07/28/2022 KCOVI D19 covid-19 by PCR Not Available [facility] (Lab) [address] [place], [address], 07/28/2022 11:52:38 07/28/2007/28/2022 KCOVI D19 covid-19 by PCR For update d inform ation, refer to [facility] Not Available [facility] (Lab) [address], [place], [address], 07/28/2022 11:52:38 07/28/20 22 07/28/2022 KCOVI D19 covid-19 by PCR Contro l марина e: www.cd c.gov/ chambers virus Not Available [facility] (Lab) [address], [place], [address], 07/28/2022 11:52:38 07/28/20 22 07/28/2022 KCOVI D19 covid-19 by PCR Not Available [facility] (Lab) [address], [place], [address], 07/28/2022 11:52:38 07/28/20 22 07/28/2022 KCOVI D19 covid-19 by PCR Test cris lazaro and nguyễn wu by PCR. Not Available [facility] (Lab) [address] [place], [address], 07/28/2022 11:52:38 07/28/20 22 07/28/2022 KCOVI D19 covid-19 by PCR COVID- 19 COVID- 19 NOT DETECT ED (NEGAT HEATHER) normal Not Available [facility] (Lab) [address], [place], [address], 07/28/2022 11:52:38 07/30/2007/30/2022 SURG surgical specimens Case No :[id number] [id number] Patitommy nt: CIRA HOLLIS,CONSTANTINE Montgomery Physi susana: Hola butterfield MD,An [facility] Rec: [id number] : [birth year] Loc: 5E 689 Age/S ex: 51/M Proc Date: 07/30 Recd Date: 07/30 CLINI ERIN HISTO RY:Os teoar thrit is left knee. Tissu e Sourc e: Left knee bone and soft tissu e ----- ----- ----- ----- ----- ----- ----- ----- ----- ----- ----- ----- ----- ----- ----- ----- ----- ----- -- FINAL DIAGN OSIS Left knee joint : Jarrod pradhan consi stent with osteo arthr itis (chet s descr iptio n only) . ----- ----- ----- ----- ----- ----- ----- ----- ----- ----- ----- ----- ----- ----- ----- ----- ----- ----- -- GROSS DESCR IPTIO N The speci men is recei brett fresh , label ed with the parker nt's name and left knee bone and tissu e . It consi sts of multi ple fragm ents of bone and soft tissu e measu ring in aggre gate 11.5 x 11 x 4 cm. Among the bony fragm ents, porti ons of tibia l plate au and femor al condy les are ident ified . The artic ular surfa kasey show areas of eburn ation , with the remai sabino westi donaldo being rough and velve ty. Osteo phyto sis is seen. Upon secti oning the soft tissu e, no nodul es are ident ified . Gross only. Sandra d ___(E lectr sanketori alfreda sandra d)___ _ VIVIAN MARADIAGA M.D. 07/30 ----- ----- ----- ----- ----- ----- ----- ----- ----- ----- ----- ----- ----- ----- ----- ----- ----- ----- -- END OF REPOR T Not Available [facility] (Lab) [address], [place], [address], 07/30/2022 17:45:27 03/12/20 22 03/11/2022 MRI, knee, w/o contr ast No observ ation record ed. [email or web address] [facility] ([facility]) [address], [place], [address], 03/13/2022 07:27:02 04/07/20 22 04/07/2022 XR, knee http:/ [email or web address]/I ntegra tionPr ocesso [email or web address] ?CMD=O RANDEE DY&ACC ESSION =[id number] [email or web address] [facility] [address] [place] [address], [address], 04/07/2022 15:09:53 05/08/20 22 05/08/2022 leg2+ joint s surve y 3FT Robe al Report EXAM#: [id number] PROCED URE: OSMAN 0122 XR LEG2+ JOINTS SURVEY 3FT May 08 2022 1:31PM CLINIC AL INDICA TION: unilat eral primar y osteoa rthrit is right knee Compar maricel: Knee radiog raphs from 04/07/20 22. FINDIN GS: No signif icant pelvic tilt. Right hip superi or joint space narrow ing, eburna tion and margin al osteop hytes are compat ible with osteoa rthrit is. Left hip superi or joint space narrow ing, eburna tion and margin al osteop hytes are compat ible with osteoa rthrit is. Right knee severe medial and latera l tibiof emoral joint space narrow ing, eburna tion and margin al osteop hytes are compat ible with osteoa rthrit is. Left knee medial compar tment joint space narrow ing, eburna tion and margin al osteop hytes are compat ible with osteoa rthrit is. The ankle joints demons trate normal alignm ent. NUMBER OF IMAGES : 5 Report ed by : BARRERA TSAI M.D. On: May 08 2022 1:43P Signed by: BARRERA STARKEY M.D. On: May 08 2022 1:48P [email or web address] [facility] [address], [place], [address], 05/11/2022 09:58:38 07/22/20 22 07/22/2022 leg2+ joint s surve y 3FT Fin al Report EXAM#: [id number] PROCED URE: OSMAN 0122 XR LEG2+ JOINTS SURVEY 3FT Jul 22 2022 11:15A M CLINIC AL INDICA TION: left knee oa There is a right TKA in place. Degene rative change s are presen t in the left knee with comple te loss of the medial joint compar tment space and cortic al irregu larity of the articu lar surfac es of the medial and latera l joint compar tments . There is a right TKA in place. Degene rative change s are presen t in both hips with cephal ad migrat ion of the femora l head in relati onship to the acetab ulum. The ankle joints are unrema rkable . NUMBER OF IMAGES : 5 Report ed by : JUANPABLO BALLARD M.D. On: Jul 22 2022 3:16P Signed by: JUANPABLO BALLARD M.D. On: Jul 22 2022 3:16P [email or web address] [facility] [address] [place], [address], 07/22/2022 15:23:29 07/28/20 23 07/28/2023 xr knees bilat 3 views Fin al Report EXAM#: [id number] PROCED URE: DXR 0106 XR KNEES BILAT 3 VIEWS Jul 28 2023 9:15AM CLINIC AL INDICA TION: pain in b/l knees ADDITI ONAL INDICA TION: None COMPAR MARICEL: 2021 FINDIN GS: There are bilate ral knee arthro plasti es in place with patell ar resurf acing. No eviden ce of hardwa re compli cation is seen. There are small bilate ral knee joint effusi ons. No osseou s lesion is identi fied. No soft tissue abnorm ality is seen. NUMBER OF IMAGES : 4 Report ed by : ABDULLAHI DIAZ M.D. On: Jul 28 2023 9:34A Signed by: ABDULLAHI DIAZ M.D. On: Jul 28 2023 9:34A [facility] [address] [place], [address], 07/28/2023 16:53:11 Result Notes None recorded. Procedures Surgical History Date Name Laterality Status Provider Name and Address Organization Details Recorded Time 2 Orthopaedic Surgery completed Terrance Barr [facility] 09/14/2022 15:57:15 2 Orthopaedic Surgery completed Saloni Harding [facility] 06/22/2022 09:36:10 2 Other completed Rober Barajas [facility] 07/28/2023 09:10:35 8 Orthopaedic Surgery completed Ninfa Bean [facility] 12/19/2021 10:57:26 Imaging Results Imaging Date Name Status LastModified by Organiz [facility] Details LastModified Time 03/11/2022 MRI, knee, w/o contrast completed [email or web address] [facility] [address], [place], [address], 03/13/2022 07:27:02 04/07/2022 XR, knee completed [email or web address] [facility] [address] [address], [place], [address], 04/07/2022 15:09:53 05/08/2022 leg2+ joints survey 3FT completed [email or web address] [facility] [address] [place], [address], 05/11/2022 09:58:38 07/22/2022 leg2+ joints survey 3FT completed [email or web address] [facility] [address] [place], [address], 07/22/2022 15:23:29 07/28/2023 xr knees bilat 3 views completed [email or web address] [facility] [address] [place], [address], 07/28/2023 16:53:11 Procedure Notes None recorded. Medical Equipment None Reported. Allergies Allergen ID Allergen Name Allergen Category Reaction Reaction Severity Criticality Documentation Date Start Date Code Code System Note Provider Name and Address Organization Details Recorded Time 902753 POLL[employer] environme nt,medica tion Not available Not available Not available 12/19/2021 52740 6 RxNorm Ninfa sethi [place] - [facility] 10:54:31 Medications Name Sig Start Date Stop Date Status Note LastModified by Organization Details LastModified Time celecoxib 200 mg capsule TAKE 1 CAPSULE BY MOUTH EVERY DAY 09/14 completed Not Available Not Available Not Available amoxicill in 500 mg capsule TAKE 4 CAPSULES BY MOUTH 1 HOUR BEFORE DENTAL PROCEDUR E active Not Available Not Available No t Available metoprolo l succinate ER 50 mg tablet,ex tended release 24 hr TAKE 1 TABLET BY MOUTH EVERY DAY active Not Available Not Available No t Available prednison e 20 mg tablet TAKE 1 TABLET BY MOUTH EVERY DAY IN THE MORNING WITH FOOD FOR 10 DAYS active Not Available Not Available No t Available clonazepa m 0.5 mg tablet TAKE 1 TABLET BY MOUTH AT BEDTIME 07/27 completed Not Available Not Available Not Available ciproflox acin 500 mg tablet TAKE 1 TABLET BY MOUTH EVERY 12 HOURS FOR 7 DAYS 04/07 completed Not Available Not Available Not Available sildenafi l 100 mg tablet TAKE 1 TABLET BY MOUTH EVERY DAY NEEDED active Not Available Not Available No t Available hydromorp edwin 2 mg tablet TAKE 1 TO 2 TABLETS BY MOUTH EVERY 4 HOURS NEEDED POSTOP PAIN TAKE LOWEST DOSE NECESSAR Y FOR PAIN CONTROL 09/14 completed Not Available Not Available Not Available celecoxib 100 mg capsule TAKE 1 CAPSULE BY MOUTH TWICE DAILY. START AFTER INTRAVEN OUSLY KETOROLA C IS COMPLETE 12/14 completed Not Available Not Available Not Available naproxen 500 mg tablet TAKE 1 TABLET BY MOUTH EVERY 12 HOURS WITH FOOD OR MILK NEEDED active Not Available Not Available No t Available Vyvanse 50 mg capsule TAKE 1 CAPSULE BY MOUTH EVERY MORNING active Not Available Not Available No t Available Eliquis 2.5 mg tablet TAKE 1 TABLET BY MOUTH TWICE DAILY. START POD 1 09/14 completed Not Available Not Available Not Available Zilretta 32 mg intra-art icular suspensio n,extende d release Take 5 mL by intraart icular route. 04/07 completed LT Knee Zilretta injectio n Not Available Not Available Not Available BinaxNOW COVID-19 Ag Self Test kit TEST DIRECTED TODAY active Not Available Not Available No t Available Paxlovid 300 mg (150 mg x 2)-100 mg tablets in a dose pack TK 2 NIRMATRE LVIR TS AND 1 RITONAVI R T TOGETHER PO TWICE DAILY active Not Available Not Available No t Available Vitals Date Recorded Body height Body mass index (BMI) Body weight Provider Name and Address Organization Details Last Updated DateTime 04/07/2022 180.34 cm 38.4 kg/m2 547760.9 g Jyoti Valdez [place] - [facility] 04/07/2022 13:09:23 Date Recorded Body height Body mass index (BMI) Body weight Provider Name and Address Organization Details Last Updated DateTime 06/22/2022 180.34 cm 38.4 kg/m2 999462.9 g Saloni Harding [facility] 06/22/2022 09:35:36 Date Recorded Body height Provider Name an d Address Organization Details Last Updated DateTime 09/14/2022 180.34 cm Terrance Barr [facility] 09/14/2022 15:55:37 Date Recorded Body height Provider Name an d Address Organization Details Last Updated DateTime 12/14/2022 180.34 cm PATRICE Coombs [address] [place] [address], [phone], [facility] 12/14/2022 15:46:12 Date Recorded Body height Provider Name an d Address Organization Details Last Updated DateTime 07/28/2023 180.34 cm Rober Barajas [facility] 07/28/2023 09:10:38 Social History Question Answer Notes LastModified by Organizat ion Details LastModified Time Tobacco Smoking Status [facility] 12/19/2021 10:54:12 What Is Your Level Of Alcohol Consumption? Occasional Information not available 12/19/2021 What Is Your Level Of Caffeine Consumption? Moderate Information not available 12/19/2021 Are You Currently Employed? Yes [email or web address] Information not available 07/28/2023 Do You Or Have You Ever Used E-cigarettes Or Vape? 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 Yes Bilat Knee Information not available 12/19/2021 Do You Or Have You Ever Used Smokeless Tobacco? Never Used Smokeless Tobacco Information not available 12/19/2021 How Much Tobacco Do You Smoke? No [email or web address] Information not available 07/28/2023 What Types Of Sporting Activities Do You Participate In? Kayaking, Hiking, Backpacking Information not available 12/19/2021 How Many Years Have You Smoked Tobacco? 0 Information not available 12/19/2021 Sex: Unknown Functional Status Question Answer Note LastModified by Organization D etails LastModified Time What is your exercise level? Moderate Information not available 12/19/2021 Mental Status None recorded. Family History Relationship Description Onset Age of this Age Resolved Age Notes LastModified by Organization Details LastModified Time Father No current problems or disability blarow Not available 04/07 13:09:55 Mother No current problems or disability blarow Not available 04/07 13:09:55 Medical History Condition Response Blood Clots / Phlebitis N HIV or AIDS N Heart Problems N High Blood Pressure Y Depression or Anxiety N Irregular Heartbeat N MRSA N Emphysema / Chronic Bronchitis N Any Other Significant Medical Issues Y Reaction to General/Local Anesthesia N Hepatitis / Jaundice N Weight Gain / Loss N Kidney / Bladder Infections N Diabetes N Bleeding Disorder N Hearing Loss N Angina, Heart Failure or Attack N Night Sweats N Seizures / Epilepsy N Osteoarthritis / Rheumatoid arthritis / Other Y Cancer N Stroke N Chemical Dependency / Alcoholism N Ulcer / Stomach Bleeding / Indigestion N Visual Loss or Glaucoma N Psoriasis / Skin Rash N Thyroid Disorder N Heart Disease N Asthma / Shortness of Breath / Sleep Interactive Digital Media Specialist ea (please specify) N Pulmonary Embolism N Immunizations Vaccine Type Date Status Note Provider Nam e and Address Organization Details Recorded Time SARS-COV-2 (COVID-19) vaccine, UNSPECIFIED 10/17/2020 completed Ninfa sethi [facility] 12/19/2021 10:56:23 SARS-COV-2 (COVID-19) vaccine, UNSPECIFIED 11/14/2020 [facility] 12/19/2021 10:56:28 SARS-COV-2 (COVID-19) vaccine, UNSPECIFIED 09/10/[address] 12/19/2021 10:56:32 Past Encounters Encounter ID Performer Location Encounter Start Date Encounter Closed Date Diagnosis/Indication Diagnosis SNOMED-CT Code Diagnosis ICD10 Code Diagnosis Note [id number] ANNA AKTZ [facility] [address] [address] 12/19/2021 09:44:35 12/19/2021 11:37:35 Osteoarthritis of knee [id number] M17.0 [id number] ANNA KATZ [facility] 40 [facility],[address] [place] [address] 01/09/2022 07:41:14 01/09/2022 08:28:05 Osteoarthritis of knee [id number] M17.0 [id number] ANNA KATZ [facility] [address] [place] [id number] 02/19/2022 15:38:35 02/20/2022 15:34:41 Osteoarthritis of knee [id number] M17.12 [id number] ANNA KATZ [address] [address] 03/13/2022 14:55:14 03/16/2022 10:31:48 Osteoarthritis of right knee joint [id number] M17.11 [id number] PATRICE MARTINES MD [facility] [address] [place] [phone] 04/07/2022 12:42:01 04/07/2022 14:11:18 Bilateral osteoarthritis of knees [id number] 86667 M17.0 I reviewed with the patient at length. I discussed treatment options. He has tried greater than 3 months with a treatment of both of his knees. He continues to have pain. His right knee is worse although they are relatively similar at times. He is on his feet at work which is irritated and his pain and loss of function increase. He is a good candidate for total knee replacemen t on the right. We also discussed the left side. Given his lateral compartmen t narrowing I think he is appropriat e for total knee replacemen t on the left. I discussed surgeries with him at length. I reviewed the recovery process. I discussed risks of surgery, including but not limited to, infection fracture hardware failure for surgery continued pain stiffness nerve or vessel injury medical issue in the perioperat heather period at length discrepanc y. He understand s these risks. At this point he would like to proceed. Discussed single-sta ge bilateral knee replacemen ts. Given his weight and increased risk for complicati on my recommenda tion is to stage these. Given the schedule and then 10 weeks apart. We also discussed return to work. At that my estimation is that he will be out of work for [employer] david 3 to 4 months following his second side. He may be able to return to work sooner but we should at least plan for this timeframe. All of his questions were answered. He is satisfied with this plan. He is planning on scheduling soon as possible on the right side. Lastly he does that he has to wait 4 months from his last injection for surgery on the left. Thank you for including me in the care of this patient. Please do not hesitate to contact my office if you have any additional questions or concerns. The patient did complete the COVID-19 screening handout and was deemed healthy to move forward with this appointmen t. This visit is a face-to-fa ce visit during the COVID-19 pandemic Public Health Emergency. Based on my clinical judgment, I felt that this visit could not be provided safely and appropriat david via TeleHealth . Based on available informatio n prior to presentati on, the patient had a high risk of significan t worsening and potential functional impairment affecting ADLs if the visit was not completed today. The patient was seen in the office after following PPE use, Workforce Safety, Patient Safety and Infection Control protocols for all services provided today in accordance with [facility] and CDC guidelines . [id number] ANNA BENJAMIN [facility] [address] [place] [phone] 06/22/2022 09:21:35 06/22/2022 11:22:59 Osteoarthritis of right knee joint [id number] 54628 M17.11 The patient is doing very well s/p right TKA. We discussed reasonable activity at this point in recovery. The patient will continue to attend outpatient PT and wean from cane. The patient understand s to wait 90 days from the day of surgery before having dental work and was reminded of antibiotic prophylaxi s prior to dental procedures . The patient knows to follow-up at 4 months postop and agrees to call the office sooner with any new developmen ts, questions or concerns. [id number] PATRICE MARTINES MD [facility] [address] [place] [phone] 09/14/2022 15:13:00 09/14/2022 16:33:58 Bilateral osteoarthritis of knees [id number] M17.0 I reviewed with the patient at length. I discussed treatment options. He has tried greater than 3 months with a treatment of both of his knees. He continues to have pain. His right knee is worse although they are relatively similar at times. He is on his feet at work which is irritated and his pain and loss of function increase. He is a good candidate for total knee replacemen t on the right. We also discussed the left side. Given his lateral compartmen t narrowing I think he is appropriat e for total knee replacemen t on the left. I discussed surgeries with him at length. I reviewed the recovery process. I discussed risks of surgery, including but not limited to, infection fracture hardware failure for surgery continued pain stiffness nerve or vessel injury medical issue in the perioperat heather period at length discrepanc y. He understand s these risks. At this point he would like to proceed. Discussed single-sta ge bilateral knee replacemen ts. Given his weight and increased risk for complicati on my recommenda tion is to stage these. Given the schedule and then 10 weeks apart. We also discussed return to work. At that my estimation is that he will be out of work for approximat david 3 to 4 months following his second side. He may be able to return to work sooner but we should at least plan for this timeframe. All of his questions were answered. He is satisfied with this plan. He is planning on scheduling soon as possible on the right side. Lastly he does that he has to wait 4 months from his last injection for surgery on the left. Thank you for including me in the care of this patient. Please do not hesitate to contact my office if you have any additional questions or concerns. The patient did complete the COVID-19 screening handout and was deemed healthy to move forward with this appointmen t. This visit is a face-to-fa ce visit during the COVID-19 pandemic Public Health Emergency. Based on my clinical judgment, I felt that this visit could not be provided safely and appropriat david via TeleHealth . Based on available informatio n prior to presentati on, the patient had a high risk of significan t worsening and potential functional impairment affecting ADLs if the visit was not completed today. The patient was seen in the office after following PPE use, Workforce Safety, Patient Safety and Infection Control protocols for all services provided today in accordance with [facility] and CDC guidelines . [id number] PATRICE MARTINES MD [facility] [address] [place] [phone] 12/14/2022 14:20:57 12/14/2022 16:12:23 Bilateral osteoarthritis of knees [id number] 31824 M17.0 I reviewed with the patient at length. I discussed treatment options. He has tried greater than 3 months with a treatment of both of his knees. He continues to have pain. His right knee is worse although they are relatively similar at times. He is on his feet at work which is irritated and his pain and loss of function increase. He is a good candidate for total knee replacemen t on the right. We also discussed the left side. Given his lateral compartmen t narrowing I think he is appropriat e for total knee replacemen t on the left. I discussed surgeries with him at length. I reviewed the recovery process. I discussed risks of surgery, including but not limited to, infection fracture hardware failure for surgery continued pain stiffness nerve or vessel injury medical issue in the perioperat heather period at length discrepanc y. He understand s these risks. At this point he would like to proceed. Discussed single-sta ge bilateral knee replacemen ts. Given his weight and increased risk for complicati on my recommenda tion is to stage these. Given the schedule and then 10 weeks apart. We also discussed return to work. At that my estimation is that he will be out of work for approximat david 3 to 4 months following his second side. He may be able to return to work sooner but we should at least plan for this timeframe. All of his questions were answered. He is satisfied with this plan. He is planning on scheduling soon as possible on the right side. Lastly he does that he has to wait 4 months from his last injection for surgery on the left. Thank you for including me in the care of this patient. Please do not hesitate to contact my office if you have any additional questions or concerns. The patient did complete the COVID-19 screening handout and was deemed healthy to move forward with this appointmen t. This visit is a face-to-fa ce visit during the COVID-19 pandemic Public Health Emergency. Based on my clinical judgment, I felt that this visit could not be provided safely and appropriat david via TeleHealth . Based on available informatio n prior to presentati on, the patient had a high risk of significan t worsening and potential functional impairment affecting ADLs if the visit was not completed today. The patient was seen in the office after following PPE use, Workforce Safety, Patient Safety and Infection Control protocols for all services provided today in accordance with [facility] and CDC guidelines . [id number] PATRICE MARTINES MD [facility] 40 [facility] [address] [place] [address] 07/28/2023 08:49:48 07/28/2023 09:38:48 Bilateral osteoarthritis of knees [id number] M17.0 I reviewed with the patient at length. I discussed treatment options. He has tried greater than 3 months with a treatment of both of his knees. He continues to have pain. His right knee is worse although they are relatively similar at times. He is on his feet at work which is irritated and his pain and loss of function increase. He is a good candidate for total knee replacemen t on the right. We also discussed the left side. Given his lateral compartmen t narrowing I think he is appropriat e for total knee replacemen t on the left. I discussed surgeries with him at length. I reviewed the recovery process. I discussed risks of surgery, including but not limited to, infection fracture hardware failure for surgery continued pain stiffness nerve or vessel injury medical issue in the perioperat heather period at length discrepanc y. He understand s these risks. At this point he would like to proceed. Discussed single-sta ge bilateral knee replacemen ts. Given his weight and increased risk for complicati on my recommenda tion is to stage these. Given the schedule and then 10 weeks apart. We also discussed return to work. At that my estimation is that he will be out of work for [employer] 3 to 4 months following his second side. He may be able to return to work sooner but we should at least plan for this timeframe. All of his questions were answered. He is satisfied with this plan. He is planning on scheduling soon as possible on the right side. Lastly he does that he has to wait 4 months from his last injection for surgery on the left. Thank you for including me in the care of this patient. Please do not hesitate to contact my office if you have any additional questions or concerns. The patient did complete the COVID-19 screening handout and was deemed healthy to move forward with this appointmen t.This visit is a face-to-fa ce visit during the COVID-19 pandemic Public Health Emergency. Based on my clinical judgment, I felt that this visit could not be provided safely and appropriat david via TeleHealth . Based on available informatio n prior to presentati on, the patient had a high risk of significan t worsening and potential functional impairment affecting ADLs if the visit was not completed today. The patient was seen in the office after following PPE use, Workforce Safety, Patient Safety and Infection Control protocols for all services provided today in accordance with [facility] and CDC guidelines . Health Concerns Section Related Observation LastModified by Organization Detai ls LastModified Time None Recorded Concern Status LastModified by Organization Details LastModified Time None Recorded Advance Directives Directive None Recorded Payers Encounter Date Sequence Insurance Name Policy Number Policy Archibald Covered Member ID Archibald Member ID Guarantor Name 04/07/2022 1 [facility] [id number] Edgar Hankins [id number] Edgar Hankins 06/22/2022 1 [facility] [id number] Edgar Hankins [id number] Edgar Hankins 09/14/2022 1 [facility] [id number] Edgar Owensucher [id number] Edgar Hankins 12/14/2022 1 [facility] [id number] Edgar Cr [id number] Edgar Cr 07/28/2023 1 [facility] [id number] Edgar Owensucher [id number] Edgar Hankins Notes Date Note Type Note Provider Name and Address Organization Details Recorded Time 04/07/2022 text/html The patient is a pleasant 51-year-old. He is here today with his . He has been seen previously by my colleague Parker Alegria. He has had issues with both of his knees for several years. In 2007 he had bilateral knee arthroscopies for meniscal injuries. He had good pain relief following. Over the last 2 to 3 years has had worsening pain. He is taking orthopedic providers closer to home. He had injections at home and other nonoperative modalities. He was told he was too young for knee replacements. He eventually saw Parker. He has had a Zilretta injection in the left knee in January. He had the right knee several months ago before his last injection on the left. He has pain bilaterally. His right side is worse than his left. 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 This does provide him some relief. On the left he does not brace at this, however he does not have any symptoms of instability. He is also tried physical therapy. Last round of physical therapy was over 6 months ago. He uses Celebrex for pain control as well. He is taking this currently. He is not sure if this helps him but it does feel like it takes the edge off. He is on his feet at work. 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 He has pain at the end of the day. He needs to elevate and ice his knees at the end of the day. Sometimes he uses heat. He is really at wits end when it comes to his knees. Pain is made worse with standing or walking on uneven surfaces. This pain improves with rest but does get swollen bilaterally and stiff. He is interested today in discussing treatment including knee replacement surgery. PATRICE MARTINES MD [address] [place] [address], [phone], [facility] 04/08/2022 09:21:37 06/22/2022 text/html Pt is 4 weeks s/ p {{left right* bilate ral}} TKA presenting today without complaints. The patient is ambulating without the use of an assistive device. Reports improvement in pain over the last 4 weeks and has weaned from narcotics. Satisfied with progress with physical therapy. Sleep has improved. ANNA BENJAMIN [address] [place] [address], [place], [phone], [facility] 06/22/2022 11:09:01 09/14/2022 text/html Edgar presents today for routine follow-up regarding his bilateral knees. This is his first postoperative visit status post left TKA on 07/30/2022 and his second postoperative visit status post right TKA on 05/22/2022. He is overall doing incredibly well. Reports minimal pain and limitation. 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 PATRICE MARTINES MD [address] [place] [address], [phone], [facility] 09/16/2022 09:45:49 07/28/2023 text/html Mr. Hankins is a 52-year-old male who presents to the clinic for an established patient appointment. The patient has been experiencing pain for approximately 4 months. He has been performing home exercises and has also undergone additional physical therapy. The patient has a history of muscular issues and joint pain. He has been working on strengthening and increasing flexibility. The patient also mentions a history of suture-related allergic reactions. He has been advised to apply hydrocortisone cream to manage the itchiness. The patient has a history of bilateral knee surgery. PATRICE MARTINES MD [address] [place] [address], [phone], [facility] 07/28/2023 09:39:57
--- OUTSIDE RECORDS SUMMARY | 2024-12-14 06:43 | XMS_ITS | Patient Health Record ---
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 Name Role Phone Michele Alexander MD Primary Care Provider Michele Crawford Unavailable [phone] Allergies Allergen (clinical drug ingredient) Drug/Non Drug Allergy documented on EMR Reaction Allergy Type Onset Date Status Pollen Pollen Unknown Allergy Active Reason For Referral No Information Medications Medication SIG (Take, Route, Frequency, Duration) Notes Start Date End Date Status Osteo Bi-Flex Adv Double St - as directed Orally Active Calcium 1 tab Oral for 14 days Active Gatzke 3 1000 MG 1 capsule Orally Onc e a day for 30 day(s) Active Sildenafil Citrate 100 MG 1 tablet as ne eded Orally Once a day for 30 day(s) Active Multivitamin - 1 tablet Orally Once a day for 30 day(s) Active Vyvanse 50 MG 1 capsule in the mor saibno Orally Once a day ADHD Active clonazePAM 0.5 MG 1 tablet at bedtime Orally Once a day Active Naproxen 500 MG 1 tablet with food o r milk as needed Orally every 12 hrs Active Immunizations Vaccine Route Administration Date Status Comme nts Influenza Unknown 07/16/2021 Administered Problems Problem Type SNOMED Code ICD Code Onset Dates Problem Status W/U Status Risk Notes Problem 139409068 Encounter for screening for malignant neoplasm of colon (Z12.11) Active confirmed Problem [id number] Pre-procedural examination (Z01.818) Active confirmed Problem Diverticulosis of colon (785750575) Diverticulosis of colon (K57.30) Active confirmed Plan Of Treatment Future Test Test Name Order Date COLONOSCOPY 07/30/2021 Insurance Providers Payer Name Payer Address Payer Phone Subscriber Number Group Number Insured Name Patient Relationship to Insured Coverage Start Date Coverage End Date [facility] [address] [place], [place] [phone] [id number] RUBIA [id number] Self - patient is the insured Medical (General) History Medical History History ICD Code ADHD Denies LA,DM,CVA,Lung disease,renal dise ase COVID in 08/2020 Sleep apnea-uses CPAP Surgical History Surgery Date(Month/Year) Meniscus x 2 2007 Umbilical hernia with mesh
--- OUTSIDE RECORDS SUMMARY | 2024-12-14 06:43 | XMS_ITS | Continuity of Care Document ---
Author Name [facility] Organization [facility] Care Team Providers Care Tool Maintenance Technician Name Role Phone [facility] Unavailable Unavailable Problems Combined list of problems from [facility] and [facility] facilities. It does not include entries that were removed or entered in error. Problem Status Onset Date Problem Type Date of Resolution Comments Source Attention deficit hyperactivity disorder Active Condition Jan 28, 2024 Entered By: MIGUEL CORTÉS Comment: updated. [place] Benign prostatic hyperplasia Active Condition [place] Erectile dysfunction Active Condition [place] Hypertension Active Condition [facility] OA - Osteoarthritis of knee Active Condition Apr 23, 2022 Entered By: IMELDA LAWRENCE Comment: Both knees [place] Posttraumatic stress disorder Active Condition Jan 28, 2024 Entered By: MIGUEL CORTÉS Comment: updated. [facility] Sleep apnea Active Condition Jan 28, 2024 Entered By: MIGUEL CORTÉS Comment: Using CPAP. Updated. [place] Diagnosis: ICD-10-CM F43.10 Post-traumatic stress disorder, unspecified Active Diagnosis [place] Diagnosis: ICD-10-CM F90.9 Attention-deficit hyperactivity disorder, unspecified type Active Diagnosis [facility] Diagnosis: ICD-10-CM I10 Essential (primary) hypertension Active Diagnosis [place] Medications Combined list of outpatient medications from [facility] and [facility] facilities.Medications provided include 1) outpatient medications from the last 15 months, and 2) patient-reported medications. Medication Details Route Status Patient Instructions Prescription Expires Prescription Number Last Dispense Date Ordering Provider Order Date Order Qty Source LISDEXAMFET AMINE DIMESYLATE 40MG CAP,ORAL TAKE ONE CAPSULE BY MOUTH ONCE DAILY FOR ADHD ORAL ACTIVE 12/16/2024 [id number] Araceli LADD 2024 30 [place] LISDEXAMFET AMINE DIMESYLATE 40MG CAP,ORAL TAKE ONE CAPSULE BY MOUTH ONCE DAILY FOR ADHD ORAL DISCONT INUED (EDIT) 11/23/2024 [id number] 5 Araceli LADD 2024 30 [place] LISDEXAMFET AMINE DIMESYLATE 40MG CAP,ORAL TAKE ONE CAPSULE BY MOUTH ONCE DAILY FOR ADHD NEXT FILL 08/16/24 ORAL DISCONT INUED (EDIT) 08/17/2024 [id number] Araceli LADD JULIAN G 2023 30 [place] LISDEXAMFET AMINE DIMESYLATE 40MG CAP,ORAL TAKE ONE CAPSULE BY MOUTH ONCE DAILY FOR ADHD ORAL DISCONT INUED (EDIT) 07/19/2024 [id number] 4 Araceli LADD JULIAN G 2023 30 [place] LISDEXAMFET AMINE DIMESYLATE 40MG CAP,ORAL TAKE ONE CAPSULE BY MOUTH ONCE DAILY FOR ADHD NEXT FILL 10/20/24* * ORAL 10/21/2024 [id number] 4 Araceli LADD G 2023 30 [place] LISDEXAMFET AMINE DIMESYLATE 40MG CAP,ORAL TAKE ONE CAPSULE BY MOUTH ONCE DAILY FOR ADHD NEXT FILL 09/13/24 ORAL 09/16/2024 [id number] 4 Araceli LADD G 2023 30 [place] LISDEXAMFET AMINE DIMESYLATE 50MG CAP,ORAL TAKE ONE CAPSULE BY MOUTH ONCE DAILY FOR ADHD NEXT FILL 06/09/24 ORAL DISCONT INUED 05/12/2024 [id number] GLORIA JASMINE 2023 30 [place] LISDEXAMFET AMINE DIMESYLATE 50MG CAP,ORAL TAKE ONE CAPSULE BY MOUTH ONCE DAILY FOR ADHD NEXT FILL 04/10/24 ORAL DISCONT INUED 04/12/2024 [id number] 4 GLORIA JASMINE 2023 30 [place] LISDEXAMFET AMINE DIMESYLATE 50MG CAP,ORAL TAKE ONE CAPSULE BY MOUTH ONCE DAILY FOR ADHD NEXT FILL 02/08/24 ORAL DISCONT INUED 02/10/2024 [id number] 4 Araceli LADD 2023 30 [place] LISDEXAMFET AMINE DIMESYLATE 50MG CAP,ORAL TAKE ONE CAPSULE BY MOUTH ONCE DAILY FOR ADHD ORAL DISCONT INUED 12/09/2023 [id number] 4 JUAN CORTÉS 2023 30 [place] LISDEXAMFET AMINE DIMESYLATE 50MG CAP,ORAL TAKE ONE CAPSULE BY MOUTH ONCE DAILY FOR ADHD NEXT FILL 11/08/23 ORAL DISCONT INUED BY PROVIDE R 11/10/2023 [id number] 4 JUAN CORTÉS 2023 30 [place] LISDEXAMFET AMINE DIMESYLATE 50MG CAP,ORAL TAKE ONE CAPSULE BY MOUTH ONCE DAILY FOR ADHD NEXT FILL 06/20/24* * ORAL 07/12/2024 [id number] 4 Araceli LADD G 2023 7 [place] LISDEXAMFET AMINE DIMESYLATE 50MG CAP,ORAL TAKE ONE CAPSULE BY MOUTH ONCE DAILY FOR ADHD NEXT FILL 06/09/24 ORAL 06/09/2024 [id number] GLORIA JASMINE 2023 30 [place] LISDEXAMFET AMINE DIMESYLATE 50MG CAP,ORAL TAKE ONE CAPSULE BY MOUTH ONCE DAILY FOR ADHD NEXT FILL 03/07/24 ORAL 02/27/2024 [id number] 4 JUAN CORTÉS 2023 30 [place] LISDEXAMFET AMINE DIMESYLATE 50MG CAP,ORAL TAKE ONE CAPSULE BY MOUTH ONCE DAILY FOR ADHD NEXT FILL 01/07/24 ORAL 01/07/2024 [id number] 4 JUAN CORTÉS 2023 30 [place] LISINOPRIL 40MG TAB TAKE ONE TABLET BY MOUTH ONCE DAILY ORAL ACTIVE SHERIF LAWRENCE SA [place] METOPROLOL SUCCINATE 100MG TAB,SA TAKE ONE TABLET BY MOUTH ONCE DAILY ORAL ACTIVE SHERIF LAWRENCE [place] NAPROXEN 500MG TAB TAKE ONE TABLET BY MOUTH ONCE DAILY NEEDED ORAL ACTIVE SHERIF LAWRENCE SA [place] SILDENAFIL CITRATE 100MG TAB TAKE ONE TABLET BY MOUTH PRN ORAL ACTIVE SHERIF LAWRENCE SA 2021 [facility] TIRZEPATIDE (WT LOSS) 15MG/0.5ML INJ,SOLN,PE N INJECT 15MG SUBCUTAN EOUSLY WEEKLY SUBCUT ANEOUS ACTIVE SHERIF LAWRENCE SA 2023 [facility] IELD Immunizations Combined list of available immunizations from the Department of Defense and Veterans Affairs facilities. Immunization Series Date Given Administered By Site Reaction Lot Number CVX Code Drug Cycle Counter Status Comments Source INFLUENZA, UNSPECIFIED FORMULATION 2020 88 complet ed [facility] Results Combined list of recent chemistry, hematology and other laboratory results from Department of Defense and Veterans Affairs, ranging from 15 months to all on record, depending upon the facility. Order Name Results Value Reference Range Date Interpretation Specimen Comments Source ETG SCREEN (wx) ETHYL GLUCURONID E [PRESENCE] IN URINE BY SCREEN METHOD Negative 05/25 L Specimen Type: URINE Comment: CATHERINE test are qualitative , any L or H flags only indicate a [facility] alert was sent. This ETG test was developed and its performance characteris tics determined by [place] clinical lab. The [place] Food and Drug Administrat ion has not approved or cleared this test, FDA clearance or approval is not currently required for clinical use. ETG cutoff 500 ng/mL Ordering Provider: MIGUEL CORTÉS Report Released Date/Time: Mar 30, 2023 07:56 AM Reporting Lab: [facility] [address] [facility] [address] Performing Lab: [facility] [address] [facility] [address] [facility] LD METHADON E SCREEN METHADONE [PRESENCE] IN URINE BY SCREEN METHOD None detected (Negativ e) 05/25 L Specimen Type: URINE Comment: CATHERINE test are qualitative , any L or H flags only indicate a [facility] alert was sent. Ordering Provider: MIGUEL CORTÉS Report Released Date/Time: Mar 30, 2023 07:56 AM Reporting Lab: [facility] [address] [facility] [address] Performing Lab: [facility] [address] [facility] [address] [place] OXYCODON E SCREEN PANEL OXYCODONE [PRESENCE] IN URINE BY SCREEN METHOD NONE-DET ECTED - 100 05/25 Specimen Type: URINE Comment: Urine with Cr <5 is diluted or substituted . Cr between 5 and 20 is very dilute. Urine with SG of 1.001 or less is diluted or substituted . SG of 1.003 or less is very dilute. Urine with a pH <3 or >11 has been adulterated and is unsuitable for testing by our current method. Urine with pH between 3 and 4 OR 10 and 11 may have been adulterated . Ordering Provider: MIGUEL CORTÉS Report Released Date/Time: Mar 30, 2023 07:56 AM Reporting Lab: [facility] [address] [facility] [address] Performing Lab: [facility] [address] [facility] [address] [place] OXYCODON E SCREEN PANEL PH OF URINE 5.4 [pH] 4 - 10 05/25 Specimen Type: URINE Comment: Urine with Cr <5 is diluted or substituted . Cr between 5 and 20 is very dilute. Urine with SG of 1.001 or less is diluted or substituted . SG of 1.003 or less is very dilute. Urine with a pH <3 or >11 has been adulterated and is unsuitable for testing by our current method. Urine with pH between 3 and 4 OR 10 and 11 may have been adulterated . Ordering Provider: MIGUEL CORTÉS Report Released Date/Time: Mar 30, 2023 07:56 AM Reporting Lab: [facility] [address] [facility] [address] Performing Lab: [address] [address] [place] OXYCODON E SCREEN PANEL CREATININE [MASS/VOLU ME] IN URINE 270.86 mg/dL 05/25 Specimen Type: URINE Comment: Urine with Cr <5 is diluted or substituted . Cr between 5 and 20 is very dilute. Urine with SG of 1.001 or less is diluted or substituted . SG of 1.003 or less is very dilute. Urine with a pH <3 or >11 has been adulterated and is unsuitable for testing by our current method. Urine with pH between 3 and 4 OR 10 and 11 may have been adulterated . Ordering Provider: MIGUEL CORTÉS Report Released Date/Time: Mar 30, 2023 07:56 AM Reporting Lab: [facility] [employer] [address] Performing Lab: [address] [address] [employer] [place] OXYCODON E SCREEN PANEL SPECIFIC GRAVITY OF URINE 1.025 1.003 - 1.020 05/25 H Specimen Type: URINE Comment: Urine with Cr <5 is diluted or substituted . Cr between 5 and 20 is very dilute. Urine with SG of 1.001 or less is diluted or substituted . SG of 1.003 or less is very dilute. Urine with a pH <3 or >11 has been adulterated and is unsuitable for testing by our current method. Urine with pH between 3 and 4 OR 10 and 11 may have been adulterated . Ordering Provider: MIGEUL CORTÉS Report Released Date/Time: Mar 30, 2023 07:56 AM Reporting Lab: [facility] [address] [address] Performing Lab: [address] [address] [place] [employer] [place] ALCOHOL, ETHYL URINE PANEL ETHANOL [MASS/VOLU ME] IN URINE NONE-DET ECTEDmg/ dL - 10 05/25 Specimen Type: URINE Comment: Urine with Cr <5 is diluted or substituted . Cr between 5 and 20 is very dilute. Urine with SG of 1.001 or less is diluted or substituted . SG of 1.003 or less is very dilute. Urine with a pH <3 or >11 has been adulterated and is unsuitable for testing by our current method. Urine with pH between 3 and 4 OR 10 and 11 may have been adulterated . Ordering Provider: MIGUEL CORTÉS Report Released Date/Time: Mar 30, 2023 07:56 AM Reporting Lab: [facility] [place] [address] [address] Performing Lab: [facility] [address] [address] [place] ALCOHOL, ETHYL URINE PANEL PH OF URINE 5.4 [pH] 4 - 10 05/25 Specimen Type: URINE Comment: Urine with Cr <5 is diluted or substituted . Cr between 5 and 20 is very dilute. Urine with SG of 1.001 or less is diluted or substituted . SG of 1.003 or less is very dilute. Urine with a pH <3 or >11 has been adulterated and is unsuitable for testing by our current method. Urine with pH between 3 and 4 OR 10 and 11 may have been adulterated . Ordering Provider: MIGUEL CORTÉS Report Released Date/Time: Mar 30, 2023 07:56 AM Reporting Lab: [address] [address] Performing Lab: [address] [address] [place] ALCOHOL, ETHYL URINE PANEL CREATININE [MASS/VOLU ME] IN URINE 270.86 mg/dL 05/25 Specimen Type: URINE Comment: Urine with Cr <5 is diluted or substituted . Cr between 5 and 20 is very dilute. Urine with SG of 1.001 or less is diluted or substituted . SG of 1.003 or less is very dilute. Urine with a pH <3 or >11 has been adulterated and is unsuitable for testing by our current method. Urine with pH between 3 and 4 OR 10 and 11 may have been adulterated . Ordering Provider: MIGUEL CORTÉS Report Released Date/Time: Mar 30, 2023 07:56 AM Reporting Lab: [facility] [address] [address] Performing Lab: [address] [address] [place] ALCOHOL, ETHYL URINE PANEL SPECIFIC GRAVITY OF URINE 1.025 1.003 - 1.020 05/25 H Specimen Type: URINE Comment: Urine with Cr <5 is diluted or substituted . Cr between 5 and 20 is very dilute. Urine with SG of 1.001 or less is diluted or substituted . SG of 1.003 or less is very dilute. Urine with a pH <3 or >11 has been adulterated and is unsuitable for testing by our current method. Urine with pH between 3 and 4 OR 10 and 11 may have been adulterated . Ordering Provider: MIGUEL CORTÉS Report Released Date/Time: Mar 30, 2023 07:56 AM Reporting Lab: [address] [address] Performing Lab: [address] [address] [employer] FENTANYL SCREEN PANEL FENTANYL [PRESENCE] IN URINE BY SCREEN METHOD NONE-DET ECTEDng/ mL 05/25 Specimen Type: URINE Comment: Urine with Cr <5 is diluted or substituted . Cr between 5 and 20 is very dilute. Urine with SG of 1.001 or less is diluted or substituted . SG of 1.003 or less is very dilute. Urine with a pH <3 or >11 has been adulterated and is unsuitable for testing by our current method. Urine with pH between 3 and 4 OR 10 and 11 may have been adulterated . FENTANYL CONFIRMATIO N NOT SENT BY LAB. Ordering Provider: MIGUEL CORTÉS Report Released Date/Time: Mar 30, 2023 07:56 AM Reporting Lab: [facility] [employer] [address] Performing Lab: [address] [address] [employer] FENTANYL SCREEN PANEL PH OF URINE 5.4 [pH] 4 - 10 05/25 Specimen Type: URINE Comment: Urine with Cr <5 is diluted or substituted . Cr between 5 and 20 is very dilute. Urine with SG of 1.001 or less is diluted or substituted . SG of 1.003 or less is very dilute. Urine with a pH <3 or >11 has been adulterated and is unsuitable for testing by our current method. Urine with pH between 3 and 4 OR 10 and 11 may have been adulterated . FENTANYL CONFIRMATIO N NOT SENT BY LAB. Ordering Provider: MIGULE CORTÉS Report Released Date/Time: Mar 30, 2023 07:56 AM Reporting Lab: [address] [address] Performing Lab: [address] [address] [employer] FENTANYL SCREEN PANEL CREATININE [MASS/VOLU ME] IN URINE 267.24 mg/dL 05/25 Specimen Type: URINE Comment: Urine with Cr <5 is diluted or substituted . Cr between 5 and 20 is very dilute. Urine with SG of 1.001 or less is diluted or substituted . SG of 1.003 or less is very dilute. Urine with a pH <3 or >11 has been adulterated and is unsuitable for testing by our current method. Urine with pH between 3 and 4 OR 10 and 11 may have been adulterated . FENTANYL CONFIRMATIO N NOT SENT BY LAB. Ordering Provider: MIGUEL CORTÉS Report Released Date/Time: Mar 30, 2023 07:56 AM Reporting Lab: [address] [address] Performing Lab: [address] [address] [employer] [place] FENTANYL SCREEN PANEL SPECIFIC GRAVITY OF URINE 1.025 1.003 - 1.020 05/25 H Specimen Type: URINE Comment: Urine with Cr <5 is diluted or substituted . Cr between 5 and 20 is very dilute. Urine with SG of 1.001 or less is diluted or substituted . SG of 1.003 or less is very dilute. Urine with a pH <3 or >11 has been adulterated and is unsuitable for testing by our current method. Urine with pH between 3 and 4 OR 10 and 11 may have been adulterated . FENTANYL CONFIRMATIO N NOT SENT BY LAB. Ordering Provider: MIGUEL CORTÉS Report Released Date/Time: Mar 30, 2023 07:56 AM Reporting Lab: [address] [address] Performing Lab: [address] [address] [employer] AMPHETAM TRICIA SCREEN PANEL AMPHETAMIN ES [PRESENCE] IN URINE POSITIVE - 1000 05/25 HH Specimen Type: URINE Comment: Urine with Cr <5 is diluted or substituted . Cr between 5 and 20 is very dilute. Urine with SG of 1.001 or less is diluted or substituted . SG of 1.003 or less is very dilute. Urine with a pH <3 or >11 has been adulterated and is unsuitable for testing by our current method. Urine with pH between 3 and 4 OR 10 and 11 may have been adulterated . Ordering Provider: MIGUEL CORTÉS Report Released Date/Time: Mar 30, 2023 07:56 AM Reporting Lab: [facility] [place] [address] [address] Performing Lab: [address] [address] [place] AMPHETAM TRICIA SCREEN PANEL PH OF URINE 5.4 [pH] 4 - 10 05/25 Specimen Type: URINE Comment: Urine with Cr <5 is diluted or substituted . Cr between 5 and 20 is very dilute. Urine with SG of 1.001 or less is diluted or substituted . SG of 1.003 or less is very dilute. Urine with a pH <3 or >11 has been adulterated and is unsuitable for testing by our current method. Urine with pH between 3 and 4 OR 10 and 11 may have been adulterated . Ordering Provider: MIGUEL CORTÉS Report Released Date/Time: Mar 30, 2023 07:56 AM Reporting Lab: [facility] [address] [address] Performing Lab: [address] [address] [place] AMPHETAM TRICIA SCREEN PANEL CREATININE [MASS/VOLU ME] IN URINE 270.86 mg/dL 05/25 Specimen Type: URINE Comment: Urine with Cr <5 is diluted or substituted . Cr between 5 and 20 is very dilute. Urine with SG of 1.001 or less is diluted or substituted . SG of 1.003 or less is very dilute. Urine with a pH <3 or >11 has been adulterated and is unsuitable for testing by our current method. Urine with pH between 3 and 4 OR 10 and 11 may have been adulterated . Ordering Provider: MIGUEL CORTÉS Report Released Date/Time: Mar 30, 2023 07:56 AM Reporting Lab: [address] [address] Performing Lab: [address] [address] [place] AMPHETAM TRICIA SCREEN PANEL SPECIFIC GRAVITY OF URINE 1.025 1.003 - 1.020 05/25 H Specimen Type: URINE Comment: Urine with Cr <5 is diluted or substituted . Cr between 5 and 20 is very dilute. Urine with SG of 1.001 or less is diluted or substituted . SG of 1.003 or less is very dilute. Urine with a pH <3 or >11 has been adulterated and is unsuitable for testing by our current method. Urine with pH between 3 and 4 OR 10 and 11 may have been adulterated . Ordering Provider: MIGULE CORTÉS Report Released Date/Time: Mar 30, 2023 07:56 AM Reporting Lab: [address] [address] Performing Lab: [address] [address] [place] BENZODIA ZEPINES SCREEN PANEL BENZODIAZE PINES [PRESENCE] IN URINE BY SCREEN METHOD NONE-DET ECTED - 200 05/25 Specimen Type: URINE Comment: Urine with Cr <5 is diluted or substituted . Cr between 5 and 20 is very dilute. Urine with SG of 1.001 or less is diluted or substituted . SG of 1.003 or less is very dilute. Urine with a pH <3 or >11 has been adulterated and is unsuitable for testing by our current method. Urine with pH between 3 and 4 OR 10 and 11 may have been adulterated . Ordering Provider: MIGUEL CORTÉS Report Released Date/Time: Mar 30, 2023 07:56 AM Reporting Lab: [facility] [address] [address] Performing Lab: [address] [address] [place] BENZODIA ZEPINES SCREEN PANEL PH OF URINE 5.4 [pH] 4 - 10 05/25 Specimen Type: URINE Comment: Urine with Cr <5 is diluted or substituted . Cr between 5 and 20 is very dilute. Urine with SG of 1.001 or less is diluted or substituted . SG of 1.003 or less is very dilute. Urine with a pH <3 or >11 has been adulterated and is unsuitable for testing by our current method. Urine with pH between 3 and 4 OR 10 and 11 may have been adulterated . Ordering Provider: MIGUEL CORTÉS Report Released Date/Time: Mar 30, 2023 07:56 AM Reporting Lab: [facility] [place] [facility] [address] [facility] [address] Performing Lab: [address] [address] [employer] [place] BENZODIA ZEPINES SCREEN PANEL CREATININE [MASS/VOLU ME] IN URINE 270.86 mg/dL 05/25 Specimen Type: URINE Comment: Urine with Cr <5 is diluted or substituted . Cr between 5 and 20 is very dilute. Urine with SG of 1.001 or less is diluted or substituted . SG of 1.003 or less is very dilute. Urine with a pH <3 or >11 has been adulterated and is unsuitable for testing by our current method. Urine with pH between 3 and 4 OR 10 and 11 may have been adulterated . Ordering Provider: MIGUEL CORTÉS Report Released Date/Time: Mar 30, 2023 07:56 AM Reporting Lab: [facility] [address] [address] Performing Lab: [facility] [employer] [address] [employer] [place] BENZODIA ZEPINES SCREEN PANEL SPECIFIC GRAVITY OF URINE 1.025 1.003 - 1.020 05/25 H Specimen Type: URINE Comment: Urine with Cr <5 is diluted or substituted . Cr between 5 and 20 is very dilute. Urine with SG of 1.001 or less is diluted or substituted . SG of 1.003 or less is very dilute. Urine with a pH <3 or >11 has been adulterated and is unsuitable for testing by our current method. Urine with pH between 3 and 4 OR 10 and 11 may have been adulterated . Ordering Provider: MIGUEL CORTÉS Report Released Date/Time: Mar 30, 2023 07:56 AM Reporting Lab: [facility] [address] [address] Performing Lab: [address] [address] [place] BUPRENOR PHINE SCREEN PANEL BUPRENORPH INE [PRESENCE] IN URINE NONE-DET ECTED 05/25 Specimen Type: URINE Comment: Urine with Cr <5 is diluted or substituted . Cr between 5 and 20 is very dilute. Urine with SG of 1.001 or less is diluted or substituted . SG of 1.003 or less is very dilute. Urine with a pH <3 or >11 has been adulterated and is unsuitable for testing by our current method. Urine with pH between 3 and 4 OR 10 and 11 may have been adulterated . Ordering Provider: MIGUEL CORTÉS Report Released Date/Time: Mar 30, 2023 07:56 AM Reporting Lab: [address] [address] Performing Lab: [facility] [address] [address] [place] BUPRENOR PHINE SCREEN PANEL PH OF URINE 5.4 [pH] 4 - 10 05/25 Specimen Type: URINE Comment: Urine with Cr <5 is diluted or substituted . Cr between 5 and 20 is very dilute. Urine with SG of 1.001 or less is diluted or substituted . SG of 1.003 or less is very dilute. Urine with a pH <3 or >11 has been adulterated and is unsuitable for testing by our current method. Urine with pH between 3 and 4 OR 10 and 11 may have been adulterated . Ordering Provider: MIGUEL CORTÉS Report Released Date/Time: Mar 30, 2023 07:56 AM Reporting Lab: [facility] [address] [address] Performing Lab: [address] [address] [place] BUPRENOR PHINE SCREEN PANEL CREATININE [MASS/VOLU ME] IN URINE 270.86 mg/dL 05/25 Specimen Type: URINE Comment: Urine with Cr <5 is diluted or substituted . Cr between 5 and 20 is very dilute. Urine with SG of 1.001 or less is diluted or substituted . SG of 1.003 or less is very dilute. Urine with a pH <3 or >11 has been adulterated and is unsuitable for testing by our current method. Urine with pH between 3 and 4 OR 10 and 11 may have been adulterated . Ordering Provider: MIGUEL CORTÉS Report Released Date/Time: Mar 30, 2023 07:56 AM Reporting Lab: [place] [facility] [address] [address] Performing Lab: [address] [address] [employer] BUPRENOR PHINE SCREEN PANEL SPECIFIC GRAVITY OF URINE 1.025 1.003 - 1.020 05/25 H Specimen Type: URINE Comment: Urine with Cr <5 is diluted or substituted . Cr between 5 and 20 is very dilute. Urine with SG of 1.001 or less is diluted or substituted . SG of 1.003 or less is very dilute. Urine with a pH <3 or >11 has been adulterated and is unsuitable for testing by our current method. Urine with pH between 3 and 4 OR 10 and 11 may have been adulterated . Ordering Provider: MIGUEL CORTÉS Report Released Date/Time: Mar 30, 2023 07:56 AM Reporting Lab: [place] [employer] [facility] [address] [address] Performing Lab: [place] [facility] [employer] [address] [address] [employer] CANNABIN OIDS SCREEN PANEL CANNABINOI DS [PRESENCE] IN URINE BY SCREEN METHOD POSITIVE - 50 05/25 HH Specimen Type: URINE Comment: Urine with Cr <5 is diluted or substituted . Cr between 5 and 20 is very dilute. Urine with SG of 1.001 or less is diluted or substituted . SG of 1.003 or less is very dilute. Urine with a pH <3 or >11 has been adulterated and is unsuitable for testing by our current method. Urine with pH between 3 and 4 OR 10 and 11 may have been adulterated . Ordering Provider: MIGUEL CORTÉS Report Released Date/Time: Mar 30, 2023 07:56 AM Reporting Lab: [facility] [address] [address] Performing Lab: [facility] [address] [address] [place] CANNABIN OIDS SCREEN PANEL PH OF URINE 5.4 [pH] 4 - 10 05/25 Specimen Type: URINE Comment: Urine with Cr <5 is diluted or substituted . Cr between 5 and 20 is very dilute. Urine with SG of 1.001 or less is diluted or substituted . SG of 1.003 or less is very dilute. Urine with a pH <3 or >11 has been adulterated and is unsuitable for testing by our current method. Urine with pH between 3 and 4 OR 10 and 11 may have been adulterated . Ordering Provider: MIGUEL CORTÉS Report Released Date/Time: Mar 30, 2023 07:56 AM Reporting Lab: [address] [address] Performing Lab: [address] [address] [place] CANNABIN OIDS SCREEN PANEL CREATININE [MASS/VOLU ME] IN URINE 270.86 mg/dL 05/25 Specimen Type: URINE Comment: Urine with Cr <5 is diluted or substituted . Cr between 5 and 20 is very dilute. Urine with SG of 1.001 or less is diluted or substituted . SG of 1.003 or less is very dilute. Urine with a pH <3 or >11 has been adulterated and is unsuitable for testing by our current method. Urine with pH between 3 and 4 OR 10 and 11 may have been adulterated . Ordering Provider: MIGUEL CORTÉS Report Released Date/Time: Mar 30, 2023 07:56 AM Reporting Lab: [facility] [address] [address] Performing Lab: [address] [address] [place] CANNABIN OIDS SCREEN PANEL SPECIFIC GRAVITY OF URINE 1.025 1.003 - 1.020 05/25 H Specimen Type: URINE Comment: Urine with Cr <5 is diluted or substituted . Cr between 5 and 20 is very dilute. Urine with SG of 1.001 or less is diluted or substituted . SG of 1.003 or less is very dilute. Urine with a pH <3 or >11 has been adulterated and is unsuitable for testing by our current method. Urine with pH between 3 and 4 OR 10 and 11 may have been adulterated . Ordering Provider: MIGUEL CORTÉS Report Released Date/Time: Mar 30, 2023 07:56 AM Reporting Lab: [place] [employer] [facility] [address] [address] Performing Lab: [facility] [address] [address] [place] [employer] COCAINE SCREEN PANEL COCAINE [PRESENCE] IN URINE BY SCREEN METHOD NONE-DET ECTED - 300 05/25 Specimen Type: URINE Comment: Urine with Cr <5 is diluted or substituted . Cr between 5 and 20 is very dilute. Urine with SG of 1.001 or less is diluted or substituted . SG of 1.003 or less is very dilute. Urine with a pH <3 or >11 has been adulterated and is unsuitable for testing by our current method. Urine with pH between 3 and 4 OR 10 and 11 may have been adulterated . Ordering Provider: MIGUEL CORTÉS Report Released Date/Time: Mar 30, 2023 07:56 AM Reporting Lab: [place] [employer] [facility] [address] [address] Performing Lab: [facility] [employer] [address] [address] [place] COCAINE SCREEN PANEL PH OF URINE 5.4 [pH] 4 - 10 05/25 Specimen Type: URINE Comment: Urine with Cr <5 is diluted or substituted . Cr between 5 and 20 is very dilute. Urine with SG of 1.001 or less is diluted or substituted . SG of 1.003 or less is very dilute. Urine with a pH <3 or >11 has been adulterated and is unsuitable for testing by our current method. Urine with pH between 3 and 4 OR 10 and 11 may have been adulterated . Ordering Provider: MIGUEL CORTÉS Report Released Date/Time: Mar 30, 2023 07:56 AM Reporting Lab: [place] [employer] [address] Performing Lab: [facility] [address] [facility] [address] [place] COCAINE SCREEN PANEL CREATININE [MASS/VOLU ME] IN URINE 270.86 mg/dL 20 05/25 Specimen Type: URINE Comment: Urine with Cr <5 is diluted or substituted . Cr between 5 and 20 is very dilute. Urine with SG of 1.001 or less is diluted or substituted . SG of 1.003 or less is very dilute. Urine with a pH <3 or >11 has been adulterated and is unsuitable for testing by our current method. Urine with pH between 3 and 4 OR 10 and 11 may have been adulterated . Ordering Provider: MIGUEL CORTÉS Report Released Date/Time: Mar 30, 2023 07:56 AM Reporting Lab: [address] [address] Performing Lab: [address] [address] [place] COCAINE SCREEN PANEL SPECIFIC GRAVITY OF URINE 1.025 1.003 - 1.020 05/25 H Specimen Type: URINE Comment: Urine with Cr <5 is diluted or substituted . Cr between 5 and 20 is very dilute. Urine with SG of 1.001 or less is diluted or substituted . SG of 1.003 or less is very dilute. Urine with a pH <3 or >11 has been adulterated and is unsuitable for testing by our current method. Urine with pH between 3 and 4 OR 10 and 11 may have been adulterated . Ordering Provider: MIGUEL CORTÉS Report Released Date/Time: Mar 30, 2023 07:56 AM Reporting Lab: [address] [address] Performing Lab: [address] [address] [employer] Vital Signs Combined list of inpatient and outpatient Vital Signs from Department of Defense and Veterans Affairs, ranging from 12 months to all on record, depending upon the facility. Vital Sign Value Date Comments Source SYSTOLIC BLOOD PRESSURE 150 06/13/20 24 14:42:06 [facility] DIASTOLIC BLOOD PRESSURE 85 024 14:42:06 [facility] PULSE OXIMETRY 98 06/13/2024 14:42:06 [facility] WEIGHT 285.6 06/13/2024 14:42:06 [facility] BMI 41 kg/m2 06/13/2024 14:42:06 [facility] PAIN 0 06/13/2024 14:42:06 [facility] HEIGHT 70 06/13/2024 14:42:06 [facility] TEMPERATURE 98.1 06/13/2024 14:42:06 [facility] PULSE 57 06/13/2024 14:42:06 [facility] RESPIRATION 18 06/13/2024 14:42:06 [facility] Encounters Combined list of: 1) Encounters from Department of Veterans Affairs facilities going backup to the last 18 months, not all VA inpatient encounters are included; 2) Encounters from the Department of Defense facilities going backup to 280 months. Location Location Details Encounter Type Encounter Number Reason For Visit Attending Provider ADM Date DC Date Status Disposition Source [facility] Outpatient Encounter [id number] 06/29 [facility] [place] PSY[place] W PT 60 MINUTES [id number] Diagnos is: ICD-10- CM F43.10 Post-tr aumatic stress disorde r, unspeci fied Marcia HUNTER YLER 07/14 [place] [facility] Out[facility] Encounter [id number] 08/09 [facility] Encounter [id number] 08/09 [facility] [place] OFF[place] O/P EST MOD 30-39 MIN [id number] Diagnos is: ICD-10- CM F90.9 Attenti on-defi cit hyperac tivity disorde r, unspeci fied type MIGUEL CORTÉS 08/27 [place] [facility] Out[facility] Encounter [id number] 08/27 [facility] Encounter [id number] 10/11 [facility] Encounter [id number] 10/11 [facility] En[facility] [id number] 11/09 [facility] Encounter [id number] 11/12 [facility] PSYTX W PT 60 MINUTES [id number] Diagnos is: ICD-10- CM F43.10 Post-tr aumatic stress disorde r, unspeci fied Marcia HUNTER 11/24 [place] [facility] Out[facility] Encounter [id number] 12/06 [facility] En[facility] [id number] 12/07 [facility] [place] PSY[place] W PT 60 MINUTES [id number] Diagnos is: ICD-10- CM F43.10 Post-tr aumatic stress disorde r, unspeci fied Marcia HUNTER YLER 12/23 [place] [facility] Outpatient Encounter [id number] Marcia HUNTER YLER 12/23 [facility] En[facility] [id number] 01/10 [facility] Outpatient Encounter [id number] 01/27 [facility] [place] OFF[place] O/P EST MOD 30 MIN [id number] Diagnos is: ICD-10- CM F90.9 Attenti on-defi cit hyperac tivity disorde r, unspeci fied type ROOT,MIGUEL A 01/27 [place] [facility] Outpatient Encounter [id number] 04/12 [facility] En[facility] [id number] 04/12 [facility] [place] PRO PHONE CALL 5-10 MIN [id number] Diagnos is: ICD-10- CM F90.9 Attenti on-defi cit hyperac tivity disorde r, unspeci fied type LUC,W VANESSA 05/10 [place] [facility] Outpatient Encounter [id number] 1.06/13 [facility] [place] OFF[place] O/P EST MOD 30 MIN [id number] Diagnos is: ICD-10- CM I10 Essenti al (primar y) hyperte nsion SAMMY LAWRENCE MARIAM 06/13 [place] OFF/OP CNSLTJ NEW/EST MOD 40 [id number] Diagnos is: ICD-10- CM F90.9 Attenti on-defi cit hyperac tivity disorde r, unspeci fied type [facility] GAL LADD G 06/19 [place] O/P EST MOD 30 MIN [id number] Diagnos is: ICD-10- CM F90.9 Attenti on-defi cit hyperac tivity disorde r, unspeci fied type [facility] GAL LADD G 07/18 [place] O/P EST MOD 30 MIN [id number] Diagnos is: ICD-10- CM F90.9 Attenti on-defi cit hyperac tivity disorde r, unspeci fied type [facility] GAL LADD G 08/17 [place] PSYTX W PT 60 MINUTES [id number] 1BY. [id number] Diagnos is: ICD-10- CM F43.10 Post-tr aumatic stress disorde r, unspeci fied DALE,T YLER 08/25 [place] [facility] Outpatient Encounter [id number] 09/21 [facility] [place] PSYTX W PT 60 MINUTES [id number] Diagnos is: ICD-10- CM F43.10 Post-tr aumatic stress disorde r, unspeci fied DALE,T YLER 09/22 [place] [facility] Outpatient Encounter [id number] 10/24 [facility] [place] PSYTX W PT 60 MINUTES [id number] Diagnos is: ICD-10- CM F43.10 Post-tr aumatic stress disorde r, unspeci fied DALE,T YLER 10/25 [facility] [place] [facility] Outpatient Encounter [id number] 10/31 [facility] MIN[facility]ES [id number] Diagnos is: ICD-10- CM F43.10 Post-tr aumatic stress disorde r, unspeci fied DALE,T YLER 11/01 [facility] Outpatient Encounter [id number] 11/08 [facility] Outpatient Encounter [id number] 11/08 [facility]P EST LOW 20 MIN [id number] Diagnos is: ICD-10- CM F90.9 Attenti on-defi cit hyperac tivity disorde r, unspeci fied type [facility] Outpatient Encounter [id number] 11/23 [facility] PT 60 MINUTES [id number] Diagnos is: ICD-10- CM F43.10 Post-tr aumatic stress disorde r, unspeci fied DALE,T YLER 12/13 [facility] Social History Combined list of available smoking, tobacco, and other social history from Department of Defense and Veterans Affairs facilities. Social History Type Response Date Comment [facility] e Tobacco smoking status [facility] VA-TOBACCO NEVER USED 06/13/20 [place] History of tobacco use [place]-TO[place]AC[place] NEVER USED 03/30/2023 [place] History of tobacco use [place]-TOBACCO NEVER USED 04/14/2022 [place] Plan of Care List of future care activities from Department of [facility] Affairs facilities. Additional future care activities may be listed in the Assessment and Plan section. Date/Time Care Activity Care Activity Detail Facili ty 02/15/2025 AMBULATORY - PSYCHIATRY [facility] 04/13/2025 AMBULATORY - PSYCHIATRY [facility] 06/12/2025 [facility]BULAT[facility] - MEDICINE [facility]
[2024-12-14 06:48] LABS: MANUAL DIFF FLAG NO
[2024-12-14 06:56] LABS: Basophils Percent Auto 0.4 % (0-2); Eosinophils Absolute Auto 0.3 X10*3/uL (0.0-0.4); Eosinophils Percent Auto 3.8 % (0-4); Hemoglobin 15.1 g/dl (14.0-18.0); Imm Gran Abs Auto 0.04 X10*3/uL (0.00-0.03); Imm Gran Pct Auto 0.5 % (0.0-0.4); Lymphocytes Absolute Auto 1.9 X10*3/uL (1.2-4.9); Lymphocytes Percent Auto 25.2 % (20-40); Mean Corpuscular HGB Conc 34.3 g/dl (31.0-36.0); Mean Corpuscular Hemoglobin 29.3 pg (27.0-33.0); Mean Corpuscular Volume 85.4 fL (80.0-98.0); Mean Platelet Volume 9.6 fL (9.4-12.4); Monocytes Absolute Auto 0.6 X10*3/uL (0.1-1.2); Neutrophils Absolute Auto 4.8 x10*3/uL (2.0-8.3); Neutrophils Percent Auto 62.1 % (45-73); Platelet Count 178 X10*3/uL (160-400); Red Blood Count 5.15 X10*6/uL (4.60-5.80); Red Cell Distribution Width 13.2 % (11.0-16.0); White Blood Count 7.7 X10*3/uL (4.8-10.8)
[2024-12-14 07:10] LABS: Alanine Aminotransferase 19 U/L (0-40); Alkaline Phosphatase 60 U/L (39-117); Anion Gap 11 (12-20); Aspartate Amino Transferase 20 U/L (5-37); Bilirubin Total 1.6 mg/dL (0.0-1.0); Blood Urea Nitrogen 16 mg/dL (9-16); Calcium 9.3 mg/dL (8.4-10.2); Carbon Dioxide 28 mmol/L (22-29); Chloride 110 mmol/L (96-108); Cholesterol 163 mg/dL (<200); Estimated Glomerular Filt Rate > 60; Glucose Fasting 102 mg/dL (60-99); HDL Cholesterol 46 mg/dL (>40); LDL Cholesterol Calculated 101 mg/dL (<100); Magnesium 2.1 mg/dL (1.6-2.6); Potassium 4.3 mmol/L (3.3-5.1); Sodium 145 mmol/L (135-145); Triglycerides 80 mg/dL (<150)
[2024-12-14 07:20] LABS: Uric Acid 4.6 mg/dL (3.4-7.0)
== END 2024-12-14 06:40 | disposition home or self-care (01) ==
LOC: HO.LAB 06:39
PROVIDERS: PCP Internal Medicine Medical Oncology; Visit Provider Internal Medicine Medical Oncology
DX: N40.0 Benign prostatic hyperplasia without lower urinary tract symptoms (principal); M25.561 Pain in right knee; I10 Essential (primary) hypertension
CPT/HCPCS: 36415; 80053; 80061; 83735; 84550; 85025